=== PATIENT | female | born 1960 | race Caucasian/White ===

== ENCOUNTER 2016-12-08 16:08 | Inpatient (IN) ==
[2016-12-08] MEDS ORDERED: ALBUTEROL/IPRATROPIUM 2.5mg-0.5mg/3ml NEB IH ONE (16:21)
[2016-12-08] MEDS ORDERED: ALBUTEROL 2.5mg/0.5ml (0.5%) NEB IPPB ONE (16:44)
[2016-12-08] MEDS ORDERED: ALBUTEROL 2.5mg/0.5ml (0.5%) NEB AEROSOL ONE (16:45)
--- NOTE | 2016-12-08 16:56 | Emergency Department Report ---
SOB HPI - General Chief Complaint: Shortness of Breath/Dyspnea Stated Complaint: diff breathing Time Seen by Provider: 12/08/16 16:20 Source: patient, EMS Mode of arrival: EMS Limitations: no limitations - History of Present Illness 56yo woman presented to the ER for SOA. Pts sx started yesterday; has gotten quickly worse. Pt has also been coughing up copious sputum. Pt has been taking her medications, but they have not helped. Pt called EMS today, because sx got too much to handle. Pt was given duonebs x3 and 125mg IV solumedrol en route to the ER with some improvement in sx. MD Complaint: shortness of breath, cough Onset (ago): hour(s) (36) Severity: severe Consistency/Duration: constant Relieving factors: oxygen, bronchodilators, upright position Exacerbating factors: lying flat, exertion, movement, coughing Known history of: COPD Treatment prior to arrival: bronchodilator, other - Related Data Home Medications Medication Instructions Recorded Confirmed Ipratropium/Albuterol Sulfate 1 puff PO QID PRN #0 05/02/16 12/08/16 [Combivent Respimat Inhal [place]] ARIPiprazole [Aripiprazole] 15 mg PO DAILY 11/30/16 12/08/16 Albuterol Inhaler [Ventolin Hfa] 1 puff ORAL INH Q4H PRN 11/30/16 12/08/16 Atorvastatin Calcium 20 mg PO DAILY 11/30/16 12/08/16 Duloxetine HCl [Cymbalta] 60 mg PO DAILY 11/30/16 12/08/16 Insulin Aspart [Novolog Flexpen] 50 unit SQ TIDWM 11/30/16 12/08/16 Insulin Degludec [Tresiba 150 unit SQ HS 11/30/16 12/08/16 Flextouch U-200] Ipratropium/Albuterol Sulfate 3 ml AEROSOL RTQID PRN 11/30/16 12/08/16 [Iprat-Albut 0.5-3(2.5) mg/3 ml] Lisinopril [Prinivil] 5 mg PO DAILY 11/30/16 12/08/16 Metformin HCl 1,000 mg PO BIDWM 11/30/16 12/08/16 Naproxen 250 mg PO TID 11/30/16 12/08/16 Tiotropium [place] [Spiriva] 1 cap ORAL INH DAILY PRN 11/30/16 12/08/16 Previous Rx's Medication Instructions Recorded gabapentin 300 mg capsule 300 mg PO TID #270 cap 11/12/16 omeprazole 20 mg capsule,delayed 20 mg PO DAILY #90 cap 11/28/16 release hydroCHLOROthiazide 12.5 mg PO DAILY #15 tab 11/30/16 [Hydrochlorothiazide] Allergies Allergy/AdvReac Type Severity Reaction Status Date / Time No Known Drug Allergies Allergy Unknown Verified 12/08/16 16:29 Review of Systems All systems: reviewed and negative except as stated Respiratory: Reports: cough, dyspnea, wheezes PFSH Patient Stated Medical History Peripheral Neuropathy Yes Hypertension Yes Chronic Obstructive Pulmonary Yes Disease (COPD) Diabetes Mellitus Type 2 Yes Gastroesophageal Reflux Yes Disease Osteoarthritis Yes Depression Yes Other Behavioral Health Yes: takes antispycotic/mood stabilizer Clinic Medical History (Last Updated 12/01/16 @ 00:01 by Allegra Albright) Anxiety (Chronic Medical) COPD (chronic obstructive pulmonary disease) (Chronic Medical) Depression (Chronic Medical) Diabetes (Chronic Medical) GERD (gastroesophageal reflux disease) (Chronic Medical) HTN (hypertension) (Chronic Medical) MARGARITA (obstructive sleep apnea) (Chronic Medical) Bronchitis (Resolved Medical) Surgical History: tubal ligation -age 29. Hysterectomy age 45. Right knee replacement-2013 - Social History Smoking status: Current some day smoker Current residence: Apartment/Private Home Physical Exam - Limitations Limitations: no limitations - General General appearance: alert, in distress (Respiratory), obese - Normal Exams: Head:: Normocephalic without trauma Eyes:: Pupils are PERRLA w/ EOMI, No scleral icterus, irritation, or foreign bodies noted ENMT:: No facial trauma, nasal exudates, pharyngeal erythema, or exudates are noted Neck:: Full range of motion, without adenopathy, JVD, bruits or thyromegaly Abdomen:: Bowel sounds positive, soft, non-tender, non-distended, no hepatosplenomegaly, masses or bruits noted Lymphatic:: No lymphadenopathy, or lymphedema noted Musculoskeletal:: No tenderness, or deformity noted, good range of motion, all extremities Integumentary:: No rashes, hives, or bruising noted, hair and nails, without abnormality Neurological:: Patient is alert, and oriented, cranial nerves, motor/sensory/ cerebellar, exams w/o gross deficits, to observation Psychiatric:: Patient exhibits, appropriate attention, emotion and affect - Chest Chest inspection: Present: normal inspection, symmetric chest wall rise, tenderness. Absent: rash - Respiratory Respiratory exam: Present: wheezes (Throughout), crackles (Throughout). Absent : normal lung sounds bilaterally, respiratory distress, prolonged expiratory phase - Cardiovascular Cardiovascular exam: Present: normal rhythm, tachycardia, normal heart sounds, + S1, +S2. Absent: regular rate, systolic murmur, diastolic murmur, +S3, +S4 Course - Consultations Consultation #1: Hospitalist: Will present to dewayne farmer in ER. Time: 17:51 Vital Signs Temperature 98.3 F 12/08/16 16:05 Pulse Rate 109 H 12/08/16 16:05 Respiratory Rate 32 H 12/08/16 16:05 Blood Pressure 171/94 H 12/08/16 16:05 Pulse Oximetry 95 12/08/16 16:05 Temperature 97.3 F 12/09/16 04:00 Pulse Rate 82 12/09/16 07:00 Respiratory Rate 19 12/09/16 07:00 Blood Pressure 162/88 H 12/09/16 07:00 Pulse Oximetry 90 12/09/16 07:00 Shortness of Breath/Dyspnea - Differential Diagnosis Likely: acute exacerbation of chronic obstructive airways disease, congestive heart failure, community acquired pneumonia, asthma with exacerbation - Medical Records Attestation: I reviewed the patient's medical records. - Lab Data Result diagrams: 12/09/16 04:52 12/09/16 04:52 Lab Results 12/08/16 12/08/16 12/08/16 Range/Units 16:47 16:47 16:54 WBC 12.1 H (4.5-11.0) T/MM3 RBC 5.01 (4.00-5.20) M/MM3 Hgb 15.1 (12-16) GM/DL Hct 47.4 H (36-46) % MCV 94.6 (80-100) UM3 MCH 30.1 (26-34) UUG MCHC 31.9 (31-37) GM/DL RDW Std Deviation 48.2 (36.9-50.2) FL Plt Count 231 (130-400) T/MM3 MPV 11.8 (9.4-12.4) UM3 Immature Gran % (Auto) 0.3 (0.0-0.5) % Neut % (Auto) 75.8 H (33-66) % Lymph % (Auto) 17.8 L (23-45) % [place] % (Auto) 5.7 (0-9.0) % Eos % (Auto) 0.2 (0-4) % Baso % (Auto) 0.2 (0-2) % Neut # 9.2 H (1.8-7.7) T/MM3 Lymph # 2.2 (1-4.8) T/MM3 [place] # 0.7 (0-0.8) T/MM3 Eos # 0.0 (0-0.5) T/MM3 Baso # 0.0 (0-0.2) T/MM3 Abs Immat Gran (auto) 0.04 H (0.00-0.03) T/MM3 VBG pH 7.380 (7.31-7.41) VBG pCO2 59 H (40-52) MMHG VBG pO2 72 H (40-52) MMHG VBG HCO3 35 H (22-26) MEQ/L VBG Total CO2 36.7 MEQ/L VBG O2 Saturation 94.0 % VBG Base Excess 7.9 H (-2.0-2.0) MMOL/L O2 Delivery Method Room air Turbidity < 20 (0-20) Sodium 145 H (134-144) MEQ/L Potassium 4.4 (3.6-5) MEQ/L Chloride 100 (98-107) MEQ/L Carbon Dioxide 32 H (22-30) MEQ/L Anion Gap 13 (5-15) MEQ/L BUN 10.0 (7-17) MG/DL Creatinine 0.6 L (0.7-1.2) MG/DL GFR Calculation 103 BUN/Creatinine Ratio 17 (6-26) RATIO Glucose 260 H (65-110) MG/DL Calculated Osmolality 287 H (261-280) MOSM/KG Calcium 10.5 H (8.4-10.2) MG/DL Icterus Index < 2 (0-7) Specimen Hemolysis 18 (0-25) - Radiology Data Attestation: I reviewed the patient's radiology results. CXR: Interval CXR improvement. No acute pathology. Disposition Clinical Impression: COPD Disposition: To [facility] [place] Acute Care Condition: Improved Time of Disposition: 17:45 - Seen By: physician
[2016-12-08] MEDS: MAGNESIUM SULFATE 1gm PREMIX 1 GM/100 ML BAG IV SCH ×2 (18:28→18:50)
[2016-12-08] MEDS ORDERED: ONDANSETRON 4 MG/2 ML INJECTION IVP PRN (19:12)
[2016-12-08] MEDS ORDERED: TIOTROPIUM 18mcg/cap HANDIHALER ORAL INH PRN (19:15)
--- NOTE | 2016-12-08 19:22 | History & Physical Report ---
History of Present Illness Date: 12/08/16 Chief complaint: difficulty breathing HPI: Patient is a pleasant 56-year-old female with history of COPD. She has obstructive sleep apnea and uses CPAP with 2 L at night. Otherwise, she does not use oxygen. She quit smoking last April. She states that 2 days ago she began to have increasing shortness of breath and increasing cough. She also feels lightheaded when she stands up and feels like she might pass out. She has not been eating or drinking well. She states she just "doesn't feel good". She has a mild headache. She has chronic low back pain. She denies any chest pain. She's been coughing up occasional phlegm which is blum colored. No blood in her phlegm. She has felt feverish but her temperature was not elevated. She's had some sweats but no chills. She has some rhinorrhea and sinus congestion but does not feel like she has a cold or allergies. She has some mild nausea but no abdominal pain, no vomiting, no diarrhea or constipation. She is urinating without difficulties. EMS was called secondary to her shortness of breath and she was found to be hypoxic and placed on nonrebreather mask and given 3 DuoNeb treatments and 125 mg of Solu-Medrol. In the emergency room she had a chest x-ray which showed no acute abnormalities. CBC reveals a mildly elevated white count of 12.1 with no significant left shift. Hemoglobin and platelets are normal. Calcium is mildly elevated at 10.5 and sodium was 145. Glucose is 260. VBG showed a pH of 7.38, PCO2 59, PO2 of 72. Blood cultures 2 were obtained. Currently the patient is still needing 6 L of oxygen per nasal cannula with O2 sat around 90%. She is being admitted to CCU for close observation with COPD exacerbation. Patient sees Dr. Clement for primary care. Review of Systems Review of systems: The patient has history of anxiety and schizophrenia and depression and states she is doing well on her current psychiatric medications. Otherwise complaints review of systems is negative other than the above in history of present illness. [facility] Medical History (Last Updated 12/01/16 @ 00:01 by Allegra Albright) Anxiety (Chronic Medical) COPD (chronic obstructive pulmonary disease) (Chronic Medical) Depression (Chronic Medical) Diabetes (Chronic Medical) GERD (gastroesophageal reflux disease) (Chronic Medical) HTN (hypertension) (Chronic Medical) MARGARITA (obstructive sleep apnea) (Chronic Medical) Bronchitis (Resolved Medical) Medical History Updates: Type 2 diabetes mellitus for at least 2 years. Schizophrenia. JEAN/BSO. Cholecystectomy. Tubal ligation. Right total knee surgery. Obstructive sleep apnea for which she uses CPAP and 2 L of oxygen at night Surgical History: tubal ligation -age 29. Hysterectomy age 45. Right knee replacement-2014. Cholecystectomy Family History: No family history of COPD or asthma. Mother of sepsis from the wound and had history of diabetes. Father from bone cancer - Social History Smoking status: Former smoker (quit in April 2016) Substance use type: marijuana Alcohol intake: never (the patient wants to be full code. She wants her daughter Maryan to make medical decisions for her if she is unable to make them herself. Her phone number is [phone]) Current residence: Apartment/Private Home Medications Home Medications Medication Instructions Recorded Confirmed Type Ipratropium/Albuterol Sulfate 1 puff PO QID PRN #0 05/02/16 12/08/16 History [Combivent Respimat Inhal [place]] ARIPiprazole [Aripiprazole] 15 mg PO DAILY 11/30/16 12/08/16 History Albuterol Inhaler [Ventolin Hfa] 1 puff ORAL INH Q4H PRN 11/30/16 12/08/16 History Atorvastatin Calcium 20 mg PO DAILY 11/30/16 12/08/16 History Duloxetine HCl [Cymbalta] 60 mg PO DAILY 11/30/16 12/08/16 History Insulin Aspart [Novolog Flexpen] 50 unit SQ TIDWM 11/30/16 12/08/16 History Insulin Degludec [Tresiba 150 unit SQ HS 11/30/16 12/08/16 History Flextouch U-200] Ipratropium/Albuterol Sulfate 3 ml AEROSOL RTQID PRN 11/30/16 12/08/16 History [Iprat-Albut 0.5-3(2.5) mg/3 ml] Lisinopril [Prinivil] 5 mg PO DAILY 11/30/16 12/08/16 History Metformin HCl 1,000 mg PO BIDWM 11/30/16 12/08/16 History Naproxen 250 mg PO TID 11/30/16 12/08/16 History Tiotropium [place] [Spiriva] 1 cap ORAL INH DAILY PRN 11/30/16 12/08/16 History Allergies Allergy/AdvReac Type Severity Reaction Status Date / Time No Known Drug Allergies Allergy Unknown Verified 12/08/16 16:29 Exam Vital Signs: Temperature 98.3 F 12/08/16 16:05 Pulse Rate 106 H 12/08/16 19:00 Respiratory Rate 32 H 12/08/16 18:45 Blood Pressure 171/94 H 12/08/16 16:05 Pulse Oximetry 90 12/08/16 19:00 Height: 1.59 m Weight: 106.594 kg Comments: Patient is currently on 6 L of oxygen with O2 sat of 90%. Heart rate 110. Blood pressure 143/104. GEN-the patient has moderate conversational dyspnea, mild distress secondary to anxiety and dyspnea HEENT-sclera anicteric, oropharynx is moist NECK-supple CV-borderline tachycardic rate with irregular rhythm CHEST-wheezes throughout the lung [place] ABD-soft, nontender, nondistended with positive bowel sounds -no Macias EXT-no edema NEURO-no focal deficits SKIN-warm and dry and without rashes Psychiatric-mild anxiety, patient denies suicidal or homicidal ideation Results - Labs CBC & Chem 7: 12/08/16 16:47 12/08/16 16:47 - Imaging and Cardiology Chest x-ray Status: image reviewed by me Additional comments: Chest x-ray reveals no obvious infiltrates. Heart size is normal. Assessment and Plan DVT Prophylaxis: SCD's, Lovenox GI Prophylaxis: other Resuscitation Status: Full Code Assessment and Plan: Impression Acute hypoxic respiratory failure COPD exacerbation Obstructive sleep apnea Acute bronchitis Type 2 diabetes mellitus-poorly controlled Hypertension Hypercalcemia Presyncope-possible dehydration Schizophrenia with anxiety Plan Admit as inpatient to CCU for close monitoring with COPD exacerbation and high oxygen needs. Continue breathing treatments, supplemental oxygen, and Solu- Medrol 125 mg IV every 6 hours. Rocephin 1 g IV daily start today. Repeat chest x-ray tomorrow. Sputum for Gram stain, culture and sensitivity. Viral respiratory swab. Monitor Accu-Cheks and give usual home insulin. May need supplemental insulin. Reglan as needed for nausea Lovenox and SCDs for DVT prophylaxis Continue home PPI. We'll give 1 L of IV fluids for dehydration with hypercalcemia and recheck in the morning Greater than 1 hour time spent seeing and evaluating the patient in determining care plan. Hospital Course Summary Disclaimer: The visit summary below is not to be considered part of the above Progress Note.
[2016-12-08] MEDS: NS 1,000 ML IV SCH (19:46)
[2016-12-08] MEDS: ALBUTEROL/IPRATROPIUM 2.5mg-0.5mg/3ml NEB AEROSOL SCH (19:50)
[2016-12-08 19:54] VITALS: BMI 37.9
[2016-12-08] MEDS: CEFTRIAXONE 1 G in NS 100 ML IV SCH (20:11)
[2016-12-08] MEDS: SALINE FLUSH 10ml SYRINGE IVF PRN (20:14)
[2016-12-08] MEDS: METHYLPREDNISOLONE SOD SUCC 125mg/2ml INJECTION IVP SCH (21:25)
[2016-12-08] MEDS: GABAPENTIN 300 MG CAPSULE PO SCH (21:25)
[2016-12-08] MEDS ORDERED: INSULIN DEGLUDEC SQ SCH (22:00)
[2016-12-08] MEDS ORDERED: GLUCOSE ORAL GEL 40% 37.5gm PO PRN (22:12)
[2016-12-08] MEDS ORDERED: INSULIN ASPART 100unit/ml INJECTION SQ PRN (22:12)
[2016-12-08] MEDS ORDERED: DEXTROSE 50% SYRINGE 50ml (1 AMP) IVP PRN (22:27)
[2016-12-08] MEDS: INSULIN GLARGINE 100unit/ml INJECTION SQ SCH (23:30)
[2016-12-08] MEDS: INSULIN ASPART 100unit/ml INJECTION SQ PRN (23:34)
[2016-12-09] MEDS: ALBUTEROL/IPRATROPIUM 2.5mg-0.5mg/3ml NEB AEROSOL SCH ×7 (01:59→23:30)
[2016-12-09] MEDS: METHYLPREDNISOLONE SOD SUCC 125mg/2ml INJECTION IVP SCH ×4 (03:37→21:40)
[2016-12-09] MEDS: SALINE FLUSH 10ml SYRINGE IVF PRN ×2 (03:37→10:21)
[2016-12-09] MEDS: HYDROCODONE/APAP 5mg/325mg TABLET PO PRN (04:57)
[2016-12-09] MEDS: INSULIN ASPART 100unit/ml INJECTION SQ PRN ×4 (05:55→21:41)
[2016-12-09] MEDS: NS 1,000 ML IV SCH ×2 (06:08→15:11)
--- NOTE | 2016-12-09 07:40 | XRay Report ---
INDICATION: dyspnea PROCEDURE: CHEST 2-VIEWS UPRIGHT (PA & LAT) Encounter: Initial COMPARISON: November 30, 2016 Findings: The lungs are stable in appearance without new focal airspace consolidation. There is no pleural effusion or pneumothorax. The heart size, pulmonary vascularity and mediastinal contours are unchanged. IMPRESSION: Stable appearance of the chest. .
[2016-12-09] MEDS: INSULIN ASPART 100unit/ml INJECTION SQ SCH ×3 (08:41→17:25)
--- NOTE | 2016-12-09 08:56 | Progress Note ---
Subjective: The patient states that she's feeling better this morning. She is breathing more easily. She continues to have a cough but it is decreasing. She denies any headache, chest pain or abdominal pain. She still feels lightheaded when she stands up. She is urinating. She has not had a bowel movement yet. She was able to use her CPAP for about 4 hours last night. Appetite is good. Objective Vital signs: Temperature 97.3 F 12/09/16 04:00 Pulse Rate 82 12/09/16 07:00 Respiratory Rate 19 12/09/16 07:00 Blood Pressure 162/88 H 12/09/16 07:00 Pulse Oximetry 90 12/09/16 07:00 Oxygen Delivery Method High Flow Nasal Cannula Oxygen Flow Rate 7 Height: 1.59 m Weight: 95.6 kg Body Mass Index: 37.9 Comments: Urine output 1.25 L since admission last night GEN-alert, oriented, no acute distress. Overall looks much more comfortable than last night HEENT-sclera anicteric, oropharynx is moist NECK-supple CV-distant heart tones, regular rate and rhythm CHEST-and expiratory wheezes bilaterally. Overall wheezes much better than last night ABD-soft, nontender with positive bowel sounds -no Macias EXT-patient has edema of the right foot and mild calf tenderness. Trace edema of the left lower extremity NEURO-no focal deficits SKIN-warm and dry and without rashes Results - Labs CBC & Chem 7: 12/09/16 04:52 12/09/16 04:52 Labs: Calcium has improved from 10.5-9.7. Viral respiratory panel was positive for rhinovirus Blood sugars have been in the 200 range TSH 0.58 AST mildly elevated at 38, a T mildly elevated at 53 Microbiology Results: Microbiology 12/08/16 21:05 Sputum, Expectorated Gram Stain - Final 12/08/16 21:05 Sputum, Expectorated Sputum Culture - Preliminary Early growth - Imaging and Cardiology Chest x-ray Status: image reviewed by me Additional comments: Chest x-ray yesterday, stable appearance of the chest. Chest x-ray today on my read is unchanged from yesterday Assessment and Plan DVT Prophylaxis: SCD's, Lovenox GI Prophylaxis: other Resuscitation Status: Full Code Assessment and Plan: 12/09/2016 Impression Acute hypoxic respiratory failure-still requiring high flow oxygen at approximately 7 L with O2 sats 88-90% COPD exacerbation-improving symptomatically Obstructive sleep apnea Acute bronchitis-rhinovirus positive Type 2 diabetes mellitus-poorly controlled Hypertension Hypercalcemia-resolved Presyncope-possible dehydration-improved but not resolved Schizophrenia with anxiety-mood and anxiety is better today Right lower extremity edema and pain, rule out DVT Plan Regarding acute hypoxic respiratory failure we'll continue breathing treatments , steroids and supplemental oxygen. Continue CPAP at night. Increase activity as tolerated Restart metformin and check hemoglobin A1c regarding diabetes. Give sliding scale insulin DC IV fluids 1 current bag is empty Continue Rocephin for now for COPD exacerbation Restart lisinopril for hypertension. Continue off hydrochlorothiazide due to the patient's lightheadedness with standing Venous Doppler of the right lower extremity to rule out DVT Repeat CBC and basic metabolic profile tomorrow Possible transfer later today if respiratory status is stable to improving - Time spent with patient greater than 35 minutes Sepsis Assessment - Evaluation Sepsis screening result: No Definite Risk Hospital Course Summary Disclaimer: The visit summary below is not to be considered part of the above Progress Note. Hospital Course: 12/08/2016 Impression Acute hypoxic respiratory failure COPD exacerbation Obstructive sleep apnea Acute bronchitis Type 2 diabetes mellitus-poorly controlled Hypertension Hypercalcemia Presyncope-possible dehydration Schizophrenia with anxiety Plan Admit as inpatient to CCU for close monitoring with COPD exacerbation and high oxygen needs. Continue breathing treatments, supplemental oxygen, and Solu- Medrol 125 mg IV every 6 hours. Rocephin 1 g IV daily start today. Repeat chest x-ray tomorrow. Sputum for Gram stain, culture and sensitivity. Viral respiratory swab. Monitor Accu-Cheks and give usual home insulin. May need supplemental insulin. Reglan as needed for nausea Lovenox and SCDs for DVT prophylaxis Continue home PPI. We'll give 1 L of IV fluids for dehydration with hypercalcemia and recheck in the morning Greater than 1 hour time spent seeing and evaluating the patient in determining care plan. 12/09/16 08:58
--- NOTE | 2016-12-09 09:54 | Ultrasound Report ---
EXAM: US venous doppler LE RT. Right lower extremity venous Doppler study. LOCATION OF DICTATION: [facility]. HISTORY: swelling and pain of right lower extremity COMPARISON: None available. DESCRIPTION: Color Doppler interrogation was performed. There is no evidence for deep venous thrombosis. There is good color Doppler flow, normal venous wave forms with respiratory variation and augmentation and compressibility from the common femoral vein, SFV, popliteal vein to at least the veins in the distal calf(s). IMPRESSION: No evidence for deep venous thrombosis. .
--- NOTE | 2016-12-09 09:58 | XRay Report ---
EXAM: XR chest 1V COMPARISON: 12/08/2016. 12/01/2015. HISTORY: hypoxia . Shortness of air on exertion. FINDINGS: The heart is upper limits of normal to mildly enlarged. The pulmonary vascularity appears unremarkable. The lungs are clear. There is no evidence for pleural effusion. There is no evidence for a pneumothorax. No osseous abnormalities are identified. IMPRESSION: The heart is upper limits of normal to mildly enlarged. Otherwise unremarkable without acute process identified. LOCATION OF DICTATION: [facility] .
[2016-12-09] MEDS: ENOXAPARIN 40 MG/0.4 ML INJECTION SQ SCH (10:19)
[2016-12-09] MEDS: DULOXETINE 60 MG CAPSULE PO SCH (10:19)
[2016-12-09] MEDS: GABAPENTIN 300 MG CAPSULE PO SCH ×3 (10:19→21:41)
[2016-12-09] MEDS: OMEPRAZOLE 20 MG CAPSULE PO SCH (10:20)
[2016-12-09] MEDS: LISINOPRIL 5 MG TABLET PO SCH (12:14)
[2016-12-09] MEDS: ARIPiprazole 15 MG TABLET PO SCH (12:14)
[2016-12-09] MEDS: METFORMIN 1,000 MG TABLET PO SCH (17:25)
[2016-12-09] MEDS: CEFTRIAXONE 1 G in NS 100 ML IV SCH (18:40)
[2016-12-09] MEDS: ATORVASTATIN 20 MG TABLET PO SCH (21:41)
[2016-12-09] MEDS: INSULIN GLARGINE 100unit/ml INJECTION SQ SCH (21:42)
[2016-12-10] MEDS: ALBUTEROL/IPRATROPIUM 2.5mg-0.5mg/3ml NEB AEROSOL SCH ×6 (03:05→23:23)
[2016-12-10] MEDS: METHYLPREDNISOLONE SOD SUCC 125mg/2ml INJECTION IVP SCH ×4 (06:11→21:14)
[2016-12-10] MEDS: OMEPRAZOLE 20 MG CAPSULE PO SCH (06:15)
[2016-12-10] MEDS: INSULIN ASPART 100unit/ml INJECTION SQ PRN ×3 (06:53→15:02)
[2016-12-10] MEDS: GABAPENTIN 300 MG CAPSULE PO SCH ×3 (08:45→21:13)
[2016-12-10] MEDS: ARIPiprazole 15 MG TABLET PO SCH (08:45)
[2016-12-10] MEDS: LISINOPRIL 5 MG TABLET PO SCH (08:45)
[2016-12-10] MEDS: DULOXETINE 60 MG CAPSULE PO SCH (08:45)
[2016-12-10] MEDS: METFORMIN 1,000 MG TABLET PO SCH ×2 (08:45→17:45)
[2016-12-10] MEDS: INSULIN ASPART 100unit/ml INJECTION SQ SCH ×3 (08:46→17:45)
[2016-12-10] MEDS: SALINE FLUSH 10ml SYRINGE IVF PRN ×2 (08:55→15:00)
--- NOTE | 2016-12-10 10:06 | Progress Note ---
Subjective: The patient states that her breathing feels worse today. She continues to cough and has coughed up some blum phlegm. She denies any pain. She is eating and drinking okay. Blood pressure was elevated this morning but is improved now. She feels very hot but does not have a fever. She states her fatigue is better. She has been urinating well. Objective Vital signs: Temperature 98 F 12/10/16 08:00 Pulse Rate 83 12/10/16 08:00 Respiratory Rate 62 H 12/10/16 08:00 Blood Pressure 191/115 H 12/10/16 08:00 Pulse Oximetry 86 L 12/10/16 08:00 Oxygen Delivery Method Nasal Cannula Oxygen Flow Rate 7 Weight: 109.5 kg Comments: I&O yesterday is 3200/1250 Currently O2 sat is 88-90% on 7-1/2 L GEN-alert, oriented, no acute distress. Face is flushed. No obvious rash. HEENT-anicteric, oropharynx is moist NECK-supple CV-regular rate and rhythm CHEST-and expiratory wheezes bilaterally. Lungs sound improved compared to admission ABD-soft, nontender with positive bowel sounds -no Macias EXT-trace edema NEURO-no focal deficits SKIN-warm and dry. Face is flushed. No rashes Results - Labs CBC & Chem 7: 12/10/16 05:10 12/10/16 05:10 Labs: Blood specimen is hemolyzed. Microbiology Results: Microbiology 12/08/16 21:05 Sputum, Expectorated Gram Stain - Final 12/08/16 21:05 Sputum, Expectorated Sputum Culture - Preliminary Early growth Assessment and Plan Assessment and Plan: 12/10/2016 Impression Acute hypoxic respiratory failure-still requiring high flow oxygen at approximately 7.5 L with O2 sats 88-90% COPD exacerbation- Obstructive sleep apnea-chronically on CPAP with 2 L of oxygen at night Acute bronchitis-rhinovirus positive Type 2 diabetes mellitus-poorly controlled Hypertension Dehydration -resolved Hypercalcemia-resolved Presyncope-improving Schizophrenia with anxiety-doing okay Right lower extremity edema-improved today-venous Doppler yesterday negative for DVT Mildly elevated potassium is likely a false reading with hemolyzed blood specimen Plan Continue steroids, oxygen, breathing treatments. Rocephin for COPD exacerbation. Patient is rhinovirus positive. Consider pulmonology consult since oxygenation is not improving. Continue current treatment for diabetes. But sugars improved after restarting metformin. Check chest x-ray today. Add guaifenesin and Tessalon Perles cough Encourage by mouth fluids CBC and basic metabolic profile tomorrow Sepsis Assessment - Evaluation Sepsis screening result: Sepsis Risk Hospital Course Summary Disclaimer: The visit summary below is not to be considered part of the above Progress Note. Hospital Course: 12/08/2016 Impression Acute hypoxic respiratory failure COPD exacerbation Obstructive sleep apnea Acute bronchitis Type 2 diabetes mellitus-poorly controlled Hypertension Hypercalcemia Presyncope-possible dehydration Schizophrenia with anxiety Plan Admit as inpatient to CCU for close monitoring with COPD exacerbation and high oxygen needs. Continue breathing treatments, supplemental oxygen, and Solu- Medrol 125 mg IV every 6 hours. Rocephin 1 g IV daily start today. Repeat chest x-ray tomorrow. Sputum for Gram stain, culture and sensitivity. Viral respiratory swab. Monitor Accu-Cheks and give usual home insulin. May need supplemental insulin. Reglan as needed for nausea Lovenox and SCDs for DVT prophylaxis Continue home PPI. We'll give 1 L of IV fluids for dehydration with hypercalcemia and recheck in the morning Greater than 1 hour time spent seeing and evaluating the patient in determining care plan. 12/09/2016 Impression Acute hypoxic respiratory failure-still requiring high flow oxygen at approximately 7 L with O2 sats 88-90% COPD exacerbation-improving symptomatically Obstructive sleep apnea Acute bronchitis-rhinovirus positive Type 2 diabetes mellitus-poorly controlled Hypertension Hypercalcemia-resolved Presyncope-possible dehydration-improved but not resolved Schizophrenia with anxiety-mood and anxiety is better today Right lower extremity edema and pain, rule out DVT Plan Regarding acute hypoxic respiratory failure we'll continue breathing treatments , steroids and supplemental oxygen. Continue CPAP at night. Increase activity as tolerated Restart metformin and check hemoglobin A1c regarding diabetes. Give sliding scale insulin DC IV fluids 1 current bag is empty Continue Rocephin for now for COPD exacerbation Restart lisinopril for hypertension. Continue off hydrochlorothiazide due to the patient's lightheadedness with standing Venous Doppler of the right lower extremity to rule out DVT Repeat CBC and basic metabolic profile tomorrow Possible transfer later today if respiratory status is stable to improving 12/10/16 10:07 12/10/16 10:07
[2016-12-10] MEDS: ENOXAPARIN 40 MG/0.4 ML INJECTION SQ SCH (10:15)
--- NOTE | 2016-12-10 11:23 | XRay Report ---
Indication: hypoxia with copd exac PROCEDURE: XR chest 1V: Encounter: Initial Comparison: December 09, 2016 Findings: Lungs are stable and grossly clear. No new consolidation. No pleural effusion or pneumothorax. The heart size and mediastinal contours are unchanged. Pulmonary vascularity appears normal. Impression: Stable appearance of the chest. .
[2016-12-10] MEDS ORDERED: ALBUTEROL/IPRATROPIUM 2.5mg-0.5mg/3ml NEB IPPB SCH (11:45)
[2016-12-10] MEDS: GUAIFENESIN LA 600 MG TABLET PO SCH ×2 (12:34→21:13)
[2016-12-10] MEDS: BENZONATATE 100 MG CAPSULE PO SCH ×3 (12:36→21:13)
[2016-12-10] MEDS ORDERED: FUROSEMIDE 40 MG/4 ML INJECTION IVP ONE (13:28)
[2016-12-10] MEDS: CEFTRIAXONE 1 G in NS 100 ML IV SCH (20:00)
[2016-12-10] MEDS: ATORVASTATIN 20 MG TABLET PO SCH (21:13)
[2016-12-10] MEDS: INSULIN GLARGINE 100unit/ml INJECTION SQ SCH (21:14)
[2016-12-11] MEDS: ALBUTEROL/IPRATROPIUM 2.5mg-0.5mg/3ml NEB AEROSOL SCH (02:57)
[2016-12-11] MEDS: ACETAMINOPHEN 500 MG TABLET PO PRN (03:09)
[2016-12-11] MEDS: METHYLPREDNISOLONE SOD SUCC 125mg/2ml INJECTION IVP SCH ×4 (03:10→21:11)
[2016-12-11] MEDS: DiltiaZEM 25 MG/5 ML INJECTION IVP SCH ×2 (03:23→11:51)
[2016-12-11] MEDS: OMEPRAZOLE 20 MG CAPSULE PO SCH (05:31)
[2016-12-11] MEDS: DiltiaZEM Drip 125 MG in NS 100 ML IV SCH ×2 (05:54→14:19)
[2016-12-11] MEDS: DULOXETINE 60 MG CAPSULE PO SCH (08:17)
[2016-12-11] MEDS: BENZONATATE 100 MG CAPSULE PO SCH ×3 (08:17→21:09)
[2016-12-11] MEDS: GABAPENTIN 300 MG CAPSULE PO SCH ×3 (08:17→21:09)
[2016-12-11] MEDS: ARIPiprazole 15 MG TABLET PO SCH (08:17)
[2016-12-11] MEDS: GUAIFENESIN LA 600 MG TABLET PO SCH ×2 (08:17→21:09)
[2016-12-11] MEDS: LISINOPRIL 5 MG TABLET PO SCH (08:17)
[2016-12-11] MEDS: INSULIN ASPART 100unit/ml INJECTION SQ SCH ×3 (08:18→17:31)
[2016-12-11] MEDS: METFORMIN 1,000 MG TABLET PO SCH ×2 (08:18→17:30)
[2016-12-11] MEDS: ENOXAPARIN 40 MG/0.4 ML INJECTION SQ SCH (08:18)
[2016-12-11] MEDS ORDERED: AMIODARONE 900 MG in NS 500ml 500 ML IV SCH ×2 (08:45→14:45)
[2016-12-11] MEDS ORDERED: AMIODARONE 150 MG in NS 100 ML IV ONE (08:45)
--- NOTE | 2016-12-11 08:57 | Cardiology Consult Note ---
History of Present Illness Consult date: 12/11/16 <LoveMary crabtree - 12/11/16 09:29> Requesting physician: Ermelinda Clay <Mary Aleman 12/11/16 09:29> Consult reason: atrial fibrillation <Mary Aleman - 12/11/16 09:29> Chief complaint: dyspnea <Mary Aleman 12/11/16 09:29> History of present illness: Roselyn is a 56-year-old female with history of COPD. She has obstructive sleep apnea and uses CPAP with 2 L at night. Otherwise, she does not use oxygen. She quit smoking last April. Last weekend she began to have increasing shortness of breath and increasing cough. She also feels lightheaded when she stands up and feels like she might pass out. She has not been eating or drinking well. She states she just "doesn't feel good". She was admitted to CCU for COPD exacerbation and tested positive for RhinoVirus. Around 0330 this morning she was noted to be in AFib RVR on telemetry. She was given IV Cardizem and then Cardizem drip and Dr. Nicholas was consulted. She is examined in her room in CCU. She is sitting upright in bed with fan blowing on her. She has some mild respiratory distress but is able to converse. She reports SOA and cough. She reports sternal chest pain that she had months ago but none this hospitalization. She denies feeling her heart racing, pounding or skipping, but states "I don't feel well." <Mary Aleman Minda 12/11/16 09:29> Review of Systems - Constitutional Constitutional: Absent: chills, fever(s) <Mary Aleman Minda 12/11/16 09:29> - EENMT Eyes: Absent: change in vision <LoveMary peña Minda 12/11/16 09:29> Balance: Absent: vertigo <LoveMary peña Minda 12/11/16 09:29> Mouth/Throat: Absent: sore throat <Mary Aleman Minda 12/11/16 09:29> - Cardiovascular Cardiovascular: Present: dyspnea on exertion, orthopnea. Absent: chest pain, palpitations, syncope, heart murmur <Mary Aleman 12/11/16 09:29> Vascular: Absent: pedal edema <Mary Aleman 12/11/16 09:29> - Respiratory Respiratory: Present: cough, dyspnea, dyspnea on exertion, wheezing, chest congestion, excessive phlegm production <Mary Aleman 12/11/16 09:29> - Gastrointestinal Gastrointestinal: Absent: diarrhea, nausea, vomiting <Mary Aleman 09:29> - Genitourinary Genitourinary: Absent: dysuria <Mary Aleman 12/11/16 09:29> - Integumentary/Breasts Integumentary: Absent: rash <Mary Aleman 12/11/16 09:29> - Neurological Neurological: Absent: dizziness <Mary Aleman 12/11/16 09:29> PFS Patient Stated Medical History Peripheral Neuropathy Yes Hypertension Yes Chronic Obstructive Pulmonary Yes Disease (COPD) Sleep Apnea Yes: Use CPap Diabetes Mellitus Type 2 Yes Gastroesophageal Reflux Yes Disease Osteoarthritis Yes Depression Yes Post Traumatic Stress Disorder Yes Other Behavioral Health Yes: takes antispycotic/mood stabilizer Clinic Medical History (Last Updated 12/11/16 @ 09:29 by Mary Aleman APRN) Anxiety (Chronic Medical) COPD (chronic obstructive pulmonary disease) (Chronic Medical) Depression (Chronic Medical) Diabetes (Chronic Medical) GERD (gastroesophageal reflux disease) (Chronic Medical) HTN (hypertension) (Chronic Medical) MARGARITA (obstructive sleep apnea) (Chronic Medical) Bronchitis (Resolved Medical) <Phill Nicholas - 12/11/16 11:55> Patient Stated Medical History Peripheral Neuropathy Yes Hypertension Yes Chronic Obstructive Pulmonary Yes Disease (COPD) Sleep Apnea Yes: Use CPap Diabetes Mellitus Type 2 Yes Gastroesophageal Reflux Yes Disease Osteoarthritis Yes Depression Yes Post Traumatic Stress Disorder Yes Other Behavioral Health Yes: takes antispycotic/mood stabilizer Clinic Medical History (Last Updated 12/01/16 @ 00:01 by Allegra Albright) Anxiety (Chronic Medical) COPD (chronic obstructive pulmonary disease) (Chronic Medical) Depression (Chronic Medical) Diabetes (Chronic Medical) GERD (gastroesophageal reflux disease) (Chronic Medical) HTN (hypertension) (Chronic Medical) MARGARITA (obstructive sleep apnea) (Chronic Medical) Bronchitis (Resolved Medical) <Mary Aleman 12/11/16 09:29> Medical History Updates: Type 2 diabetes mellitus for at least 2 years. Schizophrenia. JEAN/BSO. Cholecystectomy. Tubal ligation. Right total knee surgery. Obstructive sleep apnea for which she uses CPAP and 2 L of oxygen at night <Mary Aleman Minda - 12/11/16 09:29> Surgical History: tubal ligation -age 29. Hysterectomy age 45. Right knee replacement-2013 <LoveMary peña 12/11/16 09:29> Family History: No family history of heart disease. <Mary Aleman 12/11/16 09:29> - Social History Smoking status: Former smoker <Mary Aleman 12/11/16 09:29> Quit date: 05/19/16 <Mary Aleman 12/11/16 09:29> Substance use type: does not use <LoveMary peña 12/11/16 09:29> Alcohol intake frequency: does not drink <Mary Aleman 12/11/16 09:29> Housing: apartment <LoveMary 12/11/16 09:29> Current residence: Apartment/Private Home <Mary Aleman 12/11/16 09:29> Medications Home Medications Medication Instructions Recorded Confirmed Type Ipratropium/Albuterol Sulfate 1 puff PO QID PRN #0 05/02/16 12/08/16 History [Combivent Respimat Inhal [place]] ARIPiprazole [Aripiprazole] 15 mg PO DAILY 11/30/16 12/08/16 History Albuterol Inhaler [Ventolin Hfa] 1 puff ORAL INH Q4H PRN 11/30/16 12/08/16 History Atorvastatin Calcium 20 mg PO DAILY 11/30/16 12/08/16 History Duloxetine HCl [Cymbalta] 60 mg PO DAILY 11/30/16 12/08/16 History Insulin Aspart [Novolog Flexpen] 50 unit SQ TIDWM 11/30/16 12/08/16 History Insulin Degludec [Tresiba 150 unit SQ HS 11/30/16 12/08/16 History Flextouch U-200] Ipratropium/Albuterol Sulfate 3 ml AEROSOL RTQID PRN 11/30/16 12/08/16 History [Iprat-Albut 0.5-3(2.5) mg/3 ml] Lisinopril [Prinivil] 5 mg PO DAILY 11/30/16 12/08/16 History Metformin HCl 1,000 mg PO BIDWM 11/30/16 12/08/16 History Naproxen 250 mg PO TID 11/30/16 12/08/16 History Tiotropium [place] [Spiriva] 1 cap ORAL INH DAILY PRN 11/30/16 12/08/16 History <Phill Nicholas - 12/11/16 11:55> Allergies Allergy/AdvReac Type Severity Reaction Status Date / Time No Known Drug Allergies Allergy Unknown Verified 12/08/16 16:29 <Phill Nicholas - 12/11/16 11:55> Exam Vital signs: Temperature 97.1 F 12/11/16 07:15 Pulse Rate 120 H 12/11/16 09:14 Respiratory Rate 19 12/11/16 11:30 Blood Pressure 156/110 H 12/11/16 07:15 Pulse Oximetry 93 12/11/16 11:30 Oxygen Delivery Method Nasal Cannula Oxygen Flow Rate 6 <Phill Nicholas - 12/11/16 11:55> Temperature 97.1 F 12/11/16 07:15 Pulse Rate 135 H 12/11/16 08:00 Respiratory Rate 30 H 12/11/16 08:00 Blood Pressure 156/110 H 12/11/16 07:15 Pulse Oximetry 94 12/11/16 08:00 Oxygen Delivery Method Nasal Cannula Oxygen Flow Rate 6 <Mary Aleman - 12/11/16 09:29> - Constitutional mild distress, obese, cooperative <Mary Aleman - 12/11/16 09:29> - Routine HEENT Exam Head: Present: normocephalic <Mary Aleman 12/11/16 09:29> Nose: moist mucous membranes <Mary Aleman - 12/11/16 09:29> - Routine Neck Exam Absent: JVD, carotid bruit <Mary Aleman 12/11/16 09:29> - Routine Chest/Breast/Axilla Exam Chest wall: Absent: tenderness <Mary Aleman 12/11/16 09:29> - Routine Respiratory Exam Present: rales (diffuse), rhonchi, wheezes. Absent: CTA bilaterally <Mary Aleman 12/11/16 09:29> - Routine Cardiovascular Exam Present: irregularly irregular. Absent: no murmur, JVD <Mary Aleman 09:29> - Routine Abdominal Exam Present: soft, normoactive bowel sounds <Mary Aleman 12/11/16 09:29> - Routine Extremities Exam Present: no edema <Mary Aleman 12/11/16 09:29> - Detailed Extremities Exam: Vascular Peripheral pulses: 2+ posterior tibialis (L), 2+ posterior tibialis (R), 2+ dorsalis pedis (L), 2+ dorsalis pedis (R) <Mary Aleman 12/11/16 09:29> - Routine Skin Exam Present: intact, dry, warm <Mary Aleman 12/11/16 09:29> - Routine Neurological Exam Present: alert, oriented X3 <Mary Aleman 12/11/16 09:29> - Routine Psychiatric Exam Present: normal affect, normal thought process <Mary Aleman 12/11/16 09: 29> Results 12/11/16 04:41 12/11/16 04:41 <Phill Nicholas - 12/11/16 11:55> Cardiac Enzymes 12/11/16 12/11/16 Range/Units 04:41 10:29 Troponin I Cancelled < 0.012 CBC 12/11/16 Range/Units 04:41 WBC 16.4 H (4.5-11.0) T/MM3 RBC 4.97 (4.00-5.20) M/MM3 Hgb 14.7 (12-16) GM/DL Hct 46.6 H (36-46) % Plt Count 236 (130-400) T/MM3 Neut # Not performed Lymph # Not performed [place] # Not performed Eos # Not performed Baso # Not performed Comprehensive Metabolic Panel 12/11/16 Range/Units 04:41 Sodium 142 (134-144) MEQ/L Potassium 4.7 (3.6-5) MEQ/L Chloride 101 (98-107) MEQ/L Carbon Dioxide 33 H (22-30) MEQ/L BUN 24.0 H (7-17) MG/DL Creatinine 0.7 (0.7-1.2) MG/DL Glucose 176 H (65-110) MG/DL Calcium 10.4 H (8.4-10.2) MG/DL Intake and Output 12/10/16 12/11/16 12/11/16 22:59 06:59 14:59 Intake Total 520 / 520 5.250 / 5.250 461.5 / 461.5 Output Total 1250 / 1250 200 / 200 500 / 500 Balance -730 / -730 -194.750 / -194.750 -38.5 / -38.5 Intake: IV 100 / 100 5.250 / 5.250 51.5 / 51.5 Rocephin 1 G In Normal 100 / 100 Saline 100 ml @ 200 mls/ hr IV Q24H REI Rx#: [id number] Cardizem IV 125 mg In 5.250 / 5.250 51.5 / 51.5 Normal Saline 100 ml @ 5 MG/HR 5 mls/hr IV .Q24H REI Rx#:[id number] Oral 420 / 420 410 / 410 Output: Urine 1250 / 1250 200 / 200 500 / 500 Other: # Voids 1 Weight 107.5 kg Patient Weight 12/12/16 06:59 Weight 107.5 kg <Phill Nicholas - 12/11/16 11:55> CBC 12/11/16 Range/Units 04:41 WBC 16.4 H (4.5-11.0) T/MM3 RBC 4.97 (4.00-5.20) M/MM3 Hgb 14.7 (12-16) GM/DL Hct 46.6 H (36-46) % Plt Count 236 (130-400) T/MM3 Neut # Not performed Lymph # Not performed [place] # Not performed Eos # Not performed Baso # Not performed Comprehensive Metabolic Panel 12/11/16 Range/Units 04:41 Sodium 142 (134-144) MEQ/L Potassium 4.7 (3.6-5) MEQ/L Chloride 101 (98-107) MEQ/L Carbon Dioxide 33 H (22-30) MEQ/L BUN 24.0 H (7-17) MG/DL Creatinine 0.7 (0.7-1.2) MG/DL Glucose 176 H (65-110) MG/DL Calcium 10.4 H (8.4-10.2) MG/DL Intake and Output 12/10/16 12/11/16 12/11/16 22:59 06:59 14:59 Intake Total 520 / 520 5.250 / 5.250 6.5 / 6.5 Output Total 1250 / 1250 200 / 200 Balance -730 / -730 -194.750 / -194.750 6.5 / 6.5 Intake: IV 100 / 100 5.250 / 5.250 6.5 / 6.5 Rocephin 1 G In Normal 100 / 100 Saline 100 ml @ 200 mls/ hr IV Q24H REI Rx#: [id number] Cardizem IV 125 mg In 5.250 / 5.250 6.5 / 6.5 Normal Saline 100 ml @ 5 MG/HR 5 mls/hr IV .Q24H REI Rx#:[id number] Oral 420 / 420 Output: Urine 1250 / 1250 200 / 200 Other: # Voids 1 Weight 236 lb 15.951 oz Patient Weight 12/12/16 06:59 Weight 236 lb 15.951 oz Laboratory Results - last 72 hr 12/08/16 12/08/16 12/08/16 16:47 16:47 16:54 WBC 12.1 H RBC 5.01 Hgb 15.1 Hct 47.4 H MCV 94.6 MCH 30.1 MCHC 31.9 RDW Std Deviation 48.2 Plt Count 231 MPV 11.8 Immature Gran % (Auto) 0.3 Neut % (Auto) 75.8 H Lymph % (Auto) 17.8 L [place] % (Auto) 5.7 Eos % (Auto) 0.2 Baso % (Auto) 0.2 Neut # 9.2 H Lymph # 2.2 [place] # 0.7 Eos # 0.0 Baso # 0.0 Abs Immat Gran (auto) 0.04 H Neutrophils % (Manual) Band Neutrophils % Lymphocytes % (Manual) Monocytes % (Manual) Neutrophils # (Manual) Band Neutrophils # Lymphocytes # (Manual) Monocytes # (Manual) RBC Morph Comment D-Dimer VBG pH 7.380 VBG pCO2 59 H VBG pO2 72 H VBG HCO3 35 H VBG Total CO2 36.7 VBG O2 Saturation 94.0 VBG Base Excess 7.9 H O2 Delivery Method Room air Turbidity < 20 Sodium 145 H Potassium 4.4 Chloride 100 Carbon Dioxide 32 H Anion Gap 13 BUN 10.0 Creatinine 0.6 L GFR Calculation 103 BUN/Creatinine Ratio 17 Glucose 260 H Glucometer Hemoglobin A1c Calculated Osmolality 287 H Calcium 10.5 H Magnesium Total Bilirubin Icterus Index < 2 AST ALT Alkaline Phosphatase Troponin I Total Protein Albumin Globulin Albumin/Globulin Ratio TSH Specimen Hemolysis 18 Ur Collection Type Urine Color Urine Clarity Urine pH Ur Specific [place] Urine Protein Urine Glucose (UA) Urine Ketones Urine Occult Blood Urine Nitrate Urine Bilirubin Urine Urobilinogen Ur Leukocyte Esterase Urine RBC Urine WBC Urine Bacteria Ur Culture Indicated? Adenovirus (PCR) B.parapertussis DNA PCR C. pneumoniae DNA (PCR) Coronavirus OC43 (PCR) Coronavirus HKU1 (PCR) Coronavirus 229E (PCR) Coronavirus NL63 (PCR) Human Metapneumovirus Influenza Type A (PCR) Influenza Type B (PCR) M. pneumoniae (PCR) Parainfluenza 1 (PCR) Parainfluenza 2 (PCR) Parainfluenza 3 (PCR) Parainfluenza 4 (PCR) RSV (PCR) Entero/Rhino (PCR) 12/08/16 12/08/16 12/08/16 21:05 21:05 21:25 WBC RBC Hgb Hct MCV MCH MCHC RDW Std Deviation Plt Count MPV Immature Gran % (Auto) Neut % (Auto) Lymph % (Auto) [place] % (Auto) Eos % (Auto) Baso % (Auto) Neut # Lymph # [place] # Eos # Baso # Abs Immat Gran (auto) Neutrophils % (Manual) Band Neutrophils % Lymphocytes % (Manual) Monocytes % (Manual) Neutrophils # (Manual) Band Neutrophils # Lymphocytes # (Manual) Monocytes # (Manual) RBC Morph Comment D-Dimer VBG pH VBG pCO2 VBG pO2 VBG HCO3 VBG Total CO2 VBG O2 Saturation VBG Base Excess O2 Delivery Method Turbidity Sodium Potassium Chloride Carbon Dioxide Anion Gap BUN Creatinine GFR Calculation BUN/Creatinine Ratio Glucose Glucometer 299 Hemoglobin A1c Calculated Osmolality Calcium Magnesium Total Bilirubin Icterus Index AST ALT Alkaline Phosphatase Troponin I Total Protein Albumin Globulin Albumin/Globulin Ratio TSH Specimen Hemolysis Ur Collection Type Urine, clean catch Urine Color Yellow Urine Clarity Clear Urine pH 5.0 Ur Specific [place] >=1.030 H Urine Protein 2+ A Urine Glucose (UA) 3+ A Urine Ketones Negative Urine Occult Blood 1+ A Urine Nitrate Negative Urine Bilirubin Negative Urine Urobilinogen 0.2 Ur Leukocyte Esterase Negative Urine RBC 0-1 Urine WBC 0-1 Urine Bacteria Trace H Ur Culture Indicated? Cult not indicated Adenovirus (PCR) Negative B.parapertussis DNA PCR Negative C. pneumoniae DNA (PCR) Negative Coronavirus OC43 (PCR) Negative Coronavirus HKU1 (PCR) Negative Coronavirus 229E (PCR) Negative Coronavirus NL63 (PCR) Negative Human Metapneumovirus Negative Influenza Type A (PCR) Negative Influenza Type B (PCR) Negative M. pneumoniae (PCR) Negative Parainfluenza 1 (PCR) Negative Parainfluenza 2 (PCR) Negative Parainfluenza 3 (PCR) Negative Parainfluenza 4 (PCR) Negative RSV (PCR) Negative Entero/Rhino (PCR) Detected A 12/08/16 12/09/16 12/09/16 23:23 04:25 04:52 WBC 8.6 RBC 4.88 Hgb 14.3 Hct 45.9 MCV 94.1 MCH 29.3 MCHC 31.2 RDW Std Deviation 47.2 Plt Count 218 MPV 11.8 Immature Gran % (Auto) Not performed Neut % (Auto) Not performed Lymph % (Auto) Not performed [place] % (Auto) Not performed Eos % (Auto) Not performed Baso % (Auto) Not performed Neut # Not performed Lymph # Not performed [place] # Not performed Eos # Not performed Baso # Not performed Abs Immat Gran (auto) Not performed Neutrophils % (Manual) 90.0 H Band Neutrophils % 2.0 Lymphocytes % (Manual) 8.0 L Monocytes % (Manual) Neutrophils # (Manual) 7.7 Band Neutrophils # 0.2 Lymphocytes # (Manual) 0.7 L Monocytes # (Manual) RBC Morph Comment Normal D-Dimer VBG pH VBG pCO2 VBG pO2 VBG HCO3 VBG Total CO2 VBG O2 Saturation VBG Base Excess O2 Delivery Method Turbidity Sodium Potassium Chloride Carbon Dioxide Anion Gap BUN Creatinine GFR Calculation BUN/Creatinine Ratio Glucose Glucometer 289 247 Hemoglobin A1c Calculated Osmolality Calcium Magnesium Total Bilirubin Icterus Index AST ALT Alkaline Phosphatase Troponin I Total Protein Albumin Globulin Albumin/Globulin Ratio TSH Specimen Hemolysis Ur Collection Type Urine Color Urine Clarity Urine pH Ur Specific [place] Urine Protein Urine Glucose (UA) Urine Ketones Urine Occult Blood Urine Nitrate Urine Bilirubin Urine Urobilinogen Ur Leukocyte Esterase Urine RBC Urine WBC Urine Bacteria Ur Culture Indicated? Adenovirus (PCR) B.parapertussis DNA PCR C. pneumoniae DNA (PCR) Coronavirus OC43 (PCR) Coronavirus HKU1 (PCR) Coronavirus 229E (PCR) Coronavirus NL63 (PCR) Human Metapneumovirus Influenza Type A (PCR) Influenza Type B (PCR) M. pneumoniae (PCR) Parainfluenza 1 (PCR) Parainfluenza 2 (PCR) Parainfluenza 3 (PCR) Parainfluenza 4 (PCR) RSV (PCR) Entero/Rhino (PCR) 12/09/16 12/09/16 12/09/16 04:52 04:52 05:54 WBC RBC Hgb Hct MCV MCH MCHC RDW Std Deviation Plt Count MPV Immature Gran % (Auto) Neut % (Auto) Lymph % (Auto) [place] % (Auto) Eos % (Auto) Baso % (Auto) Neut # Lymph # [place] # Eos # Baso # Abs Immat Gran (auto) Neutrophils % (Manual) Band Neutrophils % Lymphocytes % (Manual) Monocytes % (Manual) Neutrophils # (Manual) Band Neutrophils # Lymphocytes # (Manual) Monocytes # (Manual) RBC Morph Comment D-Dimer VBG pH VBG pCO2 VBG pO2 VBG HCO3 VBG Total CO2 VBG O2 Saturation VBG Base Excess O2 Delivery Method Turbidity < 20 Sodium 140 Potassium 4.8 Chloride 101 Carbon Dioxide 26 Anion Gap 13 BUN 12.0 Creatinine 0.5 L GFR Calculation 128 BUN/Creatinine Ratio 24 Glucose 298 H Glucometer 285 Hemoglobin A1c 10.8 H Calculated Osmolality 280 Calcium 9.7 Magnesium Total Bilirubin 0.60 Icterus Index < 2 AST 38 H ALT 53 H Alkaline Phosphatase 124 Troponin I Total Protein 7.6 Albumin 4.4 Globulin 3.2 Albumin/Globulin Ratio 1.4 TSH 0.58 Specimen Hemolysis 65 H Ur Collection Type Urine Color Urine Clarity Urine pH Ur Specific [place] Urine Protein Urine Glucose (UA) Urine Ketones Urine Occult Blood Urine Nitrate Urine Bilirubin Urine Urobilinogen Ur Leukocyte Esterase Urine RBC Urine WBC Urine Bacteria Ur Culture Indicated? Adenovirus (PCR) B.parapertussis DNA PCR C. pneumoniae DNA (PCR) Coronavirus OC43 (PCR) Coronavirus HKU1 (PCR) Coronavirus 229E (PCR) Coronavirus NL63 (PCR) Human Metapneumovirus Influenza Type A (PCR) Influenza Type B (PCR) M. pneumoniae (PCR) Parainfluenza 1 (PCR) Parainfluenza 2 (PCR) Parainfluenza 3 (PCR) Parainfluenza 4 (PCR) RSV (PCR) Entero/Rhino (PCR) 12/09/16 12/09/16 12/09/16 09:44 14:22 19:53 WBC RBC Hgb Hct MCV MCH MCHC RDW Std Deviation Plt Count MPV Immature Gran % (Auto) Neut % (Auto) Lymph % (Auto) [place] % (Auto) Eos % (Auto) Baso % (Auto) Neut # Lymph # [place] # Eos # Baso # Abs Immat Gran (auto) Neutrophils % (Manual) Band Neutrophils % Lymphocytes % (Manual) Monocytes % (Manual) Neutrophils # (Manual) Band Neutrophils # Lymphocytes # (Manual) Monocytes # (Manual) RBC Morph Comment D-Dimer VBG pH VBG pCO2 VBG pO2 VBG HCO3 VBG Total CO2 VBG O2 Saturation VBG Base Excess O2 Delivery Method Turbidity Sodium Potassium Chloride Carbon Dioxide Anion Gap BUN Creatinine GFR Calculation BUN/Creatinine Ratio Glucose Glucometer 334 251 239 Hemoglobin A1c Calculated Osmolality Calcium Magnesium Total Bilirubin Icterus Index AST ALT Alkaline Phosphatase Troponin I Total Protein Albumin Globulin Albumin/Globulin Ratio TSH Specimen Hemolysis Ur Collection Type Urine Color Urine Clarity Urine pH Ur Specific [place] Urine Protein Urine Glucose (UA) Urine Ketones Urine Occult Blood Urine Nitrate Urine Bilirubin Urine Urobilinogen Ur Leukocyte Esterase Urine RBC Urine WBC Urine Bacteria Ur Culture Indicated? Adenovirus (PCR) B.parapertussis DNA PCR C. pneumoniae DNA (PCR) Coronavirus OC43 (PCR) Coronavirus HKU1 (PCR) Coronavirus 229E (PCR) Coronavirus NL63 (PCR) Human Metapneumovirus Influenza Type A (PCR) Influenza Type B (PCR) M. pneumoniae (PCR) Parainfluenza 1 (PCR) Parainfluenza 2 (PCR) Parainfluenza 3 (PCR) Parainfluenza 4 (PCR) RSV (PCR) Entero/Rhino (PCR) 12/10/16 12/10/16 12/10/16 05:10 05:10 06:48 WBC 14.3 H D RBC 4.53 Hgb 13.5 Hct 43.2 MCV 95.4 MCH 29.8 MCHC 31.3 RDW Std Deviation 48.2 Plt Count 209 MPV 12.1 Immature Gran % (Auto) Not performed Neut % (Auto) Not performed Lymph % (Auto) Not performed [place] % (Auto) Not performed Eos % (Auto) Not performed Baso % (Auto) Not performed Neut # Not performed Lymph # Not performed [place] # Not performed Eos # Not performed Baso # Not performed Abs Immat Gran (auto) Not performed Neutrophils % (Manual) 84.0 H Band Neutrophils % Lymphocytes % (Manual) 12.0 L Monocytes % (Manual) 4.0 Neutrophils # (Manual) 12.0 H Band Neutrophils # Lymphocytes # (Manual) 1.7 Monocytes # (Manual) 0.6 RBC Morph Comment Normal D-Dimer VBG pH VBG pCO2 VBG pO2 VBG HCO3 VBG Total CO2 VBG O2 Saturation VBG Base Excess O2 Delivery Method Turbidity < 20 Sodium 141 Potassium 5.3 H Chloride 106 Carbon Dioxide 29 Anion Gap 6 BUN 18.0 H D Creatinine 0.6 L GFR Calculation 103 BUN/Creatinine Ratio 30 H Glucose 210 H Glucometer 210 Hemoglobin A1c Calculated Osmolality 279 Calcium 9.9 Magnesium Total Bilirubin Icterus Index < 2 AST ALT Alkaline Phosphatase Troponin I Total Protein Albumin Globulin Albumin/Globulin Ratio TSH Specimen Hemolysis 46 H Ur Collection Type Urine Color Urine Clarity Urine pH Ur Specific [place] Urine Protein Urine Glucose (UA) Urine Ketones Urine Occult Blood Urine Nitrate Urine Bilirubin Urine Urobilinogen Ur Leukocyte Esterase Urine RBC Urine WBC Urine Bacteria Ur Culture Indicated? Adenovirus (PCR) B.parapertussis DNA PCR C. pneumoniae DNA (PCR) Coronavirus OC43 (PCR) Coronavirus HKU1 (PCR) Coronavirus 229E (PCR) Coronavirus NL63 (PCR) Human Metapneumovirus Influenza Type A (PCR) Influenza Type B (PCR) M. pneumoniae (PCR) Parainfluenza 1 (PCR) Parainfluenza 2 (PCR) Parainfluenza 3 (PCR) Parainfluenza 4 (PCR) RSV (PCR) Entero/Rhino (PCR) 12/10/16 12/10/16 12/10/16 10:00 11:43 14:13 WBC RBC Hgb Hct MCV MCH MCHC RDW Std Deviation Plt Count MPV Immature Gran % (Auto) Neut % (Auto) Lymph % (Auto) [place] % (Auto) Eos % (Auto) Baso % (Auto) Neut # Lymph # [place] # Eos # Baso # Abs Immat Gran (auto) Neutrophils % (Manual) Band Neutrophils % Lymphocytes % (Manual) Monocytes % (Manual) Neutrophils # (Manual) Band Neutrophils # Lymphocytes # (Manual) Monocytes # (Manual) RBC Morph Comment D-Dimer < 150 VBG pH VBG pCO2 VBG pO2 VBG HCO3 VBG Total CO2 VBG O2 Saturation VBG Base Excess O2 Delivery Method Turbidity Sodium Potassium Chloride Carbon Dioxide Anion Gap BUN Creatinine GFR Calculation BUN/Creatinine Ratio Glucose Glucometer 320 240 Hemoglobin A1c Calculated Osmolality Calcium Magnesium Total Bilirubin Icterus Index AST ALT Alkaline Phosphatase Troponin I Total Protein Albumin Globulin Albumin/Globulin Ratio TSH Specimen Hemolysis Ur Collection Type Urine Color Urine Clarity Urine pH Ur Specific [place] Urine Protein Urine Glucose (UA) Urine Ketones Urine Occult Blood Urine Nitrate Urine Bilirubin Urine Urobilinogen Ur Leukocyte Esterase Urine RBC Urine WBC Urine Bacteria Ur Culture Indicated? Adenovirus (PCR) B.parapertussis DNA PCR C. pneumoniae DNA (PCR) Coronavirus OC43 (PCR) Coronavirus HKU1 (PCR) Coronavirus 229E (PCR) Coronavirus NL63 (PCR) Human Metapneumovirus Influenza Type A (PCR) Influenza Type B (PCR) M. pneumoniae (PCR) Parainfluenza 1 (PCR) Parainfluenza 2 (PCR) Parainfluenza 3 (PCR) Parainfluenza 4 (PCR) RSV (PCR) Entero/Rhino (PCR) 12/10/16 12/11/16 12/11/16 20:47 04:41 04:41 WBC 16.4 H RBC 4.97 Hgb 14.7 Hct 46.6 H MCV 93.8 MCH 29.6 MCHC 31.5 RDW Std Deviation 47.5 Plt Count 236 MPV 11.7 Immature Gran % (Auto) Not performed Neut % (Auto) Not performed Lymph % (Auto) Not performed [place] % (Auto) Not performed Eos % (Auto) Not performed Baso % (Auto) Not performed Neut # Not performed Lymph # Not performed [place] # Not performed Eos # Not performed Baso # Not performed Abs Immat Gran (auto) Not performed Neutrophils % (Manual) 86.0 H Band Neutrophils % Lymphocytes % (Manual) 8.0 L Monocytes % (Manual) 6.0 Neutrophils # (Manual) 14.1 H Band Neutrophils # Lymphocytes # (Manual) 1.3 Monocytes # (Manual) 1.0 H RBC Morph Comment Normal D-Dimer VBG pH VBG pCO2 VBG pO2 VBG HCO3 VBG Total CO2 VBG O2 Saturation VBG Base Excess O2 Delivery Method Turbidity < 20 Sodium 142 Potassium 4.7 Chloride 101 Carbon Dioxide 33 H Anion Gap 8 BUN 24.0 H Creatinine 0.7 GFR Calculation 87 BUN/Creatinine Ratio 34 H Glucose 176 H Glucometer 205 Hemoglobin A1c Calculated Osmolality 281 H Calcium 10.4 H Magnesium Total Bilirubin Icterus Index < 2 AST ALT Alkaline Phosphatase Troponin I Total Protein Albumin Globulin Albumin/Globulin Ratio TSH Specimen Hemolysis 76 H Ur Collection Type Urine Color Urine Clarity Urine pH Ur Specific [place] Urine Protein Urine Glucose (UA) Urine Ketones Urine Occult Blood Urine Nitrate Urine Bilirubin Urine Urobilinogen Ur Leukocyte Esterase Urine RBC Urine WBC Urine Bacteria Ur Culture Indicated? Adenovirus (PCR) B.parapertussis DNA PCR C. pneumoniae DNA (PCR) Coronavirus OC43 (PCR) Coronavirus HKU1 (PCR) Coronavirus 229E (PCR) Coronavirus NL63 (PCR) Human Metapneumovirus Influenza Type A (PCR) Influenza Type B (PCR) M. pneumoniae (PCR) Parainfluenza 1 (PCR) Parainfluenza 2 (PCR) Parainfluenza 3 (PCR) Parainfluenza 4 (PCR) RSV (PCR) Entero/Rhino (PCR) 12/11/16 12/11/16 04:41 06:06 WBC RBC Hgb Hct MCV MCH MCHC RDW Std Deviation Plt Count MPV Immature Gran % (Auto) Neut % (Auto) Lymph % (Auto) [place] % (Auto) Eos % (Auto) Baso % (Auto) Neut # Lymph # [place] # Eos # Baso # Abs Immat Gran (auto) Neutrophils % (Manual) Band Neutrophils % Lymphocytes % (Manual) Monocytes % (Manual) Neutrophils # (Manual) Band Neutrophils # Lymphocytes # (Manual) Monocytes # (Manual) RBC Morph Comment D-Dimer VBG pH VBG pCO2 VBG pO2 VBG HCO3 VBG Total CO2 VBG O2 Saturation VBG Base Excess O2 Delivery Method Turbidity Sodium Potassium Chloride Carbon Dioxide Anion Gap BUN Creatinine GFR Calculation BUN/Creatinine Ratio Glucose Glucometer 168 Hemoglobin A1c Calculated Osmolality Calcium Magnesium Cancelled Total Bilirubin Icterus Index AST ALT Alkaline Phosphatase Troponin I Cancelled Total Protein Albumin Globulin Albumin/Globulin Ratio TSH Specimen Hemolysis Cancelled Ur Collection Type Urine Color Urine Clarity Urine pH Ur Specific [place] Urine Protein Urine Glucose (UA) Urine Ketones Urine Occult Blood Urine Nitrate Urine Bilirubin Urine Urobilinogen Ur Leukocyte Esterase Urine RBC Urine WBC Urine Bacteria Ur Culture Indicated? Adenovirus (PCR) B.parapertussis DNA PCR C. pneumoniae DNA (PCR) Coronavirus OC43 (PCR) Coronavirus HKU1 (PCR) Coronavirus 229E (PCR) Coronavirus NL63 (PCR) Human Metapneumovirus Influenza Type A (PCR) Influenza Type B (PCR) M. pneumoniae (PCR) Parainfluenza 1 (PCR) Parainfluenza 2 (PCR) Parainfluenza 3 (PCR) Parainfluenza 4 (PCR) RSV (PCR) Entero/Rhino (PCR) <Mary Aleman 12/11/16 09:29> - Imaging and Cardiology Echo: pending <Mary Aleman - 12/11/16 09:29> EKG results: image reviewed <Mary Aleman 12/11/16 09:29> EKG interpretations - EKG EKG shows: atrial fibrillation (RVR) <Mary Aleman - 12/11/16 09:29> - [place], pacemaker, normal Myocardial infarction: septal [place] (old age or indeterminate) (possible) < Mary Aleman 12/11/16 09:29> Assessment and Plan (1) Atrial fibrillation with rapid ventricular response Current visit: Yes Status: Acute (2) Acute respiratory failure with hypoxia Current visit: Yes Status: Acute (3) COPD exacerbation Current visit: Yes Status: Acute (4) Acute bronchitis Current visit: Yes Status: Acute (5) Essential (primary) hypertension Current visit: Yes Status: Acute (6) Type 2 diabetes mellitus without complications Current visit: Yes Status: Acute (7) Obstructive sleep apnea Current visit: Yes Status: Acute <Phill Nicholas - 12/11/16 11:55> (1) Atrial fibrillation with rapid ventricular response Current visit: Yes Status: Acute RVR: RATE 110-140S. Onest 0330 TODAY. Continue Cardizem Drip AT 15MG/HR, Add Amiodarone bolus and drip to attempt conversion. Digoxin 500mcg IV X1 for rate control. Check Mag and serial troponin. Echo pending. Increase Lovenox to 1mg/ kg SQ BID for stroke prevention. If does not convert plan DCCV tomorrow afternoon. (2) Acute respiratory failure with hypoxia Current visit: Yes Status: Acute per attending (3) COPD exacerbation Current visit: Yes Status: Acute per attending (4) Acute bronchitis Current visit: Yes Status: Acute Positive for Rhinovirus (5) Essential (primary) hypertension Current visit: Yes Status: Acute Continue home medications, may need adjustment. (6) Type 2 diabetes mellitus without complications Current visit: Yes Status: Acute per attending (7) Obstructive sleep apnea Current visit: Yes Status: Acute <Mary Aleman - 12/11/16 10:29> - Attestation Attestation Narrative: 12/11/16 11:55 Recommendation After examining the patient I agree with the above assessment. I am involved in the formulation of the patient's plan of care. <Phill Nicholas - 12/11/16 11:55> Hospital Course Summary Disclaimer: The visit summary below is not to be considered part of the above Progress Note. <Phill Nicholas - 12/11/16 11:55> The visit summary below is not to be considered part of the above Progress Note. <Mary Aleman - 12/11/16 10:31> Hospital Course: 12/08/2016 Impression Acute hypoxic respiratory failure COPD exacerbation Obstructive sleep apnea Acute bronchitis Type 2 diabetes mellitus-poorly controlled Hypertension Hypercalcemia Presyncope-possible dehydration Schizophrenia with anxiety Plan Admit as inpatient to CCU for close monitoring with COPD exacerbation and high oxygen needs. Continue breathing treatments, supplemental oxygen, and Solu- Medrol 125 mg IV every 6 hours. Rocephin 1 g IV daily start today. Repeat chest x-ray tomorrow. Sputum for Gram stain, culture and sensitivity. Viral respiratory swab. Monitor Accu-Cheks and give usual home insulin. May need supplemental insulin. Reglan as needed for nausea Lovenox and SCDs for DVT prophylaxis Continue home PPI. We'll give 1 L of IV fluids for dehydration with hypercalcemia and recheck in the morning Greater than 1 hour time spent seeing and evaluating the patient in determining care plan. 12/09/2016 Impression Acute hypoxic respiratory failure-still requiring high flow oxygen at approximately 7 L with O2 sats 88-90% COPD exacerbation-improving symptomatically Obstructive sleep apnea Acute bronchitis-rhinovirus positive Type 2 diabetes mellitus-poorly controlled Hypertension Hypercalcemia-resolved Presyncope-possible dehydration-improved but not resolved Schizophrenia with anxiety-mood and anxiety is better today Right lower extremity edema and pain, rule out DVT Plan Regarding acute hypoxic respiratory failure we'll continue breathing treatments , steroids and supplemental oxygen. Continue CPAP at night. Increase activity as tolerated Restart metformin and check hemoglobin A1c regarding diabetes. Give sliding scale insulin DC IV fluids 1 current bag is empty Continue Rocephin for now for COPD exacerbation Restart lisinopril for hypertension. Continue off hydrochlorothiazide due to the patient's lightheadedness with standing Venous Doppler of the right lower extremity to rule out DVT Repeat CBC and basic metabolic profile tomorrow Possible transfer later today if respiratory status is stable to improving 12/11/16 10:30 Cardiology RVR: RATE 110-140S. Onest 0330 TODAY. Continue Cardizem Drip AT 15MG/HR, Add Amiodarone bolus and drip to attempt conversion. Digoxin 500mcg IV X1 for rate control. Check Mag and serial troponin. Echo pending. Increase Lovenox to 1mg/kg SQ BID for stroke prevention. If does not convert plan DCCV tomorrow afternoon. <Mary Aleman - 12/11/16 10:31> Sepsis Assessment - Evaluation Sepsis screening result: Sepsis Risk <Mary Aleman - 12/11/16 09:29>
[2016-12-11] MEDS: DIGOXIN 500 MCG/2 ML INJECTION IVP SCH (09:14)
--- NOTE | 2016-12-11 09:34 | Progress Note ---
Subjective: Events of last evening are noted. The patient went into A. fib with RVR. She was given Cardizem but unfortunately heart rate did not improve significantly. Dr. Nicholas was consulted and she is being started on amiodarone drip and receiving digoxin. She was started on Lovenox therapeutic dose. Patient states she doesn't feel as well as yesterday. She continues to feel short of breath. She feels fatigued. She is coughing up yellow phlegm. She states her cough is actually better. She denies any chest pain or tightness. She denies any nausea or vomiting. Appetite has been good. She is urinating without difficulties. Objective Vital signs: Temperature 97.1 F 12/11/16 07:15 Pulse Rate 120 H 12/11/16 09:14 Respiratory Rate 30 H 12/11/16 08:00 Blood Pressure 156/110 H 12/11/16 07:15 Pulse Oximetry 94 12/11/16 08:00 Oxygen Delivery Method Nasal Cannula Oxygen Flow Rate 6 Weight: 107.5 kg Comments: Cumulative I&O is + 658 GEN-alert, oriented, no acute distress NECK-supple CV-tachycardic rate with irregular rhythm, telemetry shows A. fib with heart rate in the 120s CHEST-end expiratory wheezes bilaterally ABD-soft, nontender, nondistended with positive bowel sounds -no Macias EXT-trace edema, SCDs are on NEURO-no focal deficits SKIN-warm and dry and without rashes Psychiatric-patient appears calm Results - Labs CBC & Chem 7: 12/11/16 04:41 12/11/16 04:41 Labs: D-dimer yesterday less than 150 Calcium is elevated at 10.4, specimen is hemolyzed Microbiology Results: Microbiology 12/08/16 21:05 Sputum, Expectorated Gram Stain - Final 12/08/16 21:05 Sputum, Expectorated Sputum Culture - Final Normal Respiratory Vickie Assessment and Plan Assessment and Plan: 12/11/2016 Impression A. fib with RVR Acute hypoxic respiratory failure-still requiring high flow oxygen at approximately 7.5 L with O2 sats 88-90% COPD exacerbation- Obstructive sleep apnea-chronically on CPAP with 2 L of oxygen at night Acute bronchitis-rhinovirus positive Type 2 diabetes mellitus-poorly controlled Hypertension Dehydration -resolved Hypercalcemia-mild Presyncope-improving Schizophrenia with anxiety-doing okay Right lower extremity elurn-mueqctnr-bwdqfp Doppler yesterday negative for DVT Plan Dr. Nicholas was consulted regarding A. fib with RVR. Amiodarone drip is being started. The patient was placed on full dose Lovenox. Serial cardiac enzymes have been ordered. Albuterol discontinued and Xopenex started Decrease IV steroids. Continue Acapella. Appreciate Dr. Mcmahan's consult. Echocardiogram pending CBC and basic metabolic profile tomorrow. Sepsis Assessment - Evaluation Sepsis screening result: Sepsis Risk Hospital Course Summary Disclaimer: The visit summary below is not to be considered part of the above Progress Note. Hospital Course: 12/08/2016 Impression Acute hypoxic respiratory failure COPD exacerbation Obstructive sleep apnea Acute bronchitis Type 2 diabetes mellitus-poorly controlled Hypertension Hypercalcemia Presyncope-possible dehydration Schizophrenia with anxiety Plan Admit as inpatient to CCU for close monitoring with COPD exacerbation and high oxygen needs. Continue breathing treatments, supplemental oxygen, and Solu- Medrol 125 mg IV every 6 hours. Rocephin 1 g IV daily start today. Repeat chest x-ray tomorrow. Sputum for Gram stain, culture and sensitivity. Viral respiratory swab. Monitor Accu-Cheks and give usual home insulin. May need supplemental insulin. Reglan as needed for nausea Lovenox and SCDs for DVT prophylaxis Continue home PPI. We'll give 1 L of IV fluids for dehydration with hypercalcemia and recheck in the morning Greater than 1 hour time spent seeing and evaluating the patient in determining care plan. 12/09/2016 Impression Acute hypoxic respiratory failure-still requiring high flow oxygen at approximately 7 L with O2 sats 88-90% COPD exacerbation-improving symptomatically Obstructive sleep apnea Acute bronchitis-rhinovirus positive Type 2 diabetes mellitus-poorly controlled Hypertension Hypercalcemia-resolved Presyncope-possible dehydration-improved but not resolved Schizophrenia with anxiety-mood and anxiety is better today Right lower extremity edema and pain, rule out DVT Plan Regarding acute hypoxic respiratory failure we'll continue breathing treatments , steroids and supplemental oxygen. Continue CPAP at night. Increase activity as tolerated Restart metformin and check hemoglobin A1c regarding diabetes. Give sliding scale insulin DC IV fluids 1 current bag is empty Continue Rocephin for now for COPD exacerbation Restart lisinopril for hypertension. Continue off hydrochlorothiazide due to the patient's lightheadedness with standing Venous Doppler of the right lower extremity to rule out DVT Repeat CBC and basic metabolic profile tomorrow Possible transfer later today if respiratory status is stable to improving 12/10/2016 Impression Acute hypoxic respiratory failure-still requiring high flow oxygen at approximately 7.5 L with O2 sats 88-90% COPD exacerbation- Obstructive sleep apnea-chronically on CPAP with 2 L of oxygen at night Acute bronchitis-rhinovirus positive Type 2 diabetes mellitus-poorly controlled Hypertension Dehydration -resolved Hypercalcemia-resolved Presyncope-improving Schizophrenia with anxiety-doing okay Right lower extremity edema-improved today-venous Doppler yesterday negative for DVT Mildly elevated potassium is likely a false reading with hemolyzed blood specimen Plan Continue steroids, oxygen, breathing treatments. Rocephin for COPD exacerbation. Patient is rhinovirus positive. Consider pulmonology consult since oxygenation is not improving. Continue current treatment for diabetes. But sugars improved after restarting metformin. Check chest x-ray today. Add guaifenesin and Tessalon Perles cough Encourage by mouth fluids CBC and basic metabolic profile tomorrow 12/10/16 10:07 12/10/16 10:07 12/11/16 09:36
[2016-12-11] MEDS: ENOXAPARIN 120 MG/0.8 ML INJECTION SQ SCH ×2 (10:23→21:13)
[2016-12-11] MEDS: INSULIN ASPART 100unit/ml INJECTION SQ PRN (10:47)
[2016-12-11] MEDS: Ipratropium Inh NEB 0.02% (0.5mg/2.5ml) AEROSOL SCH ×4 (11:35→19:48)
--- NOTE | 2016-12-11 15:27 | Echocardiogram ---
DATE OF PROCEDURE December 11, 2016 DESCRIPTION OF PROCEDURE This is a two-dimensional echo with spectral Doppler, color-flow and M-mode. It was obtained in a patient with atrial fibrillation. Left atrial dimension is normal. Left ventricle end-diastolic dimension is normal. Left ventricle wall thickness is normal. LV systolic function is normal with ejection fraction of 75%. Right atrium is normal. Right ventricle is normal. Aortic root dimension is normal. Mitral annulus is calcified. Mitral valve leaflets are normal with trace of mitral regurgitation. Aortic valve appears to be normal. Tricuspid valve shows trace of tricuspid regurgitation with mild pulmonary hypertension with estimated pulmonary artery systolic pressure of 33. Pulmonary valve shows no pulmonary insufficiency. There is no pericardial effusion. IMPRESSION 1. Normal LV systolic function with ejection fraction of 75%. 2. Technically difficult study. 3. Mitral annulus calcification with trace of mitral regurgitation. 4. Trace of tricuspid regurgitation with estimated pulmonary artery systolic pressure of 33. MTDD
[2016-12-11] MEDS ORDERED: LISINOPRIL 5 MG TABLET PO ONE (15:38)
[2016-12-11] MEDS: FLECAINIDE 50 MG TABLET PO SCH ×2 (16:03→21:09)
[2016-12-11] MEDS: SALINE FLUSH 10ml SYRINGE IVF PRN (16:03)
[2016-12-11] MEDS: CEFTRIAXONE 1 G in NS 100 ML IV SCH (19:37)
[2016-12-11] MEDS: ATORVASTATIN 20 MG TABLET PO SCH (21:09)
[2016-12-11] MEDS: INSULIN GLARGINE 100unit/ml INJECTION SQ SCH (21:12)
[2016-12-12] MEDS: Ipratropium Inh NEB 0.02% (0.5mg/2.5ml) AEROSOL SCH ×7 (00:35→23:38)
[2016-12-12] MEDS: OMEPRAZOLE 20 MG CAPSULE PO SCH (07:10)
[2016-12-12] MEDS: INSULIN ASPART 100unit/ml INJECTION SQ SCH ×3 (08:02→17:22)
[2016-12-12] MEDS: ENOXAPARIN 120 MG/0.8 ML INJECTION SQ SCH (08:05)
[2016-12-12] MEDS: ARIPiprazole 15 MG TABLET PO SCH (08:06)
[2016-12-12] MEDS: METHYLPREDNISOLONE SOD SUCC 125mg/2ml INJECTION IVP SCH ×2 (08:07→21:20)
[2016-12-12] MEDS: BENZONATATE 100 MG CAPSULE PO SCH ×3 (08:07→21:22)
[2016-12-12] MEDS: GABAPENTIN 300 MG CAPSULE PO SCH ×3 (08:07→21:22)
[2016-12-12] MEDS: FLECAINIDE 50 MG TABLET PO SCH ×2 (08:08→21:22)
[2016-12-12] MEDS: DULOXETINE 60 MG CAPSULE PO SCH (08:08)
[2016-12-12] MEDS: METFORMIN 1,000 MG TABLET PO SCH ×2 (08:08→17:22)
[2016-12-12] MEDS: GUAIFENESIN LA 600 MG TABLET PO SCH ×2 (08:09→21:22)
[2016-12-12] MEDS: SALINE FLUSH 10ml SYRINGE IVF PRN (08:12)
[2016-12-12] MEDS ORDERED: LISINOPRIL 10 MG TABLET PO SCH (09:00)
[2016-12-12] MEDS: INSULIN ASPART 100unit/ml INJECTION SQ PRN (10:34)
--- NOTE | 2016-12-12 10:59 | Progress Note ---
Subjective: Pt is sitting up in chair without complaints. Continues to have a dry cough. She complains of tremors which she has had previously- may be med related. No headaches, no sore throat, no nausea, no vomiting, no diarrhea. Denies chest pain or palpitations. Since she converted to NSR, no plans for cardioversion today. No problem urinating. Objective Vital signs: Temperature 98.4 F 12/11/16 22:00 Pulse Rate 83 12/12/16 08:07 Respiratory Rate 33 H 12/12/16 08:07 Blood Pressure 172/101 H 12/12/16 08:07 Pulse Oximetry 91 12/12/16 08:07 Oxygen Delivery Method nc Oxygen Flow Rate 5 Weight: 241 lb 10.026 oz - Constitutional Present: no acute distress, morbidly obese - Routine HEENT Exam Head: Present: normocephalic, atraumatic Eye: Present: EOMI, conjunctivae pink ENT: Present: mucous membranes dry - Routine Respiratory Exam Present: wheezes, distant breath sounds - Routine Cardiovascular Exam Present: RRR - Routine Abdominal Exam Present: soft, normoactive bowel sounds, non distended, non tender - Routine Extremities Exam Present: edema, pulses intact, vascular access (l upper extremity midline, l wrist hep lock) - Routine Skin Exam Absent: rash - Routine Neurological Exam Present: alert, oriented X3, normal speech - Routine Psychiatric Exam Present: normal affect, cooperative Results - Labs CBC & Chem 7: 12/12/16 03:59 12/12/16 03:59 Labs: Laboratory Tests 12/12/16 03:59 Neutrophils % (Manual) 96.0 H Lymphocytes % (Manual) 1.0 L Monocytes % (Manual) 3.0 Neutrophils # (Manual) 12.2 H Lymphocytes # (Manual) 0.1 L Monocytes # (Manual) 0.4 Microbiology Results: Microbiology 12/08/16 21:05 Sputum, Expectorated Gram Stain - Final 12/08/16 21:05 Sputum, Expectorated Sputum Culture - Final Normal Respiratory Vickie Assessment and Plan Assessment and Plan: 12/12/2016 Nadiya Ojeda A. fib with RVR responded to therapy- now on flecanide and therapeutic enoxaparin Acute hypoxic respiratory failure-now decreased from high flow oxygen at approximately 7.5 L to 5 L with O2 sats 88-90% COPD exacerbation- Obstructive sleep apnea-chronically on CPAP with 2 L of oxygen at night Acute bronchitis-rhinovirus positive Type 2 diabetes mellitus-poorly controlled now on IV methylprednisolone Hypertension Dehydration -resolved Hypercalcemia-mild Presyncope-improved Schizophrenia with anxiety-doing okay Right lower extremity zulqk-parpqwsv-ayihwh Doppler yesterday negative for DVT Plan Dr. Nicholas was consulted regarding A. fib with RVR. Albuterol discontinued and Xopenex started, Dr. Andersen seeing patient-? taper steroids Continue Acapella. Appreciate Dr. Andersen's consult. Echocardiogram pending Will transfer to floor on telemetry Discontinue Ceftriaxone When prednisone is tapered, consider Tdap, pneumovac 13 and 23 Sepsis Assessment - Evaluation Sepsis screening result: No Definite Risk Hospital Course Summary Disclaimer: The visit summary below is not to be considered part of the above Progress Note. Hospital Course: 12/08/2016 Impression Acute hypoxic respiratory failure COPD exacerbation Obstructive sleep apnea Acute bronchitis Type 2 diabetes mellitus-poorly controlled Hypertension Hypercalcemia Presyncope-possible dehydration Schizophrenia with anxiety Plan Admit as inpatient to CCU for close monitoring with COPD exacerbation and high oxygen needs. Continue breathing treatments, supplemental oxygen, and Solu- Medrol 125 mg IV every 6 hours. Rocephin 1 g IV daily start today. Repeat chest x-ray tomorrow. Sputum for Gram stain, culture and sensitivity. Viral respiratory swab. Monitor Accu-Cheks and give usual home insulin. May need supplemental insulin. Reglan as needed for nausea Lovenox and SCDs for DVT prophylaxis Continue home PPI. We'll give 1 L of IV fluids for dehydration with hypercalcemia and recheck in the morning Greater than 1 hour time spent seeing and evaluating the patient in determining care plan. 12/09/2016 Impression Acute hypoxic respiratory failure-still requiring high flow oxygen at approximately 7 L with O2 sats 88-90% COPD exacerbation-improving symptomatically Obstructive sleep apnea Acute bronchitis-rhinovirus positive Type 2 diabetes mellitus-poorly controlled Hypertension Hypercalcemia-resolved Presyncope-possible dehydration-improved but not resolved Schizophrenia with anxiety-mood and anxiety is better today Right lower extremity edema and pain, rule out DVT Plan Regarding acute hypoxic respiratory failure we'll continue breathing treatments , steroids and supplemental oxygen. Continue CPAP at night. Increase activity as tolerated Restart metformin and check hemoglobin A1c regarding diabetes. Give sliding scale insulin DC IV fluids 1 current bag is empty Continue Rocephin for now for COPD exacerbation Restart lisinopril for hypertension. Continue off hydrochlorothiazide due to the patient's lightheadedness with standing Venous Doppler of the right lower extremity to rule out DVT Repeat CBC and basic metabolic profile tomorrow Possible transfer later today if respiratory status is stable to improving 12/11/16 10:30 Cardiology RVR: RATE 110-140S. Onest 0330 TODAY. Continue Cardizem Drip AT 15MG/HR, Add Amiodarone bolus and drip to attempt conversion. Digoxin 500mcg IV X1 for rate control. Check Mag and serial troponin. Echo pending. Increase Lovenox to 1mg/kg SQ BID for stroke prevention. If does not convert plan DCCV tomorrow afternoon. 12/11/2016 Impression A. fib with RVR Acute hypoxic respiratory failure-still requiring high flow oxygen at approximately 7.5 L with O2 sats 88-90% COPD exacerbation- Obstructive sleep apnea-chronically on CPAP with 2 L of oxygen at night Acute bronchitis-rhinovirus positive Type 2 diabetes mellitus-poorly controlled Hypertension Dehydration -resolved Hypercalcemia-mild Presyncope-improving Schizophrenia with anxiety-doing okay Right lower extremity mgyln-ooxxjdrq-migiwk Doppler yesterday negative for DVT Plan Dr. Nicholas was consulted regarding A. fib with RVR. Amiodarone drip is being started. The patient was placed on full dose Lovenox. Serial cardiac enzymes have been ordered. Albuterol discontinued and Xopenex started Decrease IV steroids. Continue Acapella. Appreciate Dr. Mcmahan's consult. Echocardiogram pending CBC and basic metabolic profile tomorrow.
[2016-12-12] MEDS: RIVAROXABAN 20 MG TABLET PO SCH (17:22)
--- NOTE | 2016-12-12 19:29 | Cardiology Progress Note ---
Subjective Principal diagnosis: COPD <Giana Velazquez 12/12/16 23:35> Interval history: <Giana Velazquez 12/13/16 17:42> Exam Vital signs: Temperature 96.2 F L 12/17/16 07:45 Pulse Rate 80 12/17/16 08:00 Respiratory Rate 16 12/17/16 07:50 Blood Pressure 130/69 12/17/16 07:45 Pulse Oximetry 94 12/17/16 07:50 Oxygen Delivery Method Nasal Cannula Oxygen Flow Rate 1 <Phill Nicholas - 12/17/16 09:39> Temperature 96.8 F 12/12/16 15:48 Pulse Rate 88 12/12/16 16:00 Respiratory Rate 20 12/12/16 15:48 Blood Pressure 175/105 H 12/12/16 15:48 Pulse Oximetry 90 12/12/16 15:48 Oxygen Delivery Method Nasal Cannula Oxygen Flow Rate 5 <Giana Velazquez 12/12/16 23:29> Narrative: Patient states she is doing much better today. States breathing improved with increased O2. Noted decreased edema, none noted to LE today. Denies any CP, palpitations, SOA, diaphoresis, N/V today. Remains NSR on tele and transferring to floor soon. <Giana Velazquez 12/12/16 23:29> - Constitutional no acute distress, cooperative <Giana Velazquez 12/12/16 19:30> - Routine HEENT Exam Head: Present: normocephalic, scalp tenderness <Giana Velazquez 12/12/16 19:30 > ENT: Present: mucous membranes moist <Giana Velazquez 12/12/16 19:30> - Routine Neck Exam Absent: JVD, carotid bruit, lymphadenopathy <Giana Velazquez 12/12/16 19:30> - Routine Respiratory Exam Present: dyspnea, decreased breath sounds, crackles <Giana Velazquez 12/12/16 19:30> - Routine Cardiovascular Exam Present: RRR. Absent: murmur, no murmur, JVD <Giana Velazquez 12/12/16 19:30> - Routine Extremities Exam Present: edema, pulses intact <Giana Velazquez 12/12/16 19:30> - Routine Back/Spine/Pelvis Exam Back/Spine: Present: full ROM. Absent: erythema <Giana Velazquez 12/12/16 19: 30> - Routine Skin Exam Present: intact, dry, warm. Absent: erythema, wounds, rash <Giana Velazquez 12/12/16 19:30> - Routine Neurological Exam Present: alert, oriented X3, normal speech <Giana Velazquez 12/12/16 19:30> - Routine Psychiatric Exam Present: normal affect, normal thought process, cooperative <Giana Velazquez 12/12/16 19:30> Progress Note-A&P (1) Atrial fibrillation with rapid ventricular response Status: Acute Current Visit: Yes (2) Acute respiratory failure with hypoxia Status: Resolved Current Visit: Yes (3) COPD exacerbation Status: Acute Current Visit: Yes (4) Acute bronchitis Status: Resolved Current Visit: Yes (5) Essential (primary) hypertension Status: Chronic Current Visit: Yes (6) Type 2 diabetes mellitus without complications Status: Deleted Current Visit: Yes (7) Obstructive sleep apnea Status: Chronic Current Visit: Yes <Phill Nicholas 12/17/16 09:39> (1) Atrial fibrillation with rapid ventricular response Status: Acute Current Visit: Yes (2) Acute respiratory failure with hypoxia Status: Acute Current Visit: Yes (3) COPD exacerbation Status: Acute Current Visit: Yes (4) Acute bronchitis Status: Acute Current Visit: Yes (5) Essential (primary) hypertension Status: Chronic Current Visit: Yes (6) Type 2 diabetes mellitus without complications Status: Chronic Current Visit: Yes (7) Obstructive sleep apnea Status: Chronic Current Visit: Yes <Giana Velazquez 12/16/16 09:51> - Time Spent With Patient Total time spent is greater than 50% in coordination of care (as documented) at patient's floor/unit and/or counseling patient: <Phill Nicholas 12/17/16 09:39> Total time spent is greater than 50% in coordination of care (as documented) at patient's floor/unit and/or counseling patient: <Giana Velazquez 12/12/16 19:30> less than 15 minutes <Giana Velazquez 12/16/16 09:52> - Attestation Attestation Narrative: Recommendation After examining the patient I agree with the above assessment. I am involved in the formulation of the patient's plan of care. <Phill Nicholas - 12/17/16 09:39> Sepsis Assessment - Evaluation Sepsis screening result: No Definite Risk <Giana Velazquez - 12/12/16 19:30> Hospital Course Summary Disclaimer: The visit summary below is not to be considered part of the above Progress Note. <Phill Nicholas - 12/17/16 09:39>
[2016-12-12] MEDS: INSULIN GLARGINE 100unit/ml INJECTION SQ SCH (21:21)
[2016-12-12] MEDS: ATORVASTATIN 20 MG TABLET PO SCH (21:22)
[2016-12-13] MEDS: Ipratropium Inh NEB 0.02% (0.5mg/2.5ml) AEROSOL SCH ×6 (03:23→23:30)
[2016-12-13] MEDS: HYDROCODONE/APAP 5mg/325mg TABLET PO PRN (05:24)
[2016-12-13] MEDS: OMEPRAZOLE 20 MG CAPSULE PO SCH (05:32)
[2016-12-13] MEDS: INSULIN ASPART 100unit/ml INJECTION SQ SCH ×3 (08:59→18:11)
[2016-12-13] MEDS ORDERED: HYDRALAZINE 20 MG/ML INJECTION IVP PRN (08:59)
[2016-12-13] MEDS: METFORMIN 1,000 MG TABLET PO SCH ×2 (09:01→18:13)
[2016-12-13] MEDS: ARIPiprazole 15 MG TABLET PO SCH (09:02)
[2016-12-13] MEDS: DULOXETINE 60 MG CAPSULE PO SCH (09:02)
[2016-12-13] MEDS: GUAIFENESIN LA 600 MG TABLET PO SCH ×2 (09:03→21:47)
[2016-12-13] MEDS: GABAPENTIN 300 MG CAPSULE PO SCH ×3 (09:03→21:47)
[2016-12-13] MEDS: LISINOPRIL 20 MG TABLET PO SCH (09:04)
[2016-12-13] MEDS: METHYLPREDNISOLONE SOD SUCC 125mg/2ml INJECTION IVP SCH (09:05)
[2016-12-13] MEDS: BENZONATATE 100 MG CAPSULE PO SCH ×3 (09:06→21:47)
[2016-12-13] MEDS: FLECAINIDE 50 MG TABLET PO SCH ×2 (09:06→21:47)
--- NOTE | 2016-12-13 16:28 | Cardiology Progress Note ---
Subjective Principal diagnosis: COPD <Giana Velazquez 12/13/16 16:35> Interval history: <Giana Velazquez 12/13/16 16:35> Exam Vital signs: Temperature 96.2 F L 12/17/16 07:45 Pulse Rate 80 12/17/16 08:00 Respiratory Rate 16 12/17/16 07:50 Blood Pressure 130/69 12/17/16 07:45 Pulse Oximetry 94 12/17/16 07:50 Oxygen Delivery Method Nasal Cannula Oxygen Flow Rate 1 <Phill Nicholas - 12/17/16 09:42> Temperature 97.7 F 12/13/16 11:39 Pulse Rate 74 12/13/16 12:00 Respiratory Rate 22 12/13/16 14:41 Blood Pressure 153/84 H 12/13/16 14:08 Pulse Oximetry 94 12/13/16 14:41 Oxygen Delivery Method Nasal Cannula Oxygen Flow Rate 4 <Giana Velazquez 12/13/16 16:35> Narrative: Pt states she con'ts to feel better today. Disccussed taking a shower without her O2 later today. Notified her she should keep her O2 on and that she can still shower with her O2. Discussed her BP and that meds increased that will start today. Con'ts to deny any CP, palpitations, N/V, diaphoresis, increased SOA, light-head/dizziness. <Giana Velazquez 12/13/16 16:35> - Constitutional no acute distress, obese, cooperative <Giana Velazquez 12/13/16 16:35> - Routine HEENT Exam Head: Present: normocephalic <Giana Velazquez 12/13/16 16:35> Eye: Present: EOMI <Giana Velazquez 12/13/16 16:35> ENT: Present: mucous membranes moist <Giana Velazquez 12/13/16 16:35> - Routine Neck Exam Absent: JVD, carotid bruit, lymphadenopathy <Giana Velazquez 12/13/16 16:35> - Routine Respiratory Exam Present: dyspnea, decreased breath sounds, wheezes, crackles <Giana Velazquez 12/13/16 16:35> - Routine Cardiovascular Exam Present: RRR. Absent: murmur, gallop, rubs, JVD <Giana Velazquez 12/13/16 16: 35> - Routine Abdominal Exam Present: soft, normoactive bowel sounds, non tender. Absent: distended <Giana Velazquez 12/13/16 16:35> - Routine Extremities Exam Present: edema, pulses intact <Giana Velazquez 12/13/16 16:35> - Routine Skin Exam Present: intact, dry, warm. Absent: wounds, rash <EctGiana moon 12/13/16 16 :35> - Routine Neurological Exam Present: alert, oriented X3 <EctGiana moon 12/13/16 16:35> - Routine Psychiatric Exam Present: normal affect, normal thought process, cooperative <Giana Velazquez 12/13/16 16:35> Progress Note-A&P (1) Atrial fibrillation with rapid ventricular response Status: Acute Current Visit: Yes (2) Acute respiratory failure with hypoxia Status: Resolved Current Visit: Yes (3) COPD exacerbation Status: Acute Current Visit: Yes (4) Acute bronchitis Status: Resolved Current Visit: Yes (5) Essential (primary) hypertension Status: Chronic Current Visit: Yes (6) Type 2 diabetes mellitus without complications Status: Deleted Current Visit: Yes (7) Obstructive sleep apnea Status: Chronic Current Visit: Yes <Phill Nicholas 12/17/16 09:42> (1) Atrial fibrillation with rapid ventricular response Status: Acute Current Visit: Yes (2) Acute respiratory failure with hypoxia Status: Acute Current Visit: Yes (3) COPD exacerbation Status: Acute Current Visit: Yes (4) Acute bronchitis Status: Acute Current Visit: Yes (5) Essential (primary) hypertension Status: Chronic Current Visit: Yes (6) Type 2 diabetes mellitus without complications Status: Chronic Current Visit: Yes (7) Obstructive sleep apnea Status: Chronic Current Visit: Yes <Giana Velazquez 12/16/16 09:52> - Time Spent With Patient Total time spent is greater than 50% in coordination of care (as documented) at patient's floor/unit and/or counseling patient: <Phill Nicholas 12/17/16 09:42> Total time spent is greater than 50% in coordination of care (as documented) at patient's floor/unit and/or counseling patient: <Giana Velazquez 12/13/16 16:35> less than 15 minutes <Giana Velazquez 12/16/16 09:52> - Attestation Attestation Narrative: Recommendation After examining the patient I agree with the above assessment. I am involved in the formulation of the patient's plan of care. <Phill Nicholas - 12/17/16 09:42> Sepsis Assessment - Evaluation Sepsis screening result: No Definite Risk <Giana Velazquez 12/13/16 16:35> Hospital Course Summary Disclaimer: The visit summary below is not to be considered part of the above Progress Note. <Phill Nicholas - 12/17/16 09:42>
--- NOTE | 2016-12-13 17:19 | Progress Note ---
Subjective: The patient was seen at 1430. The patient reports doing well and slept well during the night. Denies fevers , chills, sweats. Denies sore throat, shortness of breath, dyspnea on exertion , she does have a nonproductive cough for which she's been taking Tessalon Perles with good response. She denies chest pain. Denies nausea, vomiting, diarrhea or constipation. Is urinating without difficulty, denies dysuria. Objective Vital signs: Temperature 97.1 F 12/13/16 17:05 Pulse Rate 96 12/13/16 17:05 Respiratory Rate 20 12/13/16 17:05 Blood Pressure 158/77 H 12/13/16 17:05 Pulse Oximetry 92 12/13/16 17:05 Oxygen Delivery Method Nasal Cannula Oxygen Flow Rate 4 Selected Entries 12/08/16 16:05 12/08/16 19:15 12/12/16 12:00 Weight 235 lb 210 lb 12.191 oz Temperature Blood Pressure 164/84 H Pulse Oximetry Oxygen Delivery Method Oxygen Flow Rate 12/12/16 12:43 12/12/16 12:45 12/12/16 15:48 Weight 246 lb 0.574 oz Temperature Blood Pressure 186/91 H 175/105 H Pulse Oximetry Oxygen Delivery Method Oxygen Flow Rate 12/12/16 20:00 12/13/16 00:00 12/13/16 05:08 Weight Temperature 97.3 F Blood Pressure 171/97 H 162/97 H 187/101 H Pulse Oximetry Oxygen Delivery Method Oxygen Flow Rate 5 12/13/16 05:43 12/13/16 08:00 12/13/16 08:04 Weight 248 lb 3.848 oz Temperature 97.3 F Blood Pressure 175/100 H 193/120 H Pulse Oximetry Oxygen Delivery Method Oxygen Flow Rate 5 12/13/16 08:31 12/13/16 11:00 12/13/16 11:39 Weight Temperature Blood Pressure 162/102 H 149/105 H Pulse Oximetry 93 91 Oxygen Delivery Method Nasal Cannula Oxygen Flow Rate 4 12/13/16 14:08 12/13/16 14:41 12/13/16 17:05 Weight Temperature Blood Pressure 153/84 H Pulse Oximetry 94 92 Oxygen Delivery Method Oxygen Flow Rate 4 4 Laboratory Tests 12/08/16 12/09/16 12/10/16 16:47 04:52 05:10 WBC Hgb Hct Plt Count Glucose 260 H 298 H 210 H Glucometer 12/11/16 12/11/16 12/11/16 04:41 06:06 10:42 WBC Hgb Hct Plt Count Glucose 176 H Glucometer 168 189 12/11/16 12/11/16 12/12/16 14:15 20:28 03:59 WBC Hgb Hct Plt Count Glucose 187 H Glucometer 106 192 12/12/16 12/12/16 12/12/16 06:06 10:19 15:47 WBC Hgb Hct Plt Count Glucose Glucometer 172 247 135 12/12/16 12/13/16 12/13/16 20:19 05:03 05:03 WBC 14.8 H Hgb 14.6 Hct 46.4 H Plt Count 235 Glucose 75 Glucometer 113 12/13/16 12/13/16 12/13/16 05:27 10:46 13:59 WBC Hgb Hct Plt Count Glucose Glucometer 75 89 72 Weight: 248 lb 3.848 oz - Additional findings Additional findings: In general, the patient is alert and oriented 3 cooperative with exam and in no respiratory distress she remains on 4 L nasal cannula. She has her CPAP beside her which she uses at night HEENT head is atraumatic,normocephalic, no conjunctival petechiae, no oral thrush, mucous membranes are moist and pink Lungs decreased without wheezes or crackles CV regular rate and rhythm without murmur she is on telemetry Abdomen is soft, bowel sounds are present,there is no guarding or rebound Extremities no clubbing, no cyanosis, no edema, no sign of rash Neuro patient is alert IV access left antecubital midline Results - Labs CBC & Chem 7: 12/13/16 05:03 12/13/16 05:03 Microbiology Results: Microbiology 12/08/16 21:05 Sputum, Expectorated Gram Stain - Final 12/08/16 21:05 Sputum, Expectorated Sputum Culture - Final Normal Respiratory Vickie - Impressions Echocardiogram was performed on 12/11/2016 Impression Normal LV systolic function with ejection fraction of 75%, technically difficult study, mitral annulus calcification with trace of mitral regurgitation , trace of tricuspid regurgitation with estimated pulmonary artery systolic pressure of 33 Assessment and Plan Assessment and Plan: 12/12/2016 Nadiya Impression A. fib with RVR responded to therapy- now on flecanide and switched to xarelto Acute hypoxic respiratory failure-now decreased from high flow oxygen at approximately 7.5 L to 4 L with O2 sats 88-90% COPD exacerbation- Obstructive sleep apnea-chronically on CPAP with 2 L of oxygen at night Acute bronchitis-rhinovirus positive Type 2 diabetes mellitus-poorly controlled now on IV methylprednisolone 62.5 mg IV every 12 hours Hypertension Dehydration -resolved Hypercalcemia-mild Presyncope-improved Schizophrenia with anxiety-doing okay Right lower extremity [id number] Doppler negative for DVT Plan Dr. Nicholas is managing her blood pressure and A. fib with RVR. Albuterol discontinued and Xopenex started, discussed with Dr. Andersen. We will start a prednisone taper in the morning on his recommendation we'll do 40 mg by mouth daily for 3 days then 30 mg by mouth daily for 3 days, then 20 mg by mouth daily for 3 days then 10 mg by mouth daily for 3 days. Please note a quick glance at the margin does not show this information Continue Acapella. Echocardiogram results included Dr. Valdes has resumed her blood pressure medications and is making further adjustments her diastolic was up to 110. The nurse has changed to a larger cuff for more reliable reading. Will monitor blood sugars closely the patient has been very insulin resistant in the past When prednisone is tapered, consider Tdap, pneumovac 13 and 23 Sepsis Assessment - Evaluation Sepsis screening result: No Definite Risk Hospital Course Summary Disclaimer: The visit summary below is not to be considered part of the above Progress Note. Hospital Course: 12/08/2016 Impression Acute hypoxic respiratory failure COPD exacerbation Obstructive sleep apnea Acute bronchitis Type 2 diabetes mellitus-poorly controlled Hypertension Hypercalcemia Presyncope-possible dehydration Schizophrenia with anxiety Plan Admit as inpatient to CCU for close monitoring with COPD exacerbation and high oxygen needs. Continue breathing treatments, supplemental oxygen, and Solu- Medrol 125 mg IV every 6 hours. Rocephin 1 g IV daily start today. Repeat chest x-ray tomorrow. Sputum for Gram stain, culture and sensitivity. Viral respiratory swab. Monitor Accu-Cheks and give usual home insulin. May need supplemental insulin. Reglan as needed for nausea Lovenox and SCDs for DVT prophylaxis Continue home PPI. We'll give 1 L of IV fluids for dehydration with hypercalcemia and recheck in the morning Greater than 1 hour time spent seeing and evaluating the patient in determining care plan. 12/09/2016 Impression Acute hypoxic respiratory failure-still requiring high flow oxygen at approximately 7 L with O2 sats 88-90% COPD exacerbation-improving symptomatically Obstructive sleep apnea Acute bronchitis-rhinovirus positive Type 2 diabetes mellitus-poorly controlled Hypertension Hypercalcemia-resolved Presyncope-possible dehydration-improved but not resolved Schizophrenia with anxiety-mood and anxiety is better today Right lower extremity edema and pain, rule out DVT Plan Regarding acute hypoxic respiratory failure we'll continue breathing treatments , steroids and supplemental oxygen. Continue CPAP at night. Increase activity as tolerated Restart metformin and check hemoglobin A1c regarding diabetes. Give sliding scale insulin DC IV fluids 1 current bag is empty Continue Rocephin for now for COPD exacerbation Restart lisinopril for hypertension. Continue off hydrochlorothiazide due to the patient's lightheadedness with standing Venous Doppler of the right lower extremity to rule out DVT Repeat CBC and basic metabolic profile tomorrow Possible transfer later today if respiratory status is stable to improving 12/11/16 10:30 Cardiology RVR: RATE 110-140S. Onest 0330 TODAY. Continue Cardizem Drip AT 15MG/HR, Add Amiodarone bolus and drip to attempt conversion. Digoxin 500mcg IV X1 for rate control. Check Mag and serial troponin. Echo pending. Increase Lovenox to 1mg/kg SQ BID for stroke prevention. If does not convert plan DCCV tomorrow afternoon. 12/11/2016 Impression A. fib with RVR Acute hypoxic respiratory failure-still requiring high flow oxygen at approximately 7.5 L with O2 sats 88-90% COPD exacerbation- Obstructive sleep apnea-chronically on CPAP with 2 L of oxygen at night Acute bronchitis-rhinovirus positive Type 2 diabetes mellitus-poorly controlled Hypertension Dehydration -resolved Hypercalcemia-mild Presyncope-improving Schizophrenia with anxiety-doing okay Right lower extremity [id number] Doppler yesterday negative for DVT Plan Dr. Nicholas was consulted regarding A. fib with RVR. Amiodarone drip is being started. The patient was placed on full dose Lovenox. Serial cardiac enzymes have been ordered. Albuterol discontinued and Xopenex started Decrease IV steroids. Continue Acapella. Appreciate Dr. Mcmahan's consult. Echocardiogram pending CBC and basic metabolic profile tomorrow. 12/12/16 10:45 Cardiology Converted NSR last night: RATE 80's. Cardizem & amio d/c'd. Started Flecainide 50mg PO BID. D/c'd lovenox today and started xarelto for prophylaxis. BP elevated, increased lisinopril to 20mg daily. Lab WNL with Mag 2.0, TSH 0.58. Troponin WNL. ECHO 12/11/16: EF 75%, Pulm systolic pressure 33. 12/12/16 0900 Cardiology: Con'ts to remain in NSR. Serial troponins were all negative. Con't Flecainide 50mg PO BId. con't statin. Con't Xarelto for prophylaxis. BP still elevated. 1st dose of increased lisinopril given this AM. Added PRN hydralazine. Monitor. Lab remains stable. 12/12/16 17:24 Impression A. fib with RVR responded to therapy- now on flecanide and therapeutic enoxaparin Acute hypoxic respiratory failure-now decreased from high flow oxygen at approximately 7.5 L to 5 L with O2 sats 88-90% COPD exacerbation- Obstructive sleep apnea-chronically on CPAP with 2 L of oxygen at night Acute bronchitis-rhinovirus positive Type 2 diabetes mellitus-poorly controlled now on IV methylprednisolone Hypertension Dehydration -resolved Hypercalcemia-mild Presyncope-improved Schizophrenia with anxiety-doing okay Right lower extremity [id number] Doppler yesterday negative for DVT Plan Dr. Nicholas was consulted regarding A. fib with RVR. Albuterol discontinued and Xopenex started, Dr. Andersen seeing patient-? taper steroids Continue Acapella. Appreciate Dr. Andersen's consult. Echocardiogram pending Will transfer to floor on telemetry Discontinue Ceftriaxone When prednisone is tapered, consider Tdap, pneumovac 13 and 12/13/16 17: Nadiya Impression A. fib with RVR responded to therapy- now on flecanide and switched to xarelto Acute hypoxic respiratory failure-now decreased from high flow oxygen at approximately 7.5 L to 4 L with O2 sats 88-90% COPD exacerbation- Obstructive sleep apnea-chronically on CPAP with 2 L of oxygen at night Acute bronchitis-rhinovirus positive Type 2 diabetes mellitus-poorly controlled now on IV methylprednisolone 62.5 mg IV every 12 hours Hypertension Dehydration -resolved Hypercalcemia-mild Presyncope-improved Schizophrenia with anxiety-doing okay Right lower extremity [id number] Doppler negative for DVT Plan Dr. Nicholas is managing her blood pressure and A. fib with RVR. Albuterol discontinued and Xopenex started, discussed with Dr. Andersen. We will start a prednisone taper in the morning on his recommendation we'll do 40 mg by mouth daily for 3 days then 30 mg by mouth daily for 3 days, then 20 mg by mouth daily for 3 days then 10 mg by mouth daily for 3 days. Please note a quick glance at the margin does not show this information Continue Acapella. Echocardiogram results included Dr. Valdes has resumed her blood pressure medications and is making further adjustments -her diastolic was up to 110. The nurse has changed to a larger cuff for more reliable reading. Will monitor blood sugars closely the patient has been very insulin resistant in the past When prednisone is tapered, consider Tdap, pneumovac 13 and 23
[2016-12-13] MEDS: RIVAROXABAN 20 MG TABLET PO SCH (18:16)
[2016-12-13] MEDS: INSULIN GLARGINE 100unit/ml INJECTION SQ SCH (21:46)
[2016-12-13] MEDS: SALINE FLUSH 10ml SYRINGE IVF PRN (21:47)
[2016-12-13] MEDS: ATORVASTATIN 20 MG TABLET PO SCH (21:48)
[2016-12-14] MEDS: Ipratropium Inh NEB 0.02% (0.5mg/2.5ml) AEROSOL SCH ×6 (02:50→23:00)
[2016-12-14] MEDS: OMEPRAZOLE 20 MG CAPSULE PO SCH (05:32)
[2016-12-14] MEDS ORDERED: PredniSONE 5 MG TABLET PO SCH (08:00)
[2016-12-14] MEDS: INSULIN ASPART 100unit/ml INJECTION SQ SCH ×3 (08:36→18:15)
[2016-12-14] MEDS: GABAPENTIN 300 MG CAPSULE PO SCH ×3 (08:36→21:54)
[2016-12-14] MEDS: LISINOPRIL 20 MG TABLET PO SCH (08:36)
[2016-12-14] MEDS: BENZONATATE 100 MG CAPSULE PO SCH ×3 (08:36→21:55)
[2016-12-14] MEDS: ARIPiprazole 15 MG TABLET PO SCH (08:37)
[2016-12-14] MEDS: GUAIFENESIN LA 600 MG TABLET PO SCH ×2 (08:37→21:54)
[2016-12-14] MEDS: DULOXETINE 60 MG CAPSULE PO SCH (08:37)
[2016-12-14] MEDS: FLECAINIDE 50 MG TABLET PO SCH ×2 (08:37→21:55)
[2016-12-14] MEDS: METFORMIN 1,000 MG TABLET PO SCH ×2 (08:37→19:18)
[2016-12-14] MEDS: SALINE FLUSH 10ml SYRINGE IVF PRN ×2 (08:38→21:58)
[2016-12-14] MEDS: ALBUTEROL/IPRATROPIUM 2.5mg-0.5mg/3ml NEB AEROSOL SCH (14:08)
[2016-12-14] MEDS: DiltiaZEM 25 MG/5 ML INJECTION IVP SCH (14:09)
[2016-12-14] MEDS: DIGOXIN 500 MCG/2 ML INJECTION IVP SCH (14:09)
--- NOTE | 2016-12-14 15:00 | Progress Note ---
Subjective: Feeling much better. still some wheeze. asked about her WBC counts. (Due to prednisone). O2 down to 3 lpm Objective Vital signs: Temperature 98 F 12/14/16 13:30 Pulse Rate 97 12/14/16 13:30 Respiratory Rate 20 12/14/16 13:30 Blood Pressure 146/71 H 12/14/16 13:30 Pulse Oximetry 91 12/14/16 13:30 Oxygen Delivery Method Nasal Cannula Oxygen Flow Rate 3 Rhythm: Normal Sinus Rhythm, Sinus Tachycardia Weight: 112.3 kg - Constitutional Present: no acute distress, obese - Routine HEENT Exam Eye: Present: PERRL ENT: Present: mucous membranes moist - Routine Respiratory Exam Present: wheezes - Routine Cardiovascular Exam Present: RRR - Routine Abdominal Exam Present: soft - Routine Skin Exam Present: erythema Comments: clear no rash Results - Labs CBC & Chem 7: 12/14/16 12:57 12/14/16 12:57 Microbiology Results: Microbiology 12/08/16 21:05 Sputum, Expectorated Gram Stain - Final 12/08/16 21:05 Sputum, Expectorated Sputum Culture - Final Normal Respiratory Vickie Assessment and Plan (1) Acute respiratory failure with hypoxia Current visit: Yes Status: Acute 12/14/16 14:53 continue O2 by NC to keep sat >90%. May need to d/c on O2 (2) COPD exacerbation Current visit: Yes Status: Acute 12/14/16 15:00 continue prednisone, taper by 10 mg q 3-4 days as tolerated. neb albuterol and ipratropium q4 [place]. anticipate following as outpatient (3) Atrial fibrillation with rapid ventricular response Current visit: Yes Status: Acute (4) Obstructive sleep apnea Current visit: Yes Status: Acute 12/14/16 15:01 using her home Auto PAP. wore 4.7 hours last night. bleed in O2 until sats improve. Assessment and Plan: 12/12/2016 Nadiya Impression A. fib with RVR responded to therapy- now on flecanide and switched to xarelto Acute hypoxic respiratory failure-now decreased from high flow oxygen at approximately 7.5 L to 4 L with O2 sats 88-90% COPD exacerbation- Obstructive sleep apnea-chronically on CPAP with 2 L of oxygen at night Acute bronchitis-rhinovirus positive Type 2 diabetes mellitus-poorly controlled now on IV methylprednisolone 62.5 mg IV every 12 hours Hypertension Dehydration -resolved Hypercalcemia-mild Presyncope-improved Schizophrenia with anxiety-doing okay Right lower extremity pfzfr-hxtbonit-wmmbvc Doppler negative for DVT Plan Dr. Nicholas is managing her blood pressure and A. fib with RVR. Albuterol discontinued and Xopenex started, discussed with Dr. Andersen. We will start a prednisone taper in the morning on his recommendation we'll do 40 mg by mouth daily for 3 days then 30 mg by mouth daily for 3 days, then 20 mg by mouth daily for 3 days then 10 mg by mouth daily for 3 days. Please note a quick glance at the margin does not show this information Continue Acapella. Echocardiogram results included DrRatna Valdes has resumed her blood pressure medications and is making further adjustments her diastolic was up to 110. The nurse has changed to a larger cuff for more reliable reading. Will monitor blood sugars closely the patient has been very insulin resistant in the past When prednisone is tapered, consider Tdap, pneumovac 13 and 23 Sepsis Assessment - Evaluation Sepsis screening result: No Definite Risk Hospital Course Summary Disclaimer: The visit summary below is not to be considered part of the above Progress Note. Hospital Course: 12/08/2016 Impression Acute hypoxic respiratory failure COPD exacerbation Obstructive sleep apnea Acute bronchitis Type 2 diabetes mellitus-poorly controlled Hypertension Hypercalcemia Presyncope-possible dehydration Schizophrenia with anxiety Plan Admit as inpatient to CCU for close monitoring with COPD exacerbation and high oxygen needs. Continue breathing treatments, supplemental oxygen, and Solu- Medrol 125 mg IV every 6 hours. Rocephin 1 g IV daily start today. Repeat chest x-ray tomorrow. Sputum for Gram stain, culture and sensitivity. Viral respiratory swab. Monitor Accu-Cheks and give usual home insulin. May need supplemental insulin. Reglan as needed for nausea Lovenox and SCDs for DVT prophylaxis Continue home PPI. We'll give 1 L of IV fluids for dehydration with hypercalcemia and recheck in the morning Greater than 1 hour time spent seeing and evaluating the patient in determining care plan. 12/09/2016 Impression Acute hypoxic respiratory failure-still requiring high flow oxygen at approximately 7 L with O2 sats 88-90% COPD exacerbation-improving symptomatically Obstructive sleep apnea Acute bronchitis-rhinovirus positive Type 2 diabetes mellitus-poorly controlled Hypertension Hypercalcemia-resolved Presyncope-possible dehydration-improved but not resolved Schizophrenia with anxiety-mood and anxiety is better today Right lower extremity edema and pain, rule out DVT Plan Regarding acute hypoxic respiratory failure we'll continue breathing treatments , steroids and supplemental oxygen. Continue CPAP at night. Increase activity as tolerated Restart metformin and check hemoglobin A1c regarding diabetes. Give sliding scale insulin DC IV fluids 1 current bag is empty Continue Rocephin for now for COPD exacerbation Restart lisinopril for hypertension. Continue off hydrochlorothiazide due to the patient's lightheadedness with standing Venous Doppler of the right lower extremity to rule out DVT Repeat CBC and basic metabolic profile tomorrow Possible transfer later today if respiratory status is stable to improving 12/11/16 10:30 Cardiology RVR: RATE 110-140S. Onest 0330 TODAY. Continue Cardizem Drip AT 15MG/HR, Add Amiodarone bolus and drip to attempt conversion. Digoxin 500mcg IV X1 for rate control. Check Mag and serial troponin. Echo pending. Increase Lovenox to 1mg/kg SQ BID for stroke prevention. If does not convert plan DCCV tomorrow afternoon. 12/11/2016 Impression A. fib with RVR Acute hypoxic respiratory failure-still requiring high flow oxygen at approximately 7.5 L with O2 sats 88-90% COPD exacerbation- Obstructive sleep apnea-chronically on CPAP with 2 L of oxygen at night Acute bronchitis-rhinovirus positive Type 2 diabetes mellitus-poorly controlled Hypertension Dehydration -resolved Hypercalcemia-mild Presyncope-improving Schizophrenia with anxiety-doing okay Right lower extremity tjbsd-joztmpui-napbit Doppler yesterday negative for DVT Plan Dr. Nicholas was consulted regarding A. fib with RVR. Amiodarone drip is being started. The patient was placed on full dose Lovenox. Serial cardiac enzymes have been ordered. Albuterol discontinued and Xopenex started Decrease IV steroids. Continue Acapella. Appreciate Dr. Mcmahan's consult. Echocardiogram pending CBC and basic metabolic profile tomorrow. 12/12/16 10:45 Cardiology Converted NSR last night: RATE 80's. Cardizem & amio d/c'd. Started Flecainide 50mg PO BID. D/c'd lovenox today and started xarelto for prophylaxis. BP elevated, increased lisinopril to 20mg daily. Lab WNL with Mag 2.0, TSH 0.58. Troponin WNL. ECHO 12/11/16: EF 75%, Pulm systolic pressure 33. 12/12/16 0900 Cardiology: Con'ts to remain in NSR. Serial troponins were all negative. Con't Flecainide 50mg PO BId. con't statin. Con't Xarelto for prophylaxis. BP still elevated. 1st dose of increased lisinopril given this AM. Added PRN hydralazine. Monitor. Lab remains stable. 12/12/16 17:24 Impression A. fib with RVR responded to therapy- now on flecanide and therapeutic enoxaparin Acute hypoxic respiratory failure-now decreased from high flow oxygen at approximately 7.5 L to 5 L with O2 sats 88-90% COPD exacerbation- Obstructive sleep apnea-chronically on CPAP with 2 L of oxygen at night Acute bronchitis-rhinovirus positive Type 2 diabetes mellitus-poorly controlled now on IV methylprednisolone Hypertension Dehydration -resolved Hypercalcemia-mild Presyncope-improved Schizophrenia with anxiety-doing okay Right lower extremity epqsc-ysrstbwm-lijqxz Doppler yesterday negative for DVT Plan Dr. Nicholas was consulted regarding A. fib with RVR. Albuterol discontinued and Xopenex started, Dr. Andersen seeing patient-? taper steroids Continue Acapella. Appreciate Dr. Andersen's consult. Echocardiogram pending Will transfer to floor on telemetry Discontinue Ceftriaxone When prednisone is tapered, consider Tdap, pneumovac 13 and 12/13/16 17:447 Nadiya Impression A. fib with RVR responded to therapy- now on flecanide and switched to xarelto Acute hypoxic respiratory failure-now decreased from high flow oxygen at approximately 7.5 L to 4 L with O2 sats 88-90% COPD exacerbation- Obstructive sleep apnea-chronically on CPAP with 2 L of oxygen at night Acute bronchitis-rhinovirus positive Type 2 diabetes mellitus-poorly controlled now on IV methylprednisolone 62.5 mg IV every 12 hours Hypertension Dehydration -resolved Hypercalcemia-mild Presyncope-improved Schizophrenia with anxiety-doing okay Right lower extremity wsmmu-edirogvb-reqdcx Doppler negative for DVT Plan Dr. Nicholas is managing her blood pressure and A. fib with RVR. Albuterol discontinued and Xopenex started, discussed with Dr. Andersen. We will start a prednisone taper in the morning on his recommendation we'll do 40 mg by mouth daily for 3 days then 30 mg by mouth daily for 3 days, then 20 mg by mouth daily for 3 days then 10 mg by mouth daily for 3 days. Please note a quick glance at the margin does not show this information Continue Acapella. Echocardiogram results included Dr. Valdes has resumed her blood pressure medications and is making further adjustments -her diastolic was up to 110. The nurse has changed to a larger cuff for more reliable reading. Will monitor blood sugars closely the patient has been very insulin resistant in the past When prednisone is tapered, consider Tdap, pneumovac 13 and 23
[2016-12-14] MEDS: INSULIN REGULAR, HUMAN 100 UNIT/ML INJECTION SQ SCH ×2 (19:18→19:26)
[2016-12-14] MEDS: RIVAROXABAN 20 MG TABLET PO SCH (19:27)
[2016-12-14] MEDS ORDERED: INSULIN ASPART 100unit/ml INJECTION SQ PRN (20:00)
[2016-12-14] MEDS: ATORVASTATIN 20 MG TABLET PO SCH (21:58)
[2016-12-14] MEDS ORDERED: INSULIN GLARGINE 100unit/ml INJECTION SQ SCH (22:00)
[2016-12-15] MEDS: Ipratropium Inh NEB 0.02% (0.5mg/2.5ml) AEROSOL SCH ×6 (02:50→23:34)
[2016-12-15] MEDS: OMEPRAZOLE 20 MG CAPSULE PO SCH (07:51)
[2016-12-15] MEDS: PredniSONE 5 MG TABLET PO SCH (08:10)
[2016-12-15] MEDS: INSULIN ASPART 100unit/ml INJECTION SQ SCH ×3 (08:10→17:42)
[2016-12-15] MEDS: GABAPENTIN 300 MG CAPSULE PO SCH ×3 (08:11→21:04)
[2016-12-15] MEDS: DULOXETINE 60 MG CAPSULE PO SCH (08:11)
[2016-12-15] MEDS: FLECAINIDE 50 MG TABLET PO SCH ×2 (08:11→21:04)
[2016-12-15] MEDS: GUAIFENESIN LA 600 MG TABLET PO SCH ×2 (08:11→21:03)
[2016-12-15] MEDS: LISINOPRIL 20 MG TABLET PO SCH (08:11)
[2016-12-15] MEDS: BENZONATATE 100 MG CAPSULE PO SCH ×3 (08:11→21:04)
[2016-12-15] MEDS: ARIPiprazole 15 MG TABLET PO SCH (08:11)
[2016-12-15] MEDS: METFORMIN 1,000 MG TABLET PO SCH ×2 (08:12→17:43)
[2016-12-15] MEDS: SALINE FLUSH 10ml SYRINGE IVF PRN ×2 (08:12→21:05)
--- NOTE | 2016-12-15 12:01 | Progress Note ---
<FreemanScottiecorina Hernandez - Last Filed: 12/15/16 11:58> Subjective: Roselyn is seen today in follow up. She reports that she is feeling slowly better. Still a bit wheezy, but SOA is quite a bit better. No chest pain. No other acute concerns. Her skin tone/facial color is deep red- she reports this is her normal color. Does not have increased sun exposure. Objective Vital signs: Temperature 97.8 F 12/15/16 07:33 Pulse Rate 83 12/15/16 08:00 Respiratory Rate 22 12/15/16 11:26 Blood Pressure 146/78 H 12/15/16 07:33 Pulse Oximetry 92 12/15/16 11:26 Oxygen Delivery Method Nasal Cannula Oxygen Flow Rate 4 Weight: 242 lb 8.136 oz - Constitutional Present: no acute distress, well nourished, obese, cooperative - Routine HEENT Exam Head: Present: normocephalic, atraumatic Eye: Present: EOMI, PERRL ENT: Present: mucous membranes moist - Routine Respiratory Exam Present: dyspnea, wheezes Comments: Mildly SOA at rest. Scattered wheezes throughout, but fairly good air flow. - Routine Cardiovascular Exam Present: RRR, S1, S2, no murmur - Routine Abdominal Exam Present: soft, normoactive bowel sounds, non distended, non tender - Routine Extremities Exam Present: no edema, non tender, full ROM. Absent: cyanosis, clubbing, edema - Routine Musculoskeletal Exam Musculoskeletal: Present: no clubbing or cyanosis, normal strength, no tenderness - Routine Skin Exam Present: intact, erythema (Face/arms deep red- this is normal skin tone per pt. ), dry, warm - Routine Neurological Exam Present: alert, oriented X3 - Routine Psychiatric Exam Present: cooperative, good insight, good judgment Results - Labs CBC & Chem 7: 12/15/16 08:00 12/15/16 08:00 Microbiology Results: Microbiology 12/08/16 21:05 Sputum, Expectorated Gram Stain - Final 12/08/16 21:05 Sputum, Expectorated Sputum Culture - Final Normal Respiratory Vickie Assessment and Plan (1) Acute bronchitis Current visit: Yes Status: Acute (2) Acute respiratory failure with hypoxia Current visit: Yes Status: Acute (3) Atrial fibrillation with rapid ventricular response Current visit: Yes Status: Acute (4) COPD exacerbation Current visit: Yes Status: Acute (5) Essential (primary) hypertension Current visit: Yes Status: Chronic (6) Obstructive sleep apnea Current visit: Yes Status: Chronic (7) Type 2 diabetes mellitus without complications Current visit: Yes Status: Chronic DVT Prophylaxis: Xarelto GI Prophylaxis: other (PPI) Resuscitation Status: Full Code Assessment and Plan: 12/15/2016 Nadiya Impression *A. fib with RVR, now rate controlled. Dr. Nicholas following. Flecainide, Xarelto. Monitor EKG/Tele in light of antipsychotics needed. *Acute hypoxic respiratory failure/COPD Exacerbation/MARGARITA/OHS *Obstructive sleep apnea-chronically on CPAP with 2 L of oxygen at night *Acute bronchitis-rhinovirus positive Dr. Mcmahan following. Steroids changed to PO. Will adjust insulin down a bit as BG will drop. Expect leukocytosis will improve as steroids decline. Continue Xopenex/Ipratropium. When prednisone is tapered, consider Tdap, pneumovac 13 and 23 *Type 2 diabetes mellitus, poor control Continue metformin. Will change Lantus to BID for better absorption. Decrease daily dose from 135 to 120 units. Short acting insulin decreased to 40 units with meals. *Hypertension RAMY (SCr ok). Dehydration/Presyncope/Hypercalcemia- improving. Schizophrenia with anxiety-doing okay-continue home medications. Overall, doing well. Continue supportive therapy. - Time spent with patient 25 - 35 minutes Sepsis Assessment - Evaluation Sepsis screening result: No Definite Risk Hospital Course Summary Disclaimer: The visit summary below is not to be considered part of the above Progress Note. Hospital Course: 12/08/2016 Impression Acute hypoxic respiratory failure COPD exacerbation Obstructive sleep apnea Acute bronchitis Type 2 diabetes mellitus-poorly controlled Hypertension Hypercalcemia Presyncope-possible dehydration Schizophrenia with anxiety Plan Admit as inpatient to CCU for close monitoring with COPD exacerbation and high oxygen needs. Continue breathing treatments, supplemental oxygen, and Solu- Medrol 125 mg IV every 6 hours. Rocephin 1 g IV daily start today. Repeat chest x-ray tomorrow. Sputum for Gram stain, culture and sensitivity. Viral respiratory swab. Monitor Accu-Cheks and give usual home insulin. May need supplemental insulin. Reglan as needed for nausea Lovenox and SCDs for DVT prophylaxis Continue home PPI. We'll give 1 L of IV fluids for dehydration with hypercalcemia and recheck in the morning Greater than 1 hour time spent seeing and evaluating the patient in determining care plan. 12/09/2016 Impression Acute hypoxic respiratory failure-still requiring high flow oxygen at approximately 7 L with O2 sats 88-90% COPD exacerbation-improving symptomatically Obstructive sleep apnea Acute bronchitis-rhinovirus positive Type 2 diabetes mellitus-poorly controlled Hypertension Hypercalcemia-resolved Presyncope-possible dehydration-improved but not resolved Schizophrenia with anxiety-mood and anxiety is better today Right lower extremity edema and pain, rule out DVT Plan Regarding acute hypoxic respiratory failure we'll continue breathing treatments , steroids and supplemental oxygen. Continue CPAP at night. Increase activity as tolerated Restart metformin and check hemoglobin A1c regarding diabetes. Give sliding scale insulin DC IV fluids 1 current bag is empty Continue Rocephin for now for COPD exacerbation Restart lisinopril for hypertension. Continue off hydrochlorothiazide due to the patient's lightheadedness with standing Venous Doppler of the right lower extremity to rule out DVT Repeat CBC and basic metabolic profile tomorrow Possible transfer later today if respiratory status is stable to improving 12/11/16 10:30 Cardiology RVR: RATE 110-140S. Onest 0330 TODAY. Continue Cardizem Drip AT 15MG/HR, Add Amiodarone bolus and drip to attempt conversion. Digoxin 500mcg IV X1 for rate control. Check Mag and serial troponin. Echo pending. Increase Lovenox to 1mg/kg SQ BID for stroke prevention. If does not convert plan DCCV tomorrow afternoon. 12/11/2016 Impression A. fib with RVR Acute hypoxic respiratory failure-still requiring high flow oxygen at approximately 7.5 L with O2 sats 88-90% COPD exacerbation- Obstructive sleep apnea-chronically on CPAP with 2 L of oxygen at night Acute bronchitis-rhinovirus positive Type 2 diabetes mellitus-poorly controlled Hypertension Dehydration -resolved Hypercalcemia-mild Presyncope-improving Schizophrenia with anxiety-doing okay Right lower extremity tevqt-kxqkkncn-ivlmim Doppler yesterday negative for DVT Plan Dr. Nicholas was consulted regarding A. fib with RVR. Amiodarone drip is being started. The patient was placed on full dose Lovenox. Serial cardiac enzymes have been ordered. Albuterol discontinued and Xopenex started Decrease IV steroids. Continue Acapella. Appreciate Dr. Mcmahan's consult. Echocardiogram pending CBC and basic metabolic profile tomorrow. 12/12/16 10:45 Cardiology Converted NSR last night: RATE 80's. Cardizem & amio d/c'd. Started Flecainide 50mg PO BID. D/c'd lovenox today and started xarelto for prophylaxis. BP elevated, increased lisinopril to 20mg daily. Lab WNL with Mag 2.0, TSH 0.58. Troponin WNL. ECHO 12/11/16: EF 75%, Pulm systolic pressure 33. 12/12/16 0900 Cardiology: Con'ts to remain in NSR. Serial troponins were all negative. Con't Flecainide 50mg PO BId. con't statin. Con't Xarelto for prophylaxis. BP still elevated. 1st dose of increased lisinopril given this AM. Added PRN hydralazine. Monitor. Lab remains stable. 12/12/16 17:24 Impression A. fib with RVR responded to therapy- now on flecanide and therapeutic enoxaparin Acute hypoxic respiratory failure-now decreased from high flow oxygen at approximately 7.5 L to 5 L with O2 sats 88-90% COPD exacerbation- Obstructive sleep apnea-chronically on CPAP with 2 L of oxygen at night Acute bronchitis-rhinovirus positive Type 2 diabetes mellitus-poorly controlled now on IV methylprednisolone Hypertension Dehydration -resolved Hypercalcemia-mild Presyncope-improved Schizophrenia with anxiety-doing okay Right lower extremity lulmi-drqnjrsf-kmfprf Doppler yesterday negative for DVT Plan Dr. Nicholas was consulted regarding A. fib with RVR. Albuterol discontinued and Xopenex started, Dr. Andersen seeing patient-? taper steroids Continue Acapella. Appreciate Dr. Andersen's consult. Echocardiogram pending Will transfer to floor on telemetry Discontinue Ceftriaxone When prednisone is tapered, consider Tdap, pneumovac and 12/13/16 17: Nadiya Impression A. fib with RVR responded to therapy- now on flecanide and switched to xarelto Acute hypoxic respiratory failure-now decreased from high flow oxygen at approximately 7.5 L to 4 L with O2 sats 88-90% COPD exacerbation- Obstructive sleep apnea-chronically on CPAP with 2 L of oxygen at night Acute bronchitis-rhinovirus positive Type 2 diabetes mellitus-poorly controlled now on IV methylprednisolone 62.5 mg IV every 12 hours Hypertension Dehydration -resolved Hypercalcemia-mild Presyncope-improved Schizophrenia with anxiety-doing okay Right lower extremity ledwl-yhiitwwf-zcqknt Doppler negative for DVT Plan Dr. Nicholas is managing her blood pressure and A. fib with RVR. Albuterol discontinued and Xopenex started, discussed with Dr. Andersen. We will start a prednisone taper in the morning on his recommendation we'll do 40 mg by mouth daily for 3 days then 30 mg by mouth daily for 3 days, then 20 mg by mouth daily for 3 days then 10 mg by mouth daily for 3 days. Please note a quick glance at the margin does not show this information Continue Acapella. Echocardiogram results included Dr. Valdes has resumed her blood pressure medications and is making further adjustments -her diastolic was up to 110. The nurse has changed to a larger cuff for more reliable reading. Will monitor blood sugars closely the patient has been very insulin resistant in the past When prednisone is tapered, consider Tdap, pneumovac and 12/15/16 12:17 Impression *A. fib with RVR, now rate controlled. Dr. Nicholas following. Flecainide, Xarelto. Monitor EKG/Tele in light of antipsychotics needed. *Acute hypoxic respiratory failure/COPD Exacerbation/MARGARITA/OHS *Obstructive sleep apnea-chronically on CPAP with 2 L of oxygen at night *Acute bronchitis-rhinovirus positive Dr. Mcmahan following. Steroids changed to PO. Will adjust insulin down a bit as BG will drop. Expect leukocytosis will improve as steroids decline. Continue Xopenex/Ipratropium. When prednisone is tapered, consider Tdap, pneumovac and *Type 2 diabetes mellitus, poor control Continue metformin. Will change Lantus to BID for better absorption. Decrease daily dose from 135 to 120 units. Short acting insulin decreased to 40 units with meals. *Hypertension RAMY (SCr ok). Dehydration/Presyncope/Hypercalcemia- improving. Schizophrenia with anxiety-doing okay-continue home medications. <Brenda Hearn - Last Filed: 12/15/16 17:02> Objective Vital signs: Temperature 96.1 F L 12/15/16 15:27 Pulse Rate 84 12/15/16 16:00 Respiratory Rate 18 12/15/16 15:27 Blood Pressure 139/77 12/15/16 15:27 Pulse Oximetry 93 12/15/16 15:27 Oxygen Delivery Method Nasal Cannula Oxygen Flow Rate 3.5 Results - Labs CBC & Chem 7: 12/15/16 08:00 12/15/16 08:00 Microbiology Results: Microbiology 12/08/16 21:05 Sputum, Expectorated Gram Stain - Final 12/08/16 21:05 Sputum, Expectorated Sputum Culture - Final Normal Respiratory Vickie Assessment and Plan (1) Atrial fibrillation with rapid ventricular response Current visit: Yes Status: Acute (2) Acute respiratory failure with hypoxia Current visit: Yes Status: Acute (3) COPD exacerbation Current visit: Yes Status: Acute (4) Acute bronchitis Current visit: Yes Status: Acute (5) Essential (primary) hypertension Current visit: Yes Status: Chronic (6) Type 2 diabetes mellitus without complications Current visit: Yes Status: Chronic (7) Obstructive sleep apnea Current visit: Yes Status: Chronic Assessment and Plan: I have independently evaluated and examined this patient. I reviewed the chart, the patient's history, and the RENAL DIALYSIS TECHNICIAN/PA's documented findings as above. We discussed and formulated the assessment and plan as above with additions as below. Discussed the patient's diabetes with her. She reports diabetes coordinator has been in to speak with her several times. She does report that she likes sweets and she does eat candy fairly frequently. She acknowledges that the coordinator advised her to limit it to small portions of sweets once a week. Discussed the difficulties of adjusting the patient's insulin based on her adherence to her diet at home. We'll continue to make further adjustments while in the hospital. Patient is currently on steroids which further complicates her glucose control. Ideally we will be able to get her home in the next few days. She may require home O2 as well. Hospital Course Summary Disclaimer: The visit summary below is not to be considered part of the above Progress Note.
--- NOTE | 2016-12-15 14:55 | Progress Note ---
Subjective: This is a late entry of the visit from 12/14/2016 the patient. The patient was seen at 1620 p.m. the note was originally written on paper form in 1830 p.m. The patient is doing well resting comfortably in bed with occasional productive cough she remains on O2. She denies any shortness of breath she has had bowel movements and fevers no chills no sweats. She is eating well. She has had a few episodes of hypoglycemia, and her insulin has been adjusted accordingly. She did have a blood sugar down to the 70s today after she is changed from IV Solu-Medrol to oral prednisone 40 mg by mouth daily this a.m. Objective Vital signs: Oxygen Delivery Method Nasal Cannula Oxygen Flow Rate 3 Selected Entries 12/14/16 02:50 12/14/16 04:30 12/14/16 07:25 Temperature Pulse Rate Respiratory Rate Pulse Oximetry 89 L 91 92 Oxygen Delivery Method Nasal Cannula Nasal Cannula Oxygen Flow Rate 2 3 12/14/16 15:00 Temperature 97.0 F Pulse Rate 92 Respiratory Rate 20 Pulse Oximetry 90 Oxygen Delivery Method Oxygen Flow Rate 3 Weight: 242 lb 8.136 oz - Additional findings Additional findings: In general, the patient is alert and oriented 3, cooperative with exam, and in no respiratory distress. HEENT: Head is atraumatic, normocephalic, no conjunctival petechiae, no oral thrush, mucous membranes are moist and pink. Lungs: Coarse with rhonchi CV: Regular rate and rhythm without murmur, occasional extrasystole Abdomen: Obese, Soft, nontender, bowel sounds are present, there is no guarding no rebound. Extremities: No clubbing, no cyanosis, no edema. Skin: Warm and dry no sign of rash Neuro: Patient is alert Results - Labs CBC & Chem 7: 12/15/16 08:00 12/15/16 08:00 Microbiology Results: Microbiology 12/08/16 21:05 Sputum, Expectorated Gram Stain - Final 12/08/16 21:05 Sputum, Expectorated Sputum Culture - Final Normal Respiratory Vickie Assessment and Plan (1) Atrial fibrillation with rapid ventricular response Current visit: Yes Status: Acute (2) Acute respiratory failure with hypoxia Current visit: Yes Status: Acute (3) COPD exacerbation Current visit: Yes Status: Acute (4) Acute bronchitis Current visit: Yes Status: Acute (5) Essential (primary) hypertension Current visit: Yes Status: Chronic (6) Type 2 diabetes mellitus without complications Current visit: Yes Status: Chronic (7) Obstructive sleep apnea Current visit: Yes Status: Chronic Assessment and Plan: 12/15/2016 Nadiya Impression *A. fib with RVR, now rate controlled. Dr. Nicholas following. Flecainide, Xarelto. Monitor EKG/Tele in light of antipsychotics needed. *Acute hypoxic respiratory failure/COPD Exacerbation/MARGARITA/OHS *Obstructive sleep apnea-chronically on CPAP with 2 L of oxygen at night *Acute bronchitis-rhinovirus positive Dr. Mcmahan following. Steroids changed to PO. Will adjust insulin down a bit as BG will drop. Expect leukocytosis will improve as steroids decline. Continue Xopenex/Ipratropium. When prednisone is tapered, consider Tdap, pneumovac and *Type 2 diabetes mellitus, poor control Continue metformin. Will change Lantus to BID for better absorption. Decrease daily dose from 135 to 120 units. Short acting insulin decreased to 40 units with meals. *Hypertension RAMY (SCr ok). Dehydration/Presyncope/Hypercalcemia- improving. Schizophrenia with anxiety-doing okay-continue home medications. Overall, doing well. Continue supportive therapy. Please note the above data is from December 15. The following is the assessment and plan from December 14 Assessment and plan acute exacerbation of COPD with rhinovirus on steroid taper patient has been changed to by mouth prednisone 40 mg daily this a.m., we'll continue to observe and continue oxygen atrial fibrillation with rapid ventricular response (converted) managed by cardiology Hypertension responding to medications Diabetes with hypoglycemic episode today Have adjusted insulin NovoLog 40 units subcutaneous with meals from 50 units, have decreased Lantus at night to 135 units subcutaneous daily at bedtime Sepsis Assessment - Evaluation Sepsis screening result: No Definite Risk Hospital Course Summary Disclaimer: The visit summary below is not to be considered part of the above Progress Note. Hospital Course: 12/08/2016 Impression Acute hypoxic respiratory failure COPD exacerbation Obstructive sleep apnea Acute bronchitis Type 2 diabetes mellitus-poorly controlled Hypertension Hypercalcemia Presyncope-possible dehydration Schizophrenia with anxiety Plan Admit as inpatient to CCU for close monitoring with COPD exacerbation and high oxygen needs. Continue breathing treatments, supplemental oxygen, and Solu- Medrol 125 mg IV every 6 hours. Rocephin 1 g IV daily start today. Repeat chest x-ray tomorrow. Sputum for Gram stain, culture and sensitivity. Viral respiratory swab. Monitor Accu-Cheks and give usual home insulin. May need supplemental insulin. Reglan as needed for nausea Lovenox and SCDs for DVT prophylaxis Continue home PPI. We'll give 1 L of IV fluids for dehydration with hypercalcemia and recheck in the morning Greater than 1 hour time spent seeing and evaluating the patient in determining care plan. 12/09/2016 Impression Acute hypoxic respiratory failure-still requiring high flow oxygen at approximately 7 L with O2 sats 88-90% COPD exacerbation-improving symptomatically Obstructive sleep apnea Acute bronchitis-rhinovirus positive Type 2 diabetes mellitus-poorly controlled Hypertension Hypercalcemia-resolved Presyncope-possible dehydration-improved but not resolved Schizophrenia with anxiety-mood and anxiety is better today Right lower extremity edema and pain, rule out DVT Plan Regarding acute hypoxic respiratory failure we'll continue breathing treatments , steroids and supplemental oxygen. Continue CPAP at night. Increase activity as tolerated Restart metformin and check hemoglobin A1c regarding diabetes. Give sliding scale insulin DC IV fluids 1 current bag is empty Continue Rocephin for now for COPD exacerbation Restart lisinopril for hypertension. Continue off hydrochlorothiazide due to the patient's lightheadedness with standing Venous Doppler of the right lower extremity to rule out DVT Repeat CBC and basic metabolic profile tomorrow Possible transfer later today if respiratory status is stable to improving 12/11/16 10:30 Cardiology RVR: RATE 110-140S. Onest 0330 TODAY. Continue Cardizem Drip AT 15MG/HR, Add Amiodarone bolus and drip to attempt conversion. Digoxin 500mcg IV X1 for rate control. Check Mag and serial troponin. Echo pending. Increase Lovenox to 1mg/kg SQ BID for stroke prevention. If does not convert plan DCCV tomorrow afternoon. 12/11/2016 Impression A. fib with RVR Acute hypoxic respiratory failure-still requiring high flow oxygen at approximately 7.5 L with O2 sats 88-90% COPD exacerbation- Obstructive sleep apnea-chronically on CPAP with 2 L of oxygen at night Acute bronchitis-rhinovirus positive Type 2 diabetes mellitus-poorly controlled Hypertension Dehydration -resolved Hypercalcemia-mild Presyncope-improving Schizophrenia with anxiety-doing okay Right lower extremity gqmri-amtsdnew-doftpk Doppler yesterday negative for DVT Plan Dr. Nicholas was consulted regarding A. fib with RVR. Amiodarone drip is being started. The patient was placed on full dose Lovenox. Serial cardiac enzymes have been ordered. Albuterol discontinued and Xopenex started Decrease IV steroids. Continue Acapella. Appreciate Dr. Mcmahan's consult. Echocardiogram pending CBC and basic metabolic profile tomorrow. 12/12/16 10:45 Cardiology Converted NSR last night: RATE 80's. Cardizem & amio d/c'd. Started Flecainide 50mg PO BID. D/c'd lovenox today and started xarelto for prophylaxis. BP elevated, increased lisinopril to 20mg daily. Lab WNL with Mag 2.0, TSH 0.58. Troponin WNL. ECHO 12/11/16: EF 75%, Pulm systolic pressure 33. 12/12/16 0900 Cardiology: Con'ts to remain in NSR. Serial troponins were all negative. Con't Flecainide 50mg PO BId. con't statin. Con't Xarelto for prophylaxis. BP still elevated. 1st dose of increased lisinopril given this AM. Added PRN hydralazine. Monitor. Lab remains stable. 12/12/16 17:24 Impression A. fib with RVR responded to therapy- now on flecanide and therapeutic enoxaparin Acute hypoxic respiratory failure-now decreased from high flow oxygen at approximately 7.5 L to 5 L with O2 sats 88-90% COPD exacerbation- Obstructive sleep apnea-chronically on CPAP with 2 L of oxygen at night Acute bronchitis-rhinovirus positive Type 2 diabetes mellitus-poorly controlled now on IV methylprednisolone Hypertension Dehydration -resolved Hypercalcemia-mild Presyncope-improved Schizophrenia with anxiety-doing okay Right lower extremity vnxyg-oblwbqiv-wilhlr Doppler yesterday negative for DVT Plan Dr. Nicholas was consulted regarding A. fib with RVR. Albuterol discontinued and Xopenex started, Dr. Andersen seeing patient-? taper steroids Continue Acapella. Appreciate Dr. Andersen's consult. Echocardiogram pending Will transfer to floor on telemetry Discontinue Ceftriaxone When prednisone is tapered, consider Tdap, pneumovac 13 and 12/13/16 17: Nadiya Impression A. fib with RVR responded to therapy- now on flecanide and switched to xarelto Acute hypoxic respiratory failure-now decreased from high flow oxygen at approximately 7.5 L to 4 L with O2 sats 88-90% COPD exacerbation- Obstructive sleep apnea-chronically on CPAP with 2 L of oxygen at night Acute bronchitis-rhinovirus positive Type 2 diabetes mellitus-poorly controlled now on IV methylprednisolone 62.5 mg IV every 12 hours Hypertension Dehydration -resolved Hypercalcemia-mild Presyncope-improved Schizophrenia with anxiety-doing okay Right lower extremity bqieq-fagycgde-hzbeez Doppler negative for DVT Plan Dr. Nicholas is managing her blood pressure and A. fib with RVR. Albuterol discontinued and Xopenex started, discussed with Dr. Andersen. We will start a prednisone taper in the morning on his recommendation we'll do 40 mg by mouth daily for 3 days then 30 mg by mouth daily for 3 days, then 20 mg by mouth daily for 3 days then 10 mg by mouth daily for 3 days. Please note a quick glance at the margin does not show this information Continue Acapella. Echocardiogram results included Dr. Valdes has resumed her blood pressure medications and is making further adjustments -her diastolic was up to 110. The nurse has changed to a larger cuff for more reliable reading. Will monitor blood sugars closely the patient has been very insulin resistant in the past When prednisone is tapered, consider Tdap, pneumovac and Assessment and plan acute exacerbation of COPD with rhinovirus on steroid taper patient has been changed to by mouth prednisone 40 mg daily this a.m., we'll continue to observe and continue oxygen atrial fibrillation with rapid ventricular response (converted) managed by cardiology Hypertension responding to medications Diabetes with hypoglycemic episode today Have adjusted insulin NovoLog 40 units subcutaneous with meals from 50 units, have decreased Lantus at night to 135 units subcutaneous daily at bedtime 12/15/16 12:17 Impression *A. fib with RVR, now rate controlled. Dr. Nicholas following. Flecainide, Xarelto. Monitor EKG/Tele in light of antipsychotics needed. *Acute hypoxic respiratory failure/COPD Exacerbation/MARGARITA/OHS *Obstructive sleep apnea-chronically on CPAP with 2 L of oxygen at night *Acute bronchitis-rhinovirus positive Dr. Mcmahan following. Steroids changed to PO. Will adjust insulin down a bit as BG will drop. Expect leukocytosis will improve as steroids decline. Continue Xopenex/Ipratropium. When prednisone is tapered, consider Tdap, pneumovac and *Type 2 diabetes mellitus, poor control Continue metformin. Will change Lantus to BID for better absorption. Decrease daily dose from 135 to 120 units. Short acting insulin decreased to 40 units with meals. *Hypertension RAMY (SCr ok). Dehydration/Presyncope/Hypercalcemia- improving. Schizophrenia with anxiety-doing okay-continue home medications. 12/15/16 15:27
[2016-12-15] MEDS: RIVAROXABAN 20 MG TABLET PO SCH (17:43)
[2016-12-15] MEDS: ACETAMINOPHEN 500 MG TABLET PO PRN (18:39)
[2016-12-15] MEDS: ATORVASTATIN 20 MG TABLET PO SCH (21:03)
[2016-12-15] MEDS: INSULIN GLARGINE 100unit/ml INJECTION SQ SCH (21:04)
[2016-12-16] MEDS: Ipratropium Inh NEB 0.02% (0.5mg/2.5ml) AEROSOL SCH ×6 (03:06→22:44)
[2016-12-16] MEDS: OMEPRAZOLE 20 MG CAPSULE PO SCH (06:04)
[2016-12-16] MEDS: SALINE FLUSH 10ml SYRINGE IVF PRN ×2 (06:05→21:14)
--- NOTE | 2016-12-16 07:56 | XRay Report ---
Indication: COPD PROCEDURE: XR chest 2V: Encounter: Initial Comparison: Portable chest, 12/10/2016 Findings: Two views of the chest are submitted. The lungs are mildly hyperexpanded consistent with COPD but clear of confluent infiltrate. The heart is unenlarged, there is no pulmonary vascular engorgement, there is no tracheal deviation, and the pleural spaces are clear. Bony structures intact. Monitor leads overlie the chest. Impression: Findings suggestive of some element of COPD but no acute chest disease is suspected. .
[2016-12-16] MEDS: INSULIN GLARGINE 100unit/ml INJECTION SQ SCH ×2 (08:22→21:30)
[2016-12-16] MEDS: INSULIN ASPART 100unit/ml INJECTION SQ SCH ×3 (08:23→17:38)
[2016-12-16] MEDS: PredniSONE 5 MG TABLET PO SCH (08:23)
[2016-12-16] MEDS: GABAPENTIN 300 MG CAPSULE PO SCH ×3 (08:24→21:13)
[2016-12-16] MEDS: GUAIFENESIN LA 600 MG TABLET PO SCH ×2 (08:24→21:13)
[2016-12-16] MEDS: LISINOPRIL 20 MG TABLET PO SCH (08:24)
[2016-12-16] MEDS: BENZONATATE 100 MG CAPSULE PO SCH ×3 (08:24→21:14)
[2016-12-16] MEDS: DULOXETINE 60 MG CAPSULE PO SCH (08:24)
[2016-12-16] MEDS: METFORMIN 1,000 MG TABLET PO SCH ×2 (08:24→17:38)
[2016-12-16] MEDS: ARIPiprazole 15 MG TABLET PO SCH (08:24)
[2016-12-16] MEDS: FLECAINIDE 50 MG TABLET PO SCH ×2 (08:24→21:14)
--- NOTE | 2016-12-16 13:36 | Cardiology Progress Note ---
Subjective Principal diagnosis: COPD <Giana Velazquez 12/16/16 13:36> Interval history: CC: AFIB Patient sitting up in bed this AM. Appears in good spirits. States she is going well and ready to go home. States she is currently down to 2L of O2 per NC. Con' ts to deny any CP, palpitations, increased SOA, N/V and/or diaphoresis. <Giana Velazquez 12/16/16 13:54> Exam Vital signs: Temperature 97.2 F 12/17/16 11:27 Pulse Rate 108 H 12/17/16 13:20 Respiratory Rate 16 12/17/16 11:49 Blood Pressure 141/81 H 12/17/16 11:27 Pulse Oximetry 93 12/17/16 11:27 Oxygen Delivery Method Room Air Oxygen Flow Rate 1 <Phill Nicholas - 12/19/16 12:50> Temperature 97.8 F 12/16/16 11:00 Pulse Rate 86 12/16/16 11:00 Respiratory Rate 13 12/16/16 11:00 Blood Pressure 134/72 12/16/16 11:00 Pulse Oximetry 91 12/16/16 11:00 Oxygen Delivery Method Nasal Cannula Oxygen Flow Rate 2 12/16/16 03:56 12/16/16 03:56 Type of Exam(s): XR chest 2V Reason for Exam(s): COPD Indication: COPD PROCEDURE: XR chest 2V: Encounter: Initial Comparison: Portable chest, 12/10/2016 Findings: Two views of the chest are submitted. The lungs are mildly hyperexpanded consistent with COPD but clear of confluent infiltrate. The heart is unenlarged, there is no pulmonary vascular engorgement, there is no tracheal deviation, and the pleural spaces are clear. Bony structures intact. Monitor leads overlie the chest. Impression: Findings suggestive of some element of COPD but no acute chest disease is suspected. <Giana Velazquez 12/16/16 14:09> - Constitutional no acute distress, obese, cooperative <Giana Velazquez 12/16/16 13:54> - Routine HEENT Exam Head: Present: normocephalic <Giana Velazquez 12/16/16 13:54> Eye: Present: EOMI <Giana Velazquez 12/16/16 13:54> ENT: Present: mucous membranes moist <Giana Velazquez 12/16/16 13:54> - Routine Neck Exam Absent: JVD, carotid bruit, lymphadenopathy <EctonGiana 12/16/16 13:54> - Routine Respiratory Exam Present: dyspnea, decreased breath sounds. Absent: wheezes <EctonGiana 12/16/16 13:54> Comments: Lung sounds coarse throughout with auscultation <Giana Velazquez 12/16/16 14:01> - Routine Cardiovascular Exam Present: RRR, no murmur. Absent: rubs, JVD <EctGiana moon 12/16/16 14:01> - Routine Abdominal Exam Present: soft, normoactive bowel sounds, non tender <LindaonGiana 12/16/16 14:01> - Routine Extremities Exam Present: edema, non tender, full ROM, pulses intact <Giana Velazquez 12/16/16 14:01> - Routine Skin Exam Present: intact, dry, warm. Absent: erythema, wounds, rash <Giana Velazquez 12/16/16 14:01> - Routine Neurological Exam Present: alert, oriented X3 <Giana Velazquez 12/16/16 14:01> - Routine Psychiatric Exam Present: normal affect, normal thought process <Giana Velazquez 12/16/16 14:01 > Progress Note-A&P (1) Atrial fibrillation with rapid ventricular response Status: Acute (2) Acute respiratory failure with hypoxia Status: Acute (3) COPD exacerbation Problem details: Doing well on tapering steroids. Status: Acute (4) Acute bronchitis Status: Acute (5) Essential (primary) hypertension Problem details: Good control. Status: Chronic (6) Obstructive sleep apnea Status: Chronic <ShitalmilenaShadPhill - 12/19/16 12:50> (1) Atrial fibrillation with rapid ventricular response Status: Acute Assessment and plan: NSR, QT/Qtc 313/362. Con't flecainide 50mg BID. Xarelto for anticoagulation. (2) Acute respiratory failure with hypoxia Status: Resolved Assessment and plan: O2 2L per NC. Q4H NEB. PO steroids. Attending managing. (3) COPD exacerbation Status: Acute Assessment and plan: Chronic O2, Q4H neb and PO steroids. Attending managing. (4) Acute bronchitis Status: Resolved (5) Essential (primary) hypertension Status: Chronic Assessment and plan: BP con't to improve with increased Lisinopril 20mg daily. (6) Obstructive sleep apnea Status: Chronic <Giana Velazquez 12/17/16 13:08> - Time Spent With Patient Total time spent is greater than 50% in coordination of care (as documented) at patient's floor/unit and/or counseling patient: <Phill Nicholas 12/19/16 12:50> Total time spent is greater than 50% in coordination of care (as documented) at patient's floor/unit and/or counseling patient: <Giana Velazquez 12/16/16 13:36> less than 15 minutes <Giana Velazquez 12/17/16 13:16> - Attestation Attestation Narrative: Recommendation After examining the patient I agree with the above assessment. I am involved in the formulation of the patient's plan of care. <Phill Nicholas 12/19/16 12:38> Sepsis Assessment - Evaluation Sepsis screening result: No Definite Risk <Giana Velazquez 12/16/16 13:36> Hospital Course Summary Disclaimer: The visit summary below is not to be considered part of the above Progress Note. <Phill Nicholas 12/19/16 12:50> The visit summary below is not to be considered part of the above Progress Note. <Giana Velazquez 12/16/16 13:36> Hospital Course: 12/08/2016 Impression Acute hypoxic respiratory failure COPD exacerbation Obstructive sleep apnea Acute bronchitis Type 2 diabetes mellitus-poorly controlled Hypertension Hypercalcemia Presyncope-possible dehydration Schizophrenia with anxiety Plan Admit as inpatient to CCU for close monitoring with COPD exacerbation and high oxygen needs. Continue breathing treatments, supplemental oxygen, and Solu- Medrol 125 mg IV every 6 hours. Rocephin 1 g IV daily start today. Repeat chest x-ray tomorrow. Sputum for Gram stain, culture and sensitivity. Viral respiratory swab. Monitor Accu-Cheks and give usual home insulin. May need supplemental insulin. Reglan as needed for nausea Lovenox and SCDs for DVT prophylaxis Continue home PPI. We'll give 1 L of IV fluids for dehydration with hypercalcemia and recheck in the morning Greater than 1 hour time spent seeing and evaluating the patient in determining care plan. 12/09/2016 Impression Acute hypoxic respiratory failure-still requiring high flow oxygen at approximately 7 L with O2 sats 88-90% COPD exacerbation-improving symptomatically Obstructive sleep apnea Acute bronchitis-rhinovirus positive Type 2 diabetes mellitus-poorly controlled Hypertension Hypercalcemia-resolved Presyncope-possible dehydration-improved but not resolved Schizophrenia with anxiety-mood and anxiety is better today Right lower extremity edema and pain, rule out DVT Plan Regarding acute hypoxic respiratory failure we'll continue breathing treatments , steroids and supplemental oxygen. Continue CPAP at night. Increase activity as tolerated Restart metformin and check hemoglobin A1c regarding diabetes. Give sliding scale insulin DC IV fluids 1 current bag is empty Continue Rocephin for now for COPD exacerbation Restart lisinopril for hypertension. Continue off hydrochlorothiazide due to the patient's lightheadedness with standing Venous Doppler of the right lower extremity to rule out DVT Repeat CBC and basic metabolic profile tomorrow Possible transfer later today if respiratory status is stable to improving 12/11/16 10:30 Cardiology RVR: RATE 110-140S. Onest 0330 TODAY. Continue Cardizem Drip AT 15MG/HR, Add Amiodarone bolus and drip to attempt conversion. Digoxin 500mcg IV X1 for rate control. Check Mag and serial troponin. Echo pending. Increase Lovenox to 1mg/kg SQ BID for stroke prevention. If does not convert plan DCCV tomorrow afternoon. 12/11/2016 Impression A. fib with RVR Acute hypoxic respiratory failure-still requiring high flow oxygen at approximately 7.5 L with O2 sats 88-90% COPD exacerbation- Obstructive sleep apnea-chronically on CPAP with 2 L of oxygen at night Acute bronchitis-rhinovirus positive Type 2 diabetes mellitus-poorly controlled Hypertension Dehydration -resolved Hypercalcemia-mild Presyncope-improving Schizophrenia with anxiety-doing okay Right lower extremity [id number] Doppler yesterday negative for DVT Plan Dr. Nicholas was consulted regarding A. fib with RVR. Amiodarone drip is being started. The patient was placed on full dose Lovenox. Serial cardiac enzymes have been ordered. Albuterol discontinued and Xopenex started Decrease IV steroids. Continue Acapella. Appreciate Dr. Mcmahan's consult. Echocardiogram pending CBC and basic metabolic profile tomorrow. 12/12/16 10:45 Cardiology Converted NSR last night: RATE 80's. Cardizem & amio d/c'd. Started Flecainide 50mg PO BID. D/c'd lovenox today and started xarelto for prophylaxis. BP elevated, increased lisinopril to 20mg daily. Lab WNL with Mag 2.0, TSH 0.58. Troponin WNL. ECHO 12/11/16: EF 75%, Pulm systolic pressure 33. 12/13/16 0900 Cardiology: EKG NSR 78, Qt/Nys=115/375. Serial troponins were all negative. Con't Flecainide 50mg PO BId. con't statin. Con't Xarelto for prophylaxis. BP still elevated. 1st dose of increased lisinopril given this AM. Added PRN hydralazine. Monitor. Lab remains stable. <Giana Velazquez R - 12/16/16 13:36>
--- NOTE | 2016-12-16 16:31 | Progress Note ---
Subjective: The patient was seen 1510. The patient reports doing well and is off oxygen. She slept well during the night. Her appetite is good. She has had no nausea or vomiting. Sugars still tend to run low. Denies fevers, chills, sweats. Denies sore throat, shortness of breath, dyspnea on exertion, occasionally productive cough. Objective Vital signs: Temperature 97.9 F 12/16/16 15:23 Pulse Rate 98 12/16/16 16:12 Respiratory Rate 20 12/16/16 15:23 Blood Pressure 134/68 12/16/16 15:23 Pulse Oximetry 92 12/16/16 16:12 Oxygen Delivery Method Nasal Cannula Oxygen Flow Rate 1 Weight: 239 lb 10.279 oz - Additional findings Additional findings: In general, the patient is alert and oriented 3, cooperative with exam, and in no respiratory distress. HEENT: Head is atraumatic, normocephalic, no conjunctival petechiae, no oral thrush, mucous membranes are moist and pink. Lungs: Clear to auscultation without wheezes, crackles or rhonchi CV: Regular rate and rhythm without murmur Abdomen: Soft, nontender, bowel sounds are present, there is no guarding no rebound. Extremities: No clubbing, no cyanosis, no edema. Skin: Warm and dry no sign of rash Neuro: Patient is alert Results - Labs CBC & Chem 7: 12/16/16 03:56 12/16/16 03:56 Labs: Selected Entries 12/16/16 10:27 12/16/16 11:00 12/16/16 15:23 Blood Pressure 134/68 Oxygen Flow Rate 3 2 12/16/16 15:24 Blood Pressure Oxygen Flow Rate 1 Laboratory Tests 12/11/16 12/12/16 12/13/16 04:41 03:59 05:03 Glucose 176 H 187 H 75 Glucometer 12/14/16 12/14/16 12/15/16 12:57 19:49 01:15 Glucose 47 L* Glucometer 144 32 12/15/16 12/15/16 12/15/16 06:13 06:35 06:58 Glucose Glucometer 57 58 72 12/15/16 12/15/16 12/15/16 08:00 09:59 14:15 Glucose 98 Glucometer 108 159 12/15/16 12/15/1617 19:52 23:54 00:31 Glucose Glucometer 101 46 101 12/16/16 12/16/16 12/16/16 03:56 05:58 06:24 Glucose 74 Glucometer 47 79 12/16/16 12/16/16 10:09 14:42 Glucose Glucometer 145 143 Microbiology Results: Microbiology 12/08/16 21:05 Sputum, Expectorated Gram Stain - Final 12/08/16 21:05 Sputum, Expectorated Sputum Culture - Final Normal Respiratory Vickie Assessment and Plan (1) Atrial fibrillation with rapid ventricular response Current visit: Yes Status: Acute (2) Acute respiratory failure with hypoxia Current visit: Yes Status: Resolved (3) COPD exacerbation Current visit: Yes Status: Acute (4) Acute bronchitis Current visit: Yes Status: Resolved (5) Essential (primary) hypertension Current visit: Yes Status: Chronic (6) Type 2 diabetes mellitus without complications Current visit: Yes Status: Chronic (7) Obstructive sleep apnea Current visit: Yes Status: Chronic Assessment and Plan: *Type 2 diabetes mellitus, poor control-hypoglycemic episodes in the last few days have required decreasing her insulin Continue metformin 1000 mg po bid Yesterday adjusted her Lantus to BID for better absorption and decreased her daily dose from 135 to 120 units. Short acting insulin decreased to 30 units with meals. Afib with RVR, now rate controlled. Dr. Nicholas following. Mailecainipresley Xarelto. Monitor EKG/Tele in light of antipsychotics needed. *Acute hypoxic respiratory failure/COPD Exacerbation/MARGARITA/OHS *Obstructive sleep apnea-chronically on CPAP with 2 L of oxygen at night *Acute bronchitis-rhinovirus positive Dr. Mcmahan following. On prednisone taper, currently on 40 mg by mouth daily *Leukocytosis secondary to steroids Continue Xopenex/Ipratropium. When prednisone is tapered, consider Tdap, pneumovac 13 and 23 *Hypertension RAMY (SCr ok). Dehydration/Presyncope/Hypercalcemia- improving. Schizophrenia with anxiety-doing okay-continue home medications. Overall, doing well. Continue supportive therapy. She is currently off O2, may be able to go home tomorrow for blood sugars allow. The patient was discussed with nursing, care coordination and Dr. Mcmahan. Sepsis Assessment - Evaluation Sepsis screening result: No Definite Risk Hospital Course Summary Disclaimer: The visit summary below is not to be considered part of the above Progress Note. Hospital Course: 12/08/2016 Impression Acute hypoxic respiratory failure COPD exacerbation Obstructive sleep apnea Acute bronchitis Type 2 diabetes mellitus-poorly controlled Hypertension Hypercalcemia Presyncope-possible dehydration Schizophrenia with anxiety Plan Admit as inpatient to CCU for close monitoring with COPD exacerbation and high oxygen needs. Continue breathing treatments, supplemental oxygen, and Solu- Medrol 125 mg IV every 6 hours. Rocephin 1 g IV daily start today. Repeat chest x-ray tomorrow. Sputum for Gram stain, culture and sensitivity. Viral respiratory swab. Monitor Accu-Cheks and give usual home insulin. May need supplemental insulin. Reglan as needed for nausea Lovenox and SCDs for DVT prophylaxis Continue home PPI. We'll give 1 L of IV fluids for dehydration with hypercalcemia and recheck in the morning Greater than 1 hour time spent seeing and evaluating the patient in determining care plan. 12/09/2016 Impression Acute hypoxic respiratory failure-still requiring high flow oxygen at approximately 7 L with O2 sats 88-90% COPD exacerbation-improving symptomatically Obstructive sleep apnea Acute bronchitis-rhinovirus positive Type 2 diabetes mellitus-poorly controlled Hypertension Hypercalcemia-resolved Presyncope-possible dehydration-improved but not resolved Schizophrenia with anxiety-mood and anxiety is better today Right lower extremity edema and pain, rule out DVT Plan Regarding acute hypoxic respiratory failure we'll continue breathing treatments , steroids and supplemental oxygen. Continue CPAP at night. Increase activity as tolerated Restart metformin and check hemoglobin A1c regarding diabetes. Give sliding scale insulin DC IV fluids 1 current bag is empty Continue Rocephin for now for COPD exacerbation Restart lisinopril for hypertension. Continue off hydrochlorothiazide due to the patient's lightheadedness with standing Venous Doppler of the right lower extremity to rule out DVT Repeat CBC and basic metabolic profile tomorrow Possible transfer later today if respiratory status is stable to improving 12/11/16 10:30 Cardiology RVR: RATE 110-140S. Onest 0330 TODAY. Continue Cardizem Drip AT 15MG/HR, Add Amiodarone bolus and drip to attempt conversion. Digoxin 500mcg IV X1 for rate control. Check Mag and serial troponin. Echo pending. Increase Lovenox to 1mg/kg SQ BID for stroke prevention. If does not convert plan DCCV tomorrow afternoon. 12/11/2016 Impression A. fib with RVR Acute hypoxic respiratory failure-still requiring high flow oxygen at approximately 7.5 L with O2 sats 88-90% COPD exacerbation- Obstructive sleep apnea-chronically on CPAP with 2 L of oxygen at night Acute bronchitis-rhinovirus positive Type 2 diabetes mellitus-poorly controlled Hypertension Dehydration -resolved Hypercalcemia-mild Presyncope-improving Schizophrenia with anxiety-doing okay Right lower extremity [id number] Doppler yesterday negative for DVT Plan Dr. Nicholas was consulted regarding A. fib with RVR. Amiodarone drip is being started. The patient was placed on full dose Lovenox. Serial cardiac enzymes have been ordered. Albuterol discontinued and Xopenex started Decrease IV steroids. Continue Acapella. Appreciate Dr. Mcmahan's consult. Echocardiogram pending CBC and basic metabolic profile tomorrow. 12/12/16 10:45 Cardiology Converted NSR last night: RATE 80's. Cardizem & amio d/c'd. Started Flecainide 50mg PO BID. D/c'd lovenox today and started xarelto for prophylaxis. BP elevated, increased lisinopril to 20mg daily. Lab WNL with Mag 2.0, TSH 0.58. Troponin WNL. ECHO 12/11/16: EF 75%, Pulm systolic pressure 33. 12/13/16 0900 Cardiology: EKG NSR 78, Qt/Cbj=335/375. Serial troponins were all negative. Con't Flecainide 50mg PO BId. con't statin. Con't Xarelto for prophylaxis. BP still elevated. 1st dose of increased lisinopril given this AM. Added PRN hydralazine. Monitor. Lab remains stable. 12/14/16 16:34 have independently evaluated and examined this patient. I reviewed the chart, the patient's history, and the MANAGER OF APPLICATION DEVELOPMENT/PA's documented findings as above. We discussed and formulated the assessment and plan as above with additions as below. Discussed the patient's diabetes with her. She reports diabetes coordinator has been in to speak with her several times. She does report that she likes sweets and she does eat candy fairly frequently. She acknowledges that the coordinator advised her to limit it to small portions of sweets once a week. Discussed the difficulties of adjusting the patient's insulin based on her adherence to her diet at home. We'll continue to make further adjustments while in the hospital. Patient is currently on steroids which further complicates her glucose control. Ideally we will be able to get her home in the next few days. She may require home O2 as well. 12/15/16 16:35 Impression *A. fib with RVR, now rate controlled. Dr. Nicholas following. Flecainide, Xarelto. Monitor EKG/Tele in light of antipsychotics needed. *Acute hypoxic respiratory failure/COPD Exacerbation/MARGARITA/OHS *Obstructive sleep apnea-chronically on CPAP with 2 L of oxygen at night *Acute bronchitis-rhinovirus positive Dr. Mcmahan following. Steroids changed to PO. Will adjust insulin down a bit as BG will drop. Expect leukocytosis will improve as steroids decline. Continue Xopenex/Ipratropium. When prednisone is tapered, consider Tdap, pneumovac and *Type 2 diabetes mellitus, poor control Continue metformin. Will change Lantus to BID for better absorption. Decrease daily dose from 135 to 120 units. Short acting insulin decreased to 40 units with meals. *Hypertension RAMY (SCr ok). Dehydration/Presyncope/Hypercalcemia- improving. Schizophrenia with anxiety-doing okay-continue home medications. Overall, doing well. Continue supportive therapy. Please note the above data is from December 15. The following is the assessment and plan from December 14 Assessment and plan acute exacerbation of COPD with rhinovirus on steroid taper patient has been changed to by mouth prednisone 40 mg daily this a.m., we'll continue to observe and continue oxygen atrial fibrillation with rapid ventricular response (converted) managed by cardiology Hypertension responding to medications Diabetes with hypoglycemic episode today Have adjusted insulin NovoLog 40 units subcutaneous with meals from 50 units, have decreased Lantus at night to 135 units subcutaneous daily at bedtime 12/16/16 16:43 Type 2 diabetes mellitus, poor control-hypoglycemic episodes in the last few days have required decreasing her insulin Continue metformin 1000 mg po bid Yesterday adjusted her Lantus to BID for better absorption and decreased her daily dose from 135 to 120 units. Short acting insulin decreased to 30 units with meals. Afib with RVR, now rate controlled. Dr. Nicholas following. Flecainide, Xarelto. Monitor EKG/Tele in light of antipsychotics needed. *Acute hypoxic respiratory failure/COPD Exacerbation/MARGARITA/OHS *Obstructive sleep apnea-chronically on CPAP with 2 L of oxygen at night *Acute bronchitis-rhinovirus positive Dr. Mcmahan following. On prednisone taper, currently on 40 mg by mouth daily *Leukocytosis secondary to steroids Continue Xopenex/Ipratropium. When prednisone is tapered, consider Tdap, pneumovac 13 and 23 *Hypertension RAMY (SCr ok). Dehydration/Presyncope/Hypercalcemia- improving. Schizophrenia with anxiety-doing okay-continue home medications. Overall, doing well. Continue supportive therapy. She is currently off O2, may be able to go home tomorrow for blood sugars allow. The patient was discussed with nursing, care coordination and Dr. Mcmahan.
--- NOTE | 2016-12-16 16:35 | Pulmonology Progress Note ---
Subjective Principal diagnosis: COPD Interval history: Feeling well. up to chair. On 1 liter O2 now. Some yellow sputum production. Exam Vital signs: Temperature 97.9 F 12/16/16 15:23 Pulse Rate 98 12/16/16 16:12 Respiratory Rate 20 12/16/16 15:23 Blood Pressure 134/68 12/16/16 15:23 Pulse Oximetry 92 12/16/16 16:12 Oxygen Delivery Method Nasal Cannula Oxygen Flow Rate 1 - Constitutional no acute distress, obese - Routine HEENT Exam Head: Present: normocephalic, atraumatic, cushingoid faces Eye: Present: EOMI, PERRL - Routine Respiratory Exam Present: decreased breath sounds, wheezes Comments: very slight wheeze - Routine Cardiovascular Exam Present: RRR Progress Note-A&P (1) Acute respiratory failure with hypoxia Status: Acute Assessment and plan: improving. continue prednisone taper, O2 as needed. may need to d/c with home O2 and I can manage as outpatient. Current Visit: Yes (2) COPD exacerbation Status: Acute Assessment and plan: neblized albuterol and ipratropium bromide qid and prn Current Visit: Yes (3) Atrial fibrillation with rapid ventricular response Status: Acute Current Visit: Yes (4) Obstructive sleep apnea Status: Chronic Current Visit: Yes - Time Spent With Patient Total time spent is greater than 50% in coordination of care (as documented) at patient's floor/unit and/or counseling patient: less than 15 minutes Sepsis Assessment - Evaluation Sepsis screening result: No Definite Risk
[2016-12-16] MEDS: RIVAROXABAN 20 MG TABLET PO SCH (17:38)
[2016-12-16] MEDS: ATORVASTATIN 20 MG TABLET PO SCH (21:14)
[2016-12-17] MEDS: Ipratropium Inh NEB 0.02% (0.5mg/2.5ml) AEROSOL SCH ×3 (03:50→11:48)
[2016-12-17] MEDS: OMEPRAZOLE 20 MG CAPSULE PO SCH (06:27)
[2016-12-17] MEDS: PredniSONE 5 MG TABLET PO SCH (08:53)
[2016-12-17] MEDS: GUAIFENESIN LA 600 MG TABLET PO SCH (08:54)
[2016-12-17] MEDS: DULOXETINE 60 MG CAPSULE PO SCH (08:54)
[2016-12-17] MEDS: ARIPiprazole 15 MG TABLET PO SCH (08:54)
[2016-12-17] MEDS: METFORMIN 1,000 MG TABLET PO SCH (08:54)
[2016-12-17] MEDS: LISINOPRIL 20 MG TABLET PO SCH (08:54)
[2016-12-17] MEDS: GABAPENTIN 300 MG CAPSULE PO SCH ×2 (08:54→15:33)
[2016-12-17] MEDS: BENZONATATE 100 MG CAPSULE PO SCH ×2 (08:54→15:33)
[2016-12-17] MEDS: FLECAINIDE 50 MG TABLET PO SCH (08:54)
[2016-12-17] MEDS: INSULIN ASPART 100unit/ml INJECTION SQ SCH ×2 (08:55→11:59)
[2016-12-17] MEDS: INSULIN GLARGINE 100unit/ml INJECTION SQ SCH (08:57)
[2016-12-17 11:28] VITALS: BP 141/81; TEMP 97.2; O2SAT 93
[2016-12-17 12:00] VITALS: RESP 16
--- NOTE | 2016-12-17 13:08 | Discharge Instructions ---
Discharge Plan - Med Rec/Dispo Referrals/Follow Up: Zhang Clement DO [Family Provider] - 1 Week Phill Nicholas MD [Physician] - 1 Month Aaron cMmahan MD [Physician] - 2 Weeks (hospital f/u with PFTs) Radha Instructions: COPD (Chronic Obstructive Pulmonary Disease) (GEN) Prescriptions: [place] [Mucinex LA] 1,200 mg PO BID #120 tablet Nystatin Powder [Mycostatin] 1 applic TP BID bottle predniSONE [Prednisone] 40 mg PO DAILY #12 tablet Benzonatate [Tessalon Perles] 100 mg PO TID PRN #20 capsule PRN Reason: Cough Flecainide [Tambocor] 50 mg PO Q12HR #60 tablet Lisinopril [Prinivil] 20 mg PO DAILY #30 tablet Rivaroxaban [Xarelto] 20 mg PO WS #30 tablet Continue Tiotropium [place] [Spiriva] 1 cap ORAL INH DAILY PRN PRN Reason: Prn Orders Ipratropium/Albuterol Sulfate [Iprat-Albut 0.5-3(2.5) mg/3 ml] 3 ml AEROSOL RTQID PRN PRN Reason: Prn Orders Insulin Degludec [Tresiba Flextouch U-200] 150 unit SQ HS Insulin Aspart [Novolog Flexpen] 50 unit SQ TIDWM Duloxetine HCl [Cymbalta] 60 mg PO DAILY Naproxen 250 mg PO TID Atorvastatin Calcium 20 mg PO DAILY Ipratropium/Albuterol Sulfate [Combivent Respimat Inhal [place]] 1 puff PO QID PRN #0 PRN Reason: SHORTNESS OF AIR ARIPiprazole [Aripiprazole] 15 mg PO DAILY Albuterol Inhaler [Ventolin Hfa] 1 puff ORAL INH Q4H PRN PRN Reason: Prn Orders Metformin HCl 1,000 mg PO BIDWM hydroCHLOROthiazide [Hydrochlorothiazide] 12.5 mg PO DAILY #15 tab omeprazole 20 mg capsule,delayed release 20 mg PO DAILY #90 cap gabapentin 300 mg capsule 300 mg PO TID #270 cap Discontinued Lisinopril [Prinivil] 5 mg PO DAILY - Disposition 01 Discharged Home, Self-Care
--- NOTE | 2016-12-17 13:19 | Cardiology Progress Note ---
Subjective Principal diagnosis: COPD <Giana Velazquez 12/17/16 13:21> Interval history: CC: AFIB Pt OOB sitting in chair this AM. Off O2. Very excited and states she is going home this afternoon. States she is breathing well. Denies any CP, palpitations, SOA, N/V and/or diaphoresis. <Giana Velazquez 12/17/16 13:21> Exam Vital signs: Temperature 97.2 F 12/17/16 11:27 Pulse Rate 108 H 12/17/16 13:20 Respiratory Rate 16 12/17/16 11:49 Blood Pressure 141/81 H 12/17/16 11:27 Pulse Oximetry 93 12/17/16 11:27 Oxygen Delivery Method Room Air Oxygen Flow Rate 1 <Phill Nicholas - 12/19/16 12:50> Temperature 97.2 F 12/17/16 11:27 Pulse Rate 86 12/17/16 11:27 Respiratory Rate 16 12/17/16 11:49 Blood Pressure 141/81 H 12/17/16 11:27 Pulse Oximetry 93 12/17/16 11:27 Oxygen Delivery Method Room Air Oxygen Flow Rate 1 12/16/16 03:56 12/16/16 03:56 <Giana Velazquez 12/17/16 13:21> - Constitutional no acute distress, obese, cooperative <Giana Velazquez 12/17/16 13:21> - Routine HEENT Exam Head: Present: normocephalic <Giana Velazquez 12/17/16 13:21> Eye: Present: EOMI <Giana Velazquez 12/17/16 13:21> ENT: Present: mucous membranes moist <Giana Velazquez 12/17/16 13:21> - Routine Neck Exam Absent: JVD, carotid bruit, lymphadenopathy <Giana Velazquez 12/17/16 13:21> - Routine Cardiovascular Exam Present: RRR, no murmur. Absent: gallop, rubs, JVD <Giana Velazquez 12/17/16 13:21> - Routine Extremities Exam Present: no edema, pulses intact <Giana Velazquez 12/17/16 13:21> - Routine Skin Exam Present: intact, warm. Absent: erythema, wounds, rash <Giana Velazquez 13:21> - Routine Neurological Exam Present: alert, oriented X3, moving all extremities <Giana Velazquez 12/17/16 13:21> - Routine Psychiatric Exam Present: normal affect, normal thought process, cooperative <Giana Velazquez 12/17/16 13:21> Progress Note-A&P (1) Atrial fibrillation with rapid ventricular response Status: Acute (2) Acute respiratory failure with hypoxia Status: Acute (3) COPD exacerbation Problem details: Doing well on tapering steroids. Status: Acute (4) Acute bronchitis Status: Acute (5) Essential (primary) hypertension Problem details: Good control. Status: Chronic (6) Obstructive sleep apnea Status: Chronic <Phill Nicholas 12/19/16 12:50> (1) Atrial fibrillation with rapid ventricular response Status: Acute Assessment and plan: EKG NSR, QT/Qtc 364/387. d/c home on Flecinide 50mg BID and xarelto. F/u in office in 2 weeks with EKG. (2) Acute respiratory failure with hypoxia Status: Resolved Assessment and plan: Improved. Con't tx per attending. (3) COPD exacerbation Status: Acute Assessment and plan: Improved, on RA. Con't tx per attending. (4) Acute bronchitis Status: Resolved (5) Essential (primary) hypertension Status: Chronic Assessment and plan: BP improved today, SBP 120-130's. BUN25 & weather analyst 0.7, d/c home on lisinopril 20mg daily. (6) Obstructive sleep apnea Status: Chronic Assessment and plan: Bipap at HS. <Giana Velazquez 12/17/16 13:22> - Time Spent With Patient Total time spent is greater than 50% in coordination of care (as documented) at patient's floor/unit and/or counseling patient: <Phill Nicholas 12/19/16 12:50> Total time spent is greater than 50% in coordination of care (as documented) at patient's floor/unit and/or counseling patient: <Giana Velazquez 12/17/16 13:21> less than 15 minutes <Giana Velazquez 12/17/16 13:29> - Attestation Attestation Narrative: Recommendation After examining the patient I agree with the above assessment. I am involved in the formulation of the patient's plan of care. <Phill Nicholas - 12/19/16 12:38> Sepsis Assessment - Evaluation Sepsis screening result: No Definite Risk <Giana Velazquez - 12/17/16 13:21> Hospital Course Summary Disclaimer: The visit summary below is not to be considered part of the above Progress Note. <Phill Nicholas - 12/19/16 12:50> The visit summary below is not to be considered part of the above Progress Note. <Giana Velazquez - 12/17/16 13:21> Hospital Course: 12/08/2016 Impression Acute hypoxic respiratory failure COPD exacerbation Obstructive sleep apnea Acute bronchitis Type 2 diabetes mellitus-poorly controlled Hypertension Hypercalcemia Presyncope-possible dehydration Schizophrenia with anxiety Plan Admit as inpatient to CCU for close monitoring with COPD exacerbation and high oxygen needs. Continue breathing treatments, supplemental oxygen, and Solu- Medrol 125 mg IV every 6 hours. Rocephin 1 g IV daily start today. Repeat chest x-ray tomorrow. Sputum for Gram stain, culture and sensitivity. Viral respiratory swab. Monitor Accu-Cheks and give usual home insulin. May need supplemental insulin. Reglan as needed for nausea Lovenox and SCDs for DVT prophylaxis Continue home PPI. We'll give 1 L of IV fluids for dehydration with hypercalcemia and recheck in the morning Greater than 1 hour time spent seeing and evaluating the patient in determining care plan. 12/09/2016 Impression Acute hypoxic respiratory failure-still requiring high flow oxygen at approximately 7 L with O2 sats 88-90% COPD exacerbation-improving symptomatically Obstructive sleep apnea Acute bronchitis-rhinovirus positive Type 2 diabetes mellitus-poorly controlled Hypertension Hypercalcemia-resolved Presyncope-possible dehydration-improved but not resolved Schizophrenia with anxiety-mood and anxiety is better today Right lower extremity edema and pain, rule out DVT Plan Regarding acute hypoxic respiratory failure we'll continue breathing treatments , steroids and supplemental oxygen. Continue CPAP at night. Increase activity as tolerated Restart metformin and check hemoglobin A1c regarding diabetes. Give sliding scale insulin DC IV fluids 1 current bag is empty Continue Rocephin for now for COPD exacerbation Restart lisinopril for hypertension. Continue off hydrochlorothiazide due to the patient's lightheadedness with standing Venous Doppler of the right lower extremity to rule out DVT Repeat CBC and basic metabolic profile tomorrow Possible transfer later today if respiratory status is stable to improving 12/11/16 10:30 Cardiology RVR: RATE 110-140S. Onest 0330 TODAY. Continue Cardizem Drip AT 15MG/HR, Add Amiodarone bolus and drip to attempt conversion. Digoxin 500mcg IV X1 for rate control. Check Mag and serial troponin. Echo pending. Increase Lovenox to 1mg/kg SQ BID for stroke prevention. If does not convert plan DCCV tomorrow afternoon. 12/11/2016 Impression A. fib with RVR Acute hypoxic respiratory failure-still requiring high flow oxygen at approximately 7.5 L with O2 sats 88-90% COPD exacerbation- Obstructive sleep apnea-chronically on CPAP with 2 L of oxygen at night Acute bronchitis-rhinovirus positive Type 2 diabetes mellitus-poorly controlled Hypertension Dehydration -resolved Hypercalcemia-mild Presyncope-improving Schizophrenia with anxiety-doing okay Right lower extremity [id number] Doppler yesterday negative for DVT Plan Dr. Nicholas was consulted regarding A. fib with RVR. Amiodarone drip is being started. The patient was placed on full dose Lovenox. Serial cardiac enzymes have been ordered. Albuterol discontinued and Xopenex started Decrease IV steroids. Continue Acapella. Appreciate Dr. Mcmahan's consult. Echocardiogram pending CBC and basic metabolic profile tomorrow. 12/12/16 10:45 Cardiology Converted NSR last night: RATE 80's. Cardizem & amio d/c'd. Started Flecainide 50mg PO BID. D/c'd lovenox today and started xarelto for prophylaxis. BP elevated, increased lisinopril to 20mg daily. Lab WNL with Mag 2.0, TSH 0.58. Troponin WNL. ECHO 12/11/16: EF 75%, Pulm systolic pressure 33. 12/13/16 0900 Cardiology: EKG NSR 78, Qt/Prl=078/375. Serial troponins were all negative. Con't Flecainide 50mg PO BId. con't statin. Con't Xarelto for prophylaxis. BP still elevated. 1st dose of increased lisinopril given this AM. Added PRN hydralazine. Monitor. Lab remains stable. <[place],Giana R - 07/25/17 13:21>
[2016-12-17 13:35] VITALS: PULSE 108
--- NOTE | 2016-12-17 14:10 | Discharge Instructions ---
Discharge Plan - Med Rec/Dispo Referrals/Follow Up: Aaron Mcmahan MD [Physician] - 2 Weeks (hospital f/u with PFTs) Zhang Clement DO [Family Provider] - 1 Week Phill Nicholas MD [Physician] - 2 Weeks Radha Instructions: COPD (Chronic Obstructive Pulmonary Disease) (GEN) Prescriptions: New Guaifenesin LA [Mucinex LA] 1,200 mg PO BID #120 tablet Nystatin Powder [Mycostatin] 1 applic TP BID bottle predniSONE [Prednisone] 40 mg PO DAILY #12 tablet Benzonatate [Tessalon Perles] 100 mg PO TID PRN #20 capsule PRN Reason: Cough Flecainide [Tambocor] 50 mg PO Q12HR #60 tablet Lisinopril [Prinivil] 20 mg PO DAILY #30 tablet Rivaroxaban [Xarelto] 20 mg PO WS #30 tablet Continue Tiotropium [place] [Spiriva] 1 cap ORAL INH DAILY PRN PRN Reason: Prn Orders Ipratropium/Albuterol Sulfate [Iprat-Albut 0.5-3(2.5) mg/3 ml] 3 ml AEROSOL RTQID PRN PRN Reason: Prn Orders Insulin Degludec [Tresiba Flextouch U-200] 150 unit SQ HS Insulin Aspart [Novolog Flexpen] 50 unit SQ TIDWM Duloxetine HCl [Cymbalta] 60 mg PO DAILY Naproxen 250 mg PO TID Atorvastatin Calcium 20 mg PO DAILY Ipratropium/Albuterol Sulfate [Combivent Respimat Inhal [place]] 1 puff PO QID PRN #0 PRN Reason: SHORTNESS OF AIR ARIPiprazole [Aripiprazole] 15 mg PO DAILY Albuterol Inhaler [Ventolin Hfa] 1 puff ORAL INH Q4H PRN PRN Reason: Prn Orders Metformin HCl 1,000 mg PO BIDWM hydroCHLOROthiazide [Hydrochlorothiazide] 12.5 mg PO DAILY #15 tab omeprazole 20 mg capsule,delayed release 20 mg PO DAILY #90 cap gabapentin 300 mg capsule 300 mg PO TID #270 cap Discontinued Lisinopril [Prinivil] 5 mg PO DAILY - Disposition 01 Discharged Home, Self-Care
--- NOTE | 2016-12-17 14:31 | Discharge Summary ---
Discharge Information Date of admission: 12/08/16 18:58 Anticipated date of discharge: 12/17/16 Attending Physician: Meseret Casey MD Primary care physician: Zhang Clement DO Consults: Phill Nicholas John - Discharge Diagnosis (1) Acute respiratory failure with hypoxia Status: Acute (2) COPD exacerbation Problem Details: Doing well on tapering steroids. Status: Acute (3) Atrial fibrillation with rapid ventricular response Status: Acute (4) Acute bronchitis Qualifiers: Bronchitis organism: rhinovirus Qualified Code(s): J20.6 - Acute bronchitis due to rhinovirus Status: Acute (5) Essential (primary) hypertension Problem Details: Good control. Status: Chronic (6) Type 2 diabetes mellitus without complications Qualifiers: Diabetes mellitus pulmonary function technologist insulin use: with pulmonary function technologist use Qualified Code( s): E11.9 - Type 2 diabetes mellitus without complications; Z79.4 - correction ( current) use of insulin Status: Chronic (7) Obstructive sleep apnea Status: Chronic - Procedures Procedures: Echocardiogram on 12/11/16: Left atrial dimension is normal. Left ventricle end-diastolic dimension is normal. Left ventricle wall thickness is normal. LV systolic function is normal with ejection fraction of 75%. Right atrium is normal. Right ventricle is normal. Aortic root dimension is normal. Mitral annulus is calcified. Mitral valve leaflets are normal with trace of mitral regurgitation. Aortic valve appears to be normal. Tricuspid valve shows trace of tricuspid regurgitation with mild pulmonary hypertension with estimated pulmonary artery systolic pressure of 33. Pulmonary valve shows no pulmonary insufficiency. There is no pericardial effusion. IMPRESSION 1. Normal LV systolic function with ejection fraction of 75%. 2. Technically difficult study. 3. Mitral annulus calcification with trace of mitral regurgitation. 4. Trace of tricuspid regurgitation with estimated pulmonary artery systolic pressure of 33. Ambulatory oximetry on the date of discharge demonstrated oxygen saturation dropping to 86% on room air. 3 L supplemental oxygen required to maintain saturation greater than 90% with activity. - Laboratory Labs: Blood gas on admission: 7.38/59/72/35 - flow rate unclear Admission white count 12.1 with hemoglobin 15.1. Admission electrolytes notable only for CO2 32, blood sugar 260, calcium 10.5. A1c 10.8, TSH 0.58 on 12/09/16 12/16/16 03:56 12/16/16 03:56 - Microbiology Microbiology 12/08/16 respiratory viral panel-positive for rhinovirus 12/08/16 21:05 Sputum, Expectorated Gram Stain - Final 12/08/16 21:05 Sputum, Expectorated Sputum Culture - Final Normal Respiratory Oswaldo - Radiology Radiology: Chest x-ray on admission demonstrated no acute cardiopulmonary disease. Follow- up films on 12/09, 12/10, and 12/15 were unchanged although borderline cardiomegaly and COPD were read at varying times. Venous Doppler of right lower extremity on 12/09 was without evidence of DVT. History of Present Illness HPI: Patient is a pleasant 56-year-old female with history of COPD. She has obstructive sleep apnea and uses CPAP with 2 L at night. Otherwise, she does not use oxygen. She quit smoking last April. She states that 2 days ago she began to have increasing shortness of breath and increasing cough. She also feels lightheaded when she stands up and feels like she might pass out. She has not been eating or drinking well. She states she just "doesn't feel good". She has a mild headache. She has chronic low back pain. She denies any chest pain. She's been coughing up occasional phlegm which is blum colored. No blood in her phlegm. She has felt feverish but her temperature was not elevated. She's had some sweats but no chills. She has some rhinorrhea and sinus congestion but does not feel like she has a cold or allergies. She has some mild nausea but no abdominal pain, no vomiting, no diarrhea or constipation. She is urinating without difficulties. EMS was called secondary to her shortness of breath and she was found to be hypoxic and placed on nonrebreather mask and given 3 DuoNeb treatments and 125 mg of Solu-Medrol. In the emergency room she had a chest x-ray which showed no acute abnormalities. CBC reveals a mildly elevated white count of 12.1 with no significant left shift. Hemoglobin and platelets are normal. Calcium is mildly elevated at 10.5 and sodium was 145. Glucose is 260. VBG showed a pH of 7.38, PCO2 59, PO2 of 72. Blood cultures 2 were obtained. Currently the patient is still needing 6 L of oxygen per nasal cannula with O2 sat around 90%. She is being admitted to CCU for close observation with COPD exacerbation. Patient sees Dr. Clement for primary care. Hospital Course This is a general summary of the patient's hospital course. For more details refer to the complete medical record. Hospital course: Mrs. Smith was admitted to the intensive care unit for close monitoring of acute COPD exacerbation and high oxygen demands. She was initially on approximate 6-7 L of supplemental oxygen with borderline oxygen saturations. She was treated with high-dose IV steroids and Rocephin initially with aggressive breathing treatments per nebulizer. CPAP was continued per home regimen. Subsequently viral culture confirmed presence of rhinovirus and sputum culture grew out only normal oswaldo; antibiotics were discontinued after several days. Hypoxia persisted and the patient was seen in consultation by Dr. Mcmahan after several days. Acapella valve was added to her regimen and steroid taper initiated on 12/12. The patient's oxygenation gradually improved such that she was on room air at rest at discharge but she continued to desaturate with activities. 3 L supplemental oxygen was recommended with ambulation to maintain oxygen saturations above 90%. Anticipate that this will continue to improve post discharge and as she recovers from the acute exacerbation. Patient is to follow-up with Dr. Mcmahan in approximately 2 weeks at which time PFTs will be obtained. Following completion of prednisone patient should be considered for updated Pneumovax and Prevnar and possibly Tdap vaccinations to minimize future respiratory infections. Continued use of CPAP with oxygen as in the past recommended. On the second hospital day of venous Doppler was obtained to exclude DVT due to asymmetric edema; there was no evidence of clot. On the evening of 12/10 the patient developed atrial fibrillation with rapid ventricular response. Dr. Nicholas was consulted and the patient was started on an amiodarone drip and therapeutic Lovenox for anticoagulation. Serial cardiac enzymes were unremarkable. She was initially converted from albuterol to Xopenex. Echocardiogram was obtained and is as previously noted. The patient converted back to sinus rhythm within 48 hours after which amiodarone was discontinued and flecainide initiated. Xarelto was started for stroke prevention and therapeutic Lovenox discontinued. Patient was in sinus rhythm at discharge with plans to follow-up with Dr. Nicholas in approximately 2 weeks. Blood sugars were monitored throughout the hospitalization with development of hypoglycemia after resuming metformin and home insulin dosages while on a carb- controlled diet. Scheduled insulin doses were subsequently reduced from 135 units of long-acting insulin to 120 units with dose split at 60 units twice a day, and NovoLog decreased from 50 units 3 times a day to 30 units 3 times a day. With reduced insulin dosages hypoglycemia subsided. On the date of discharge the patient is scheduled for follow-up with Dr. Quinonez for long-term management of diabetes. She was discharged with her home dosages of insulin anticipating less rigorous dietary restrictions at home and further management of insulin by Dr. Quinonez. Blood pressure was moderately elevated throughout the hospitalization, lisinopril dose subsequently increased to 20 mg daily. The patient had minor hypercalcemia on admission with some fluctuation in total calcium level (9.7-11.0) throughout the hospital course but tendency to remain slightly high throughout the admission. Further outpatient evaluation may be indicated. On the date of discharge the patient reported that she felt good and was no longer wheezing. She continues to have cough productive of some purulent sputum. She's been ambulating without oxygen despite demonstrated hypoxia with activities. She was willing to wear oxygen at home after repeat ambulatory oximetry demonstrated saturation dropping to 86% on room air. Respirations were nonlabored with good airflow, breath sounds were clear at the time of my exam. Cardiac rhythm was regular with normal S1 and S2. There is trace lower extremity edema. Patient was felt stable for discharge today with plans to follow-up with Dr. Clement in one week for general reassessment and with Dr. Mcmahan and Cristopher in approximately 2 weeks. Medications were reviewed with the patient and prescription for nebulizer to permit continued use of nebulized therapies was provided. >30 minutes spent on patient care and discharge care coordination today on the date of discharge. -- Time spent with patient: discharge greater than 30 minutes Discharge Plan - Med Rec/Dispo Referrals/Follow Up: Phill Nicholas MD [Physician] - 2 Weeks (APPOITMENT ON 01/01 10AM. [phone]) Aaron Mcmahan MD [Physician] - 2 Weeks (hospital f/u with PFTs [facility] [phone] APPOITMENT ON 12/31 FOR PFT AT 9AM AT HOSPITAL, THEN DOCTOR AT 10AM.) Zhang Clement DO [Family Provider] - 1 Week (APPOITMENT ON 12/25 AT [phone]) Radha Instructions: COPD (Chronic Obstructive Pulmonary Disease) (GEN) Prescriptions: New Guaifenesin LA [Mucinex LA] 1,200 mg PO BID #120 tablet Nystatin Powder [Mycostatin] 1 applic TP BID bottle predniSONE [Prednisone] 40 mg PO DAILY #12 tablet Benzonatate [Tessalon Perles] 100 mg PO TID PRN #20 capsule PRN Reason: Cough Flecainide [Tambocor] 50 mg PO Q12HR #60 tablet Lisinopril [Prinivil] 20 mg PO DAILY #30 tablet Rivaroxaban [Xarelto] 20 mg PO WS #30 tablet Continue Tiotropium [place] [Spiriva] 1 cap ORAL INH DAILY PRN PRN Reason: Prn Orders Ipratropium/Albuterol Sulfate [Iprat-Albut 0.5-3(2.5) mg/3 ml] 3 ml AEROSOL RTQID PRN PRN Reason: Prn Orders Insulin Degludec [Tresiba Flextouch U-200] 150 unit SQ HS Insulin Aspart [Novolog Flexpen] 50 unit SQ TIDWM Duloxetine HCl [Cymbalta] 60 mg PO DAILY Naproxen 250 mg PO TID Atorvastatin Calcium 20 mg PO DAILY Ipratropium/Albuterol Sulfate [Combivent Respimat Inhal [place]] 1 puff PO QID PRN #0 PRN Reason: SHORTNESS OF AIR ARIPiprazole [Aripiprazole] 15 mg PO DAILY Albuterol Inhaler [Ventolin Hfa] 1 puff ORAL INH Q4H PRN PRN Reason: Prn Orders Metformin HCl 1,000 mg PO BIDWM hydroCHLOROthiazide [Hydrochlorothiazide] 12.5 mg PO DAILY #15 tab omeprazole 20 mg capsule,delayed release 20 mg PO DAILY #90 cap gabapentin 300 mg capsule 300 mg PO TID #270 cap Discontinued Lisinopril [Prinivil] 5 mg PO DAILY - Disposition 01 Discharged Home, Self-Care
== END 2016-12-17 15:20 | disposition home or self-care (01) | DRG 190 ==
LOC: ED 16:08 → CCU 18:58 → MED 12-12 12:17
PROVIDERS: ADMIT Internal Medicine; ATTEND Internal Medicine